=== PATIENT | male | born 1955 | race African-American/Black ===

== ENCOUNTER 2019-08-12 11:43 | Emergency (ER) | payer MEDICARE ==
[2019-08-12 12:15] LABS: ABSOLUTE EOSINOPHILS # (AUTO) 0.5 10^3/uL (0.0-0.6); ABSOLUTE MONOCYTES (AUTO) 0.5 10^3/uL (0.1-1.4); ABSOLUTE NEUT (AUTO) 3.5 10^3/uL (1.7-8.2); BASOPHILS % (AUTO) 0.7 % (0-2); EOSINOPHILS % (AUTO) 7.8 % (0-6); HEMATOCRIT 39.7 % (37.9-51.0); MEAN CORPUSCULAR HEMOGLOBIN 26.4 pg (27.0-33.4); MEAN CORPUSCULAR HGB CONC 32.8 g/dL (32.0-36.0); MEAN CORPUSCULAR VOLUME 80 fl (80-97); MONOCYTES % (AUTO) 7.7 % (3-13); PLATELET COUNT 220 10^3/uL (150-450); RED BLOOD COUNT 4.95 10^6/uL (4.35-5.55); RED CELL DISTRIBUTION WIDTH 14.2 % (11.5-14.0); SEGMENTED NEUTROPHILS % (AUTO) 53.8 % (42-78); TOTAL CELLS COUNTED % (AUTO) 100 %; WHITE BLOOD COUNT 6.5 10^3/uL (4.0-10.5)
[2019-08-12] MEDS ORDERED: ALBUTEROL SULFATE 0.083% NEB 2.5 MG/3 ML AMPUL NEB ONE ×2 (12:18→13:41)
[2019-08-12] MEDS ORDERED: IPRATROPIUM BROMIDE 0.02% NEB 0.5 MG/2.5 ML AMPUL NEB ONE (12:19)
--- NOTE | 2019-08-12 12:23 | ER Document Report ---
ED Respiratory Problem - General Chief Complaint: Chest Congestion Stated Complaint: DIFFICULTY BREATHING Primary Care Provider: ISAK MEJIA PT [Primary Care Provider] - Follow up as needed Mode of Arrival: Medic Information source: Patient, Relative - TRAVEL OUTSIDE OF THE [place] IN LAST 30 DAYS: No - HPI Patient complains to provider of: COPD, Short of breath Onset: Just prior to arrival Duration: Intermittent episodes Initiating Event: No: Allergy, Aspiration/Choking, Exertion, Exposure to chemicals, Exposure to dust, Exposure to fumes, Exposure to mold, Exposure to smoke, Out of meds, Sports/exercise, URI, Other Quality of pain: denies: No pain, Achy, Burning, Cramping, Dull, Fullness, Pressure, Sharp, Stabbing, Throbbing, Other Severity: None Pain Level: Denies Context: Hx COPD. denies: DVT, Factor V Leiden, Hx asthma, Hx CHF, Malignancy, , Recent cardiac event, Recent foreign travel, Recent long distance trvl, Recent immobilization, Recent surgery, Smoker, Other Short of Breath: Moderate Chest pain/discomfort: denies: Center, Constant, Heaviness, Intermittent, Left, Pain, Radiates to arm, Radiates to back, Radiates to jaw, Right, Tightness, Worse with deep breaths Cough: Nonproductive. denies: Productive, Stridor, Suspect aspiration Sputum amount: None At home treatment: Bronchodilators EMS treatments: Bronchodilators, Solumedrol. No: CPAP, Diuretics, Epinephrine, Nitrates, Oxygen Associated symptoms: denies: None, Ankle/leg swelling, Allergy/hay fever, Anx iety, Bloody cough, Chest pain/discomfort, Chills, Congestion, Cough, Dental decay, Difficulty breathing, Earache, Extertional dyspnea, Facial pain, Fever, Headache, Heart racing, Hoarseness, Hurts to breathe, Hyperventilation, Jaw pain, Leg/calf/joint pain, Muscle spasms, Orthopnea, PND, Runny nose, Sinus pain/pressure, Short of breath, Sore Throat, Sweaty, Tingling face, Tingling hands, Unable to swallow, Toothache, Wheezing, Other Similar symptoms previously: Yes - Related Data Allergies/Adverse Reactions: No Known Allergies Allergy (Unverified 08/12/19 12:03) Past Medical History - Social History Smoking Status: Unknown if Ever Smoked Family History: None Patient has suicidal ideation: No Patient has homicidal ideation: No - Past Medical History Cardiac Medical History: Reports: Hx Hypercholesterolemia, Hx Hypertension Endocrine Medical History: Reports: Hx Diabetes Mellitus Type 2 Past Surgical History: Reports: Hx Cardiac Surgery - stent x 2, Hx Nose Surgery - sinus sx x 2 Review of Systems - Review of Systems Constitutional: denies: No symptoms reported, See HPI, Chills, Diaphoresis, Fever, Malaise, Weakness, Other, Weight gain, Weight loss, Recent illness EENT: Nose discharge. denies: No symptoms reported, See HPI, Eye pain, Eye discharge, Blurred vision, Tearing, Double vision, Ear pain, Ear discharge, Nose pain, Nose congestion, Sinus pressure, Sinus discharge, Throat pain, Difficulty swallowing, Throat swelling, Mouth pain, Mouth swelling, Dental problem, Vertigo, Other Cardiovascular: denies: No symptoms reported, See HPI, Chest pain, Palpitations, Heart racing, Orthopnea, Dyspnea, Syncope, Dizziness, Lightheaded, Edema, Other, Paroxysmal Nocturnal Dysp Respiratory: Short of breath, Wheezing. denies: No symptoms reported, See HPI, Cough, Hurts to breathe, Hemoptysis, Sputum, Stridor, Other Gastrointestinal: denies: No symptoms reported, See HPI, Abdomen distended, Abdominal pain, Diarrhea, Nausea, Vomiting, Constipation, Blood streaked bowels, Poor appetite, Poor fluid intake, Blood in vomit, Black stools, Rectal bleeding, Last bowel movement, Fecal incontinence, Other Genitourinary: denies: No symptoms reported, See HPI, Burning, Dysuria, Discharge, Frequency, Flank pain, Hematuria, Incontinence, Pain, Urgency, Retention, Other Musculoskeletal: denies: No symptoms reported, See HPI, Back pain, Gout, Joint pain, Joint swelling, Muscle pain, Muscle stiffness, Neck pain, Deformity, Leg swelling, Ankle swelling, Other Neurological/Psychological: denies: No symptoms reported, See HPI, Confusion, Dementia, Depression, Hallucinations, Anxiety, Homicidal ideation, Sensory change, Weakness, Gait changes, Loss of power, Paralysis, Seizure, Lost consciousness, Headaches, Speech impairment, Numbness, Suicidal ideation, Tingling, Tremor, Other -: Yes All other systems reviewed and negative Physical Exam - Vital signs Vitals: Resp 14 08/12/19 11:45 Notes: PHYSICAL EXAMINATION: GENERAL: Well-appearing, well-nourished and in no acute distress. HEAD: Atraumatic, normocephalic. EYES: Pupils equal round and reactive to light, extraocular movements intact, sclera anicteric, conjunctiva are normal. ENT: nares patent, oropharynx clear without exudates. Moist mucous membranes. NECK: Normal range of motion, supple without lymphadenopathy LUNGS: Diminished air movement bilaterally however wheezes are heard bilaterally no rales or rhonchi appreciated HEART: Regular rate and rhythm without murmurs ABDOMEN: Soft, nontender, normoactive bowel sounds. No guarding, no rebound. No masses appreciated. EXTREMITIES: Normal range of motion, no pitting or edema. No cyanosis. NEUROLOGICAL: No focal neurological deficits. Moves all extremities spontaneous ly and on command. PSYCH: Normal mood, normal affect. SKIN: Warm, Dry, normal turgor, no rashes or lesions noted. Course - Vital Signs Vital signs: Temp Pulse Resp BP Pulse Ox 21 H 141/92 H 96 08/12/19 12:01 08/12/19 12:01 08/12/19 12:03 - Laboratory Result Diagrams: 08/12/19 11:50 08/12/19 11:50 Laboratory results interpreted by me: 08/12/19 08/12/19 11:50 11:50 Hgb 13.0 L MCH 26.4 L RDW 14.2 H Eos % (Auto) 7.8 H Sodium 136.8 L Glucose 195 H - Diagnostic Test Radiology reviewed: Image reviewed, Reports reviewed - EKG Interpretation by De EKG shows normal: Sinus rhythm Rate: Normal [place]/QRS: LAHB/LAFB When compared to previous EKG there are: Previous EKG unavailable - Transfer of Care Notes: 08/12/19 13:42 On reexam lungs have occasional wheezes. Patient feels better I will give him 1 more neb treatment with his labs negative and he feeling better he will go home on steroids albuterol Nebules and albuterol MDI. And follow-up with his regular doctor return if he is any worse Discharge - Discharge Clinical Impression: Bronchospasm with bronchitis, acute Clinical Impression: (Ruled Out): Bronchitis Condition: Stable Disposition: HOME, SELF-CARE Instructions: Bronchitis With Bronchospasm (Wheezing) ([facility]) Additional Instructions: If chest pain occurs shortness of breath worsens or condition worsens Prescriptions: Prednisone [Deltasone 20 mg Tablet] 20 mg PO DAILY #5 tablet Albuterol Sulfate [Proair HFA Inhalation Aerosol 8.5 gm MDI] 2 puff IH Q4H PRN #1 mdi PRN Reason: Albuterol Sulfate [Proventil 0.5% Neb 2.5 mg/0.5 ml Vial.neb] 2.5 mg NEB Q6 PRN #20 vial.neb PRN Reason: Shortness Of Breath Referrals: ISAK MEJIA, PT [Primary Care Provider] - Follow up as needed
--- NOTE | 2019-08-12 12:30 | RADIOLOGY REPORT (SQ) ---
EXAM DESCRIPTION: CHEST SINGLE VIEW COMPLETED DATE/TIME: 08/12/2019 12:21 pm REASON FOR STUDY: bed 10 sepsis protocol COMPARISON: None. EXAM PARAMETERS: NUMBER OF VIEWS: One view. TECHNIQUE: Single frontal radiographic view of the chest acquired. RADIATION DOSE: NA LIMITATIONS: None. FINDINGS: LUNGS AND PLEURA: No consolidation, pleural effusion or pneumothorax. MEDIASTINUM AND HILAR STRUCTURES: No mediastinal or hilar contour abnormality. HEART AND VASCULAR STRUCTURES: The cardiac silhouette and pulmonary vasculature are within normal lewis its. BONES: No acute findings. HARDWARE: None in the chest. OTHER: No other finding. IMPRESSION: No acute cardiopulmonary process. TECHNICAL DOCUMENTATION: JOB ID: [id number] [employer]- All Rights Reserved Reading location - IP/workstation name: [email or web address]
[2019-08-12 12:36] LABS: ALBUMIN 4.1 g/dL (3.5-5.0); ALKALINE PHOSPHATASE 66 U/L (38-126); ANION GAP 10 (5-19); ASPARTATE AMINO TRANSFERASE 22 U/L (17-59); BILIRUBIN,DIRECT 0.2 mg/dL (0.0-0.4); BILIRUBIN,TOTAL 0.4 mg/dL (0.2-1.3); BLOOD UREA NITROGEN 16 mg/dL (7-20); CALCIUM 9.4 mg/dL (8.4-10.2); CARBON DIOXIDE 24 mmol/L (22-30); CHLORIDE 103 mmol/L (98-107); GLUCOSE 195 mg/dL (75-110); POTASSIUM 4.5 mmol/L (3.6-5.0); TOTAL PROTEIN 7.4 g/dL (6.3-8.2)
[2019-08-12 12:44] LABS: INTERNATIONAL RATION (INR) 0.94; PROTHROMBIN TIME 12.6 SEC (11.4-15.4)
--- NOTE | 2019-08-12 13:32 | EKG REPORT ---
SEVERITY:- ABNORMAL ECG - SINUS RHYTHM VENTRICULAR PREMATURE COMPLEX LEFT ANTERIOR FASCICULAR BLOCK LA ENLARGEMENT : Confirmed by: Charles Mcdowell MD 12-Aug-2019 13:31:40
[2019-08-12 14:56] VITALS: BP 148/72
== END 2019-08-12 14:57 | disposition home or self-care (01) ==
LOC: ER 11:43
DX: J20.9 Acute bronchitis, unspecified (principal); J44.0 Chronic obstructive pulmonary disease with (acute) lower respiratory infection; Z79.899 Other long term (current) drug therapy; I44.4 Left anterior fascicular block; I10 Essential (primary) hypertension; E11.9 Type 2 diabetes mellitus without complications; Z95.5 Presence of coronary angioplasty implant and graft
CPT/HCPCS: 93005; 36415; 85025; 85610; 80053; 84484; 71045; 93010; A9270; J3490; 94640; 99285

== ENCOUNTER 2019-10-02 05:36 | Emergency (ER) | payer MEDICARE ==
[2019-10-02] MEDS ORDERED: IPRATROPIUM/ALBUTEROL 0.5-2.5 MG/3 ML AMPUL NEB ONE (05:44)
[2019-10-02] MEDS ORDERED: NORMAL SALINE 1000 ML 1,000 ML IV ONE (05:44)
--- NOTE | 2019-10-02 05:47 | ER Document Report ---
ED Medical Screen (RME) - General Stated Complaint: TROUBLE BREATHING Time Seen by Provider: 10/02/19 05:39 Primary Care Provider: ISAK MEJIA PT [Primary Care Provider] - Follow up as needed Notes: 64-year-old male that comes emergency department by EMS for chief complaint of cough and difficulty breathing. Reportedly patient has had a cough for 10 days, he was seen, diagnosed with bronchitis, placed on amoxicillin. He has a history of CAD and stents, insulin-dependent diabetes, denies smoking, asthma, COPD, CHF history. Patient initially 91% on room air per EMS, given 1 albuterol and 2 duo nebs in route along with 125 mg of Solu-Medrol. Patient has improved his oxygenation and breathing rate per EMS. TRAVEL OUTSIDE OF THE [place] IN LAST 30 DAYS: No - Related Data Allergies/Adverse Reactions: No Known Allergies Allergy (Unverified 08/12/19 12:03) Past Medical History - Past Medical History Cardiac Medical History: Reports: Hx Hypercholesterolemia, Hx Hypertension Endocrine Medical History: Reports: Hx Diabetes Mellitus Type 2 Past Surgical History: Reports: Hx Cardiac Surgery - stent x 2, Hx Nose Surgery - sinus sx x 2 Physical Exam - Respiratory Breath sounds: Decreased air movement, Nonproductive cough - Frequent nonproductive coughing episodes but patient is oxygenating well, has only borderline tachypnea, is able to respond to questions without difficulty, Wheezing Course - Re-evaluation Re-evalutation: I have greeted and performed a rapid initial assessment of this patient. A comprehensive ED assessment and evaluation of the patient, analysis of test results and completion of the medical decision making process will be conducted by additional ED providers. Doctor's Discharge - Discharge Referrals: ISAK MEJIA PT [Primary Care Provider] - Follow up as needed
[2019-10-02 06:21] LABS: VENOUS BLOOD HCO3 25.5 mmol/L (20-32); VENOUS BLOOD PCO2 49.3 mmHg (35-63); VENOUS BLOOD PH 7.33 (7.30-7.42)
[2019-10-02 06:24] LABS: ABSOLUTE BASOPHILS # (AUTO) 0.1 10^3/uL (0.0-0.2); ABSOLUTE LYMPHOCYTES (AUTO) 1.8 10^3/uL (0.5-4.7); ABSOLUTE MONOCYTES (AUTO) 0.7 10^3/uL (0.1-1.4); ABSOLUTE NEUT (AUTO) 5.3 10^3/uL (1.7-8.2); BASOPHILS % (AUTO) 0.9 % (0-2); HEMATOCRIT 38.6 % (37.9-51.0); HEMOGLOBIN 12.6 g/dL (13.5-17.0); LYMPHOCYTES % (AUTO) 19.9 % (13-45); MEAN CORPUSCULAR HEMOGLOBIN 26.3 pg (27.0-33.4); MEAN CORPUSCULAR HGB CONC 32.7 g/dL (32.0-36.0); MEAN CORPUSCULAR VOLUME 80 fl (80-97); MONOCYTES % (AUTO) 8.2 % (3-13); PLATELET COUNT 255 10^3/uL (150-450); RED BLOOD COUNT 4.81 10^6/uL (4.35-5.55); RED CELL DISTRIBUTION WIDTH 14.5 % (11.5-14.0); TOTAL CELLS COUNTED % (AUTO) 100 %; WHITE BLOOD COUNT 8.9 10^3/uL (4.0-10.5)
[2019-10-02 06:37] LABS: ALBUMIN 4.2 g/dL (3.5-5.0); ALKALINE PHOSPHATASE 102 U/L (38-126); ANION GAP 10 (5-19); ASPARTATE AMINO TRANSFERASE 30 U/L (17-59); BILIRUBIN,DIRECT 0.2 mg/dL (0.0-0.4); BILIRUBIN,TOTAL 0.4 mg/dL (0.2-1.3); BLOOD UREA NITROGEN 15 mg/dL (7-20); CALCIUM 9.5 mg/dL (8.4-10.2); CARBON DIOXIDE 28 mmol/L (22-30); CHLORIDE 104 mmol/L (98-107); GLUCOSE 133 mg/dL (75-110); POTASSIUM 4.2 mmol/L (3.6-5.0); TOTAL PROTEIN 7.9 g/dL (6.3-8.2)
[2019-10-02 06:44] LABS: A TYPE INFLUENZA AG NEGATIVE (NEGATIVE); B INFLUENZA AG NEGATIVE (NEGATIVE)
--- NOTE | 2019-10-02 07:39 | RADIOLOGY REPORT (SQ) ---
EXAM DESCRIPTION: X-ray single view chest. CLINICAL HISTORY: 64 years Male, difficulty breathing COMPARISON: 08/12/2019 TECHNIQUE: Single portable x-ray view of the chest performed on 10/02/2019 at 6:54 AM FINDINGS: The lungs are well expanded and are clear. There is no evidence of a pneumothorax. The cardiac silhouette is normal in size and configuration. The mediastinal contours are normal. No acute osseous abnormality is identified. No focal soft tissue abnormalities are seen. Lines and tubes: None. IMPRESSION: No evidence of acute intrathoracic disease.
--- NOTE | 2019-10-02 08:00 | ER Document Report ---
ED General - General Chief Complaint: Shortness Of Breath Stated Complaint: TROUBLE BREATHING Time Seen by Provider: 10/02/19 05:39 Primary Care Provider: ISAK MEJIA PT [NO LOCAL MD] - Follow up as needed TRAVEL OUTSIDE OF THE [place] IN LAST 30 DAYS: No - HPI Notes: Patient is a 64-year-old male who presents emergency department for evaluation. He is deaf in 1 year, has been having difficulty hearing from the other, so the is the primary historian. Evidently just after [place] the patient developed a cough. It is continued, and now he is wheezing. He has had wheezing in the past. He actually has an nebulizer at home, but admits he is not been using it very frequently. He used it once in the middle the night, then called EMS when he was found to be more short of breath. states she just thinks he is coughing way too much. He has been on Tessalon Perles, which seem to be working only minimally. He was started on amoxicillin, started twice a day dosing on Saturday. states she has seen no improvement. He denies any pain of any sort. No nausea or vomiting. No known fevers. Eating and drinking normally. Normal bowel movements and urination. - Related Data Allergies/Adverse Reactions: No Known Allergies Allergy (Unverified 08/12/19 12:03) Home Medications: List reviewed, please see note Past Medical History - General Information source: Patient, Relative - - Social History Smoking Status: Never Smoker Chew tobacco use (# tins/day): No Frequency of alcohol use: None Drug Abuse: None Family History: None Patient has suicidal ideation: No Patient has homicidal ideation: No - Past Medical History Cardiac Medical History: Reports: Hx Coronary Artery Disease, Hx Hypercholesterolemia, Hx Hypertension Endocrine Medical History: Reports: Hx Diabetes Mellitus Type 2 Past Surgical History: Reports: Hx Cardiac Surgery - stent x 2, Hx Nose Surgery - sinus sx x 2 Review of Systems - Review of Systems Constitutional: No symptoms reported EENT: No symptoms reported Cardiovascular: No symptoms reported Physical Exam - Vital signs Vitals: Resp Pulse Ox 13 100 10/02/19 05:39 10/02/19 05:39 - Notes Notes: Vital signs reviewed, please refer to chart. Head is normocephalic, atraumatic. Pupils equal round, reactive to light. Right TM is obscured by cerumen. Oral mucosa is moist. Neck is supple without meningismus. Heart is regular rate and rhythm. Lungs reveal scattered rhonchi and occasional expiratory wheezes. Abdomen is soft, nontender, normoactive bowel sounds throughout. Extremities without cyanosis, clubbing. Posterior calves are nontender. 1+ bilateral pitting edema to calves. Peripheral pulses are equal. Skin is warm and dry. Patient is awake, alert, neurological exam is nonfocal. Course - Re-evaluation Re-evalutation: 10/02/19 08:01 Patient presents emergency department for evaluation. He had original medical exam was performed by the physician environmental emergencies assistant, please see his note. In short, this patient presented with a cough, has extensive wheezing. He is feeling improved significantly per the patient, looks improved significantly per the . Clinically, I am concerned about the possibility of a pneumonia in this 64-year-old gentleman with multiple medical issues. I will get him treated as such with a fluoroquinolone. His right TM is not visualized secondary to cerumen impaction. Orders placed for ear irrigation, nursing to complete. We will continue to monitor. 10/02/19 08:31 Irrigation of the ear is complete with complete resolution of impaction. Right TM is pearly andino with good light reflex. Patient is feeling improved. He is 94 to 96% on room air. I do have a clinical suspicion of pneumonia in this patient. He has not had any significant improvement. He has multiple comorbidities. I will go ahead and treat him for pneumonia. He is given his first dose of Levaquin here. I will send him home with Levaquin. He is instructed to take [id number] Robitussin in addition to the Tessalon Perles. He is to follow-up with primary care next week. He is again reminded that he needs to use his nebulizers at least 4 times a day. He and his both voiced understanding and the patient was discharged. - Vital Signs Vital signs: Temp Pulse Resp BP Pulse Ox 97.4 F 17 158/81 H 94 10/02/19 05:49 10/02/19 08:01 10/02/19 07:34 10/02/19 08:01 - Laboratory Result Diagrams: 10/02/19 06:00 10/02/19 06:00 Laboratory results interpreted by me: 10/02/19 10/02/19 10/02/19 06:00 06:00 07:44 Hgb 12.6 L MCH 26.3 L RDW 14.5 H Eos % (Auto) 11.0 H Absolute Eos (auto) 1.0 H Glucose 133 H POC Glucose 161 H - Diagnostic Test Radiology reviewed: Image reviewed, Reports reviewed Radiology results interpreted by me: 10/02/19 08:02 Chest X-Ray 10/02/19 05:43 IMPRESSION: No evidence of acute intrathoracic disease. - EKG Interpretation by Me Additional EKG results interpreted by me: 10/02/19 08:33 Sinus tachycardia with a rate of 111 bpm. Left axis deviation. No acute ST changes concerning for ischemia or infarction. Discharge - Discharge Clinical Impression: Impacted cerumen, right ear Pneumonia Qualifiers: Pneumonia type: due to unspecified organism Laterality: unspecified laterality Lung location: unspecified part of lung Qualified Code(s): J18.9 - Pneumonia, unspecified organism Condition: Stable Disposition: HOME, SELF-CARE Instructions: Pneumonia ([facility]) Additional Instructions: Clinically, your findings are most consistent with pneumonia. You can continue Tessalon Perles, also use Robitussin, plain, [id number] as needed for coughing. Take all the Levaquin as prescribed, starting tomorrow. Follow-up with primary care next week. Return to the emergency department with worsening or new concerning symptoms of any sort. Prescriptions: Levofloxacin [Levaquin 750 mg Tablet] 750 mg PO DAILY #4 tablet Referrals: ISAK MEJIA, PT [NO LOCAL MD] - Follow up as needed
[2019-10-02] MEDS ORDERED: GUAIFENESIN SYRP 200 MG/10 ML UDC PO ONE (08:30)
[2019-10-02] MEDS ORDERED: LEVOFLOXACIN 750 MG TABLET PO ONE (08:30)
[2019-10-02 08:54] VITALS: BP 157/82
--- NOTE | 2019-10-02 20:54 | EKG REPORT ---
SEVERITY:- ABNORMAL ECG - SINUS TACHYCARDIA LAD, CONSIDER LAFB OR INFERIOR INFARCT : Confirmed by: Parth Rivera 02-Oct-2019 20:54:09
== END 2019-10-02 08:54 | disposition home or self-care (01) ==
LOC: ER 05:36
DX: J18.9 Pneumonia, unspecified organism (principal); H61.21 Impacted cerumen, right ear; R00.0 Tachycardia, unspecified; R05 Cough; R06.2 Wheezing; R60.0 Localized edema; I25.10 Atherosclerotic heart disease of native coronary artery without angina pectoris; I10 Essential (primary) hypertension; E11.9 Type 2 diabetes mellitus without complications; Z95.5 Presence of coronary angioplasty implant and graft
CPT/HCPCS: 93005; 94640; 99285; 96360; 36415; 87040; 82962; 83605; 85025; 80053; 84484; 82803; 87804; 71045; 93010; A9270 ×3; J7030; J7620

== ENCOUNTER 2019-10-09 03:07 | Emergency (ER) | payer MEDICARE ==
--- NOTE | 2019-10-09 03:30 | ER Document Report ---
ED Respiratory Problem - General Chief Complaint: Shortness Of Breath Stated Complaint: SHORTNESS OF BREATH Time Seen by Provider: 10/09/19 03:16 Primary Care Provider: CATHERINE AVERY PA-C [Primary Care Provider] - Follow up in 3-5 days Information source: Relative Notes: 64-year-old male presented to ED for continued shortness of breath and cough since he was seen here on 02 October and diagnosed with pneumonia. She states he has been coughing more and more his secretions are clear patient is deaf and his family member is discussed with him his care. Patient has been treated with amoxicillin and then Levaquin has finished his Levaquin has not feeling any better. On route EMS did give him to [facility] nebulizer treatments and 125 of Solu- Medrol. TRAVEL OUTSIDE OF THE [place] IN LAST 30 DAYS: No - HPI Patient complains to provider of: Cough, Short of breath Onset: Last week Duration: Intermittent episodes Initiating Event: URI Quality of pain: No pain Severity: None Pain Level: Denies Cough: Productive Sputum amount: Small Sputum color: Clear At home treatment: Bronchodilators EMS treatments: Bronchodilators, Solumedrol Associated symptoms: Cough, PND, Runny nose, Short of breath Similar symptoms previously: Yes Recently seen / treated by doctor: Yes - Related Data Allergies/Adverse Reactions: No Known Allergies Allergy (Unverified 08/12/19 12:03) Past Medical History - General Information source: Relative - - Social History Smoking Status: Never Smoker Frequency of alcohol use: None Drug Abuse: None Lives with: Family Family History: None Patient has suicidal ideation: No Patient has homicidal ideation: No - Medical History Medical History: Other - Deaf - Past Medical History Cardiac Medical History: Reports: Hx Coronary Artery Disease, Hx Hypercholesterolemia, Hx Hypertension Pulmonary Medical History: Reports: None EENT Medical History: Reports: None Neurological Medical History: Reports: None Endocrine Medical History: Reports: Hx Diabetes Mellitus Type 2 Renal/ Medical History: Reports: None Malignancy Medical History: Reports None GI Medical History: Reports: None Musculoskeletal Medical History: Reports None Skin Medical History: Reports None Psychiatric Medical History: Reports: None Traumatic Medical History: Reports: None Infectious Medical History: Reports: None Past Surgical History: Reports: Hx Cardiac Surgery - stent x 2, Hx Nose Surgery - sinus sx x 2 - Immunizations Immunizations up to date: Yes Hx Diphtheria, Pertussis, Tetanus Vaccination: Yes Review of Systems - Review of Systems Constitutional: No symptoms reported EENT: Nose discharge, Sinus discharge Cardiovascular: No symptoms reported Respiratory: Cough, Short of breath, Sputum Gastrointestinal: No symptoms reported Genitourinary: No symptoms reported Male Genitourinary: No symptoms reported Musculoskeletal: No symptoms reported Skin: No symptoms reported Hematologic/Lymphatic: No symptoms reported Neurological/Psychological: No symptoms reported Physical Exam - Vital signs Vitals: Resp Pulse Ox 22 H 100 10/09/19 03:19 10/09/19 03:19 Interpretation: Normal - General General appearance: Appears well, Alert - HEENT Head: Normocephalic, Atraumatic Eyes: Normal Pupils: PERRL - Respiratory Respiratory status: No respiratory distress Chest status: Nontender Breath sounds: Normal, Productive cough, Rhonchi Chest palpation: Normal - Cardiovascular Rhythm: Regular Heart sounds: Normal auscultation Murmur: No - Abdominal Inspection: Normal Distension: No distension Bowel sounds: Normal Tenderness: Nontender Organomegaly: No organomegaly - Back Back: Normal, Nontender - Extremities General upper extremity: Normal inspection, Nontender, Normal color, Normal ROM, Normal temperature General lower extremity: Normal inspection, Nontender, Normal color, Normal ROM, Normal temperature, Normal weight bearing. No: Marilee's sign - Neurological Neuro grossly intact: Yes Cognition: Normal Orientation: AAOx4 [place] Coma Scale Eye Opening: Spontaneous [place] Coma Scale Verbal: Oriented Michael Coma Scale Motor: Obeys Commands [place] Coma Scale Total: 15 Speech: Normal Motor strength normal: LUE, RUE, LLE, RLE Sensory: Normal - Psychological Associated symptoms: Normal affect, Normal mood - Skin Skin Temperature: Warm Skin Moisture: Dry Skin Color: Normal Course - Re-evaluation Re-evalutation: 10/09/19 04:47 After performing a Medical Screening Examination, I estimate there is LOW risk for ACUTE CORONARY SYNDROME, RESPIRATORY FAILURE, SEPSIS OR MENINGITIS, thus I consider the discharge disposition reasonable. I have reevaluated this patient multiple times and no significant life threatening changes are noted. The patient and I have discussed the diagnosis and risks, and we agree with discharging home with close follow-up. We also discussed returning to the Emergency Department immediately if new or worsening symptoms occur. We have discussed the symptoms which are most concerning (e.g., changing or worsening pain, trouble swallowing or breathing, neck stiffness, fever) that necessitate immediate return. - Vital Signs Vital signs: Temp Pulse Resp BP Pulse Ox 98.1 F 20 138/88 H 100 10/09/19 03:29 10/09/19 04:01 10/09/19 04:45 10/09/19 04:01 - Diagnostic Test Radiology reviewed: Image reviewed, Reports reviewed Discharge - Discharge Clinical Impression: URI (upper respiratory infection) Qualifiers: URI type: unspecified viral URI Qualified Code(s): J06.9 - Acute upper respiratory infection, unspecified Condition: Stable Disposition: HOME, SELF-CARE Additional Instructions: UPPER RESPIRATORY ILLNESS: You have a viral infection of the respiratory passages -- a "cold." This common infection causes nasal congestion, drainage, and often sore throat and cough. It is highly contagious. The disease usually lasts about 10 to 14 days. There is no "cure" for the viral infection -- it must run its course. If there is a complication, such as bacterial infection in the nose, sinuses, middle ear, or bronchial tubes, antibiotics may be required. The antibiotics won't affect the virus. Drink plenty of fluids. A humidifier may help. An expectorant medication or decongestant may make you more comfortable. Use acetaminophen or ibuprofen for fever or aches. See the doctor if fever persists over two days, if there is any significant worsening of your symptoms, or if you simply fail to improve as expected. Coricidin H BP is the cold treatment for person with elevated blood pressure. [id number] medicine just ask your pharmacist if you cannot find it. You could also use Flonase which is [id number] 1 spray each nostril twice a day. You could also use salt soda solution gargles. These will help to remove the drainage from the back your throat. Salt and soda solution gargle 1 quart of water 1 tablespoon of salt 1 teaspoon of baking soda Mixed 3 ingredients together and boil for 1 minute Placed in a covered quart jar Use 1/2 ounce of cold solution to gargle 3 times a day COUGH-SUPPRESSANT & EXPECTORANT MEDICATION: You are to use a cough medication as needed for relief of symptoms. This medicine is a combination of an expectorant (to make the mucous thinner and more easily "coughed up") and a cough suppressant (to reduce the frequency of coughing). The cough-suppressant medicine is related to narcotics. You may experience mild nausea and sleepiness. Some patients who are very sensitive to narcotics may have stomach pain from this medicine. Taking the medicine with food reduces these side effects. Do not drive or work with machinery until you know how this medicine affects you. The expectorant should have no side effects. Iodine-containing expectorants (such as organidin) should not be taken by persons with active thyroid disease unless approved by your doctor. Call the doctor if you develop shortness of breath, hives, rash, itching, lightheadedness, or severe nausea and vomiting. INHALED BRONCHODILATORS: You have received a treatment of and/or prescription for an inhaled bronchodilator -- a medication which stimulates the airways in the lung to dilate. This improves the flow of air in asthma, bronchitis, and emphysema. These medicines have some similarity to adrenaline, and can cause similar side effects: shakiness, racing heart, and a sense of nervousness. These side effects decrease with time. Contact your doctor if these side effects are severe. Do not over-use the medicine. Too-frequent use of the inhaler may make it ineffective. Call your doctor if the inhaler is not controlling your symptoms at the prescribed doses. STEROID MEDICATION: You have been given an injection of or oral medicine of the cortisone/steroid class. This medication is used to control inflammation or allergy. Raciel t is usually only given for a short period of time, until the acute process subsides. There are usually no side effects from short-term use of cortisone-like medications. Some persons feel an increased sense of well-being and are not sleepy at bedtime. Long-term use of cortisone medications is best avoided, unless required for a severe condition. If your condition does not remit, or relapses after the course of corticosteroid medication, you should consult your physician. USE OF ACETAMINOPHEN (Tylenol): Acetaminophen may be taken for pain relief or fever control. It's much safer than aspirin, offering a wider range of "safe" dosages. It is safe during . Some brand names are Tylenol, Panadol, Datril, Anacin 3, Tempra, and Liquiprin. Acetaminophen can be repeated every four hours. The following are maximum recommended dosages: >89 pounds or adults 650 mg to 900 mg Acetaminophen can be repeated every four hours. Maximum dose not to exceed 4000 mg a day. FOLLOW-UP CARE: If you have been referred to a physician for follow-up care, call the physicians office for an appointment as you were instructed or within the next two days. If you experience worsening or a significant change in your symptoms, notify the physician immediately or return to the Emergency Department at any time for re-evaluation. Forms: Elevated Blood Pressure Referrals: CATHERINE AVERY PA-C [Primary Care Provider] - Follow up in 3-5 days
--- NOTE | 2019-10-09 04:34 | RADIOLOGY REPORT (SQ) ---
EXAM DESCRIPTION: XR CHEST 2 VIEWS COMPLETED DATE/TME: 10/09/2019 03:24 CLINICAL HISTORY: 64 years, Male, cough congestion COMPARISON: October 02, 2019 NUMBER OF VIEWS: 2 TECHNIQUE: LIMITATIONS: None. FINDINGS: Cardiomediastinal silhouette is stable. Mild chronic parenchymal lung change. No consolidation. No effusion. No pneumothorax IMPRESSION: No active intrathoracic disease copyright 2010 [employer]- All Rights Reserved
[2019-10-09 04:45] VITALS: BP 138/88
== END 2019-10-09 05:00 | disposition home or self-care (01) ==
LOC: ER 03:07
DX: J06.9 Acute upper respiratory infection, unspecified (principal); R06.02 Shortness of breath; R05 Cough; R09.82 Postnasal drip; R09.89 Other specified symptoms and signs involving the circulatory and respiratory systems; I25.10 Atherosclerotic heart disease of native coronary artery without angina pectoris; I10 Essential (primary) hypertension; E11.9 Type 2 diabetes mellitus without complications
CPT/HCPCS: 71046; 99283

== ENCOUNTER 2019-10-15 04:01 | Emergency (ER) | payer MEDICARE ==
[2019-10-15] MEDS ORDERED: LIDOCAINE 1% INJ (10 MG/ML) 10 ML MDV INJ ONE (06:50)
[2019-10-15] MEDS ORDERED: IPRATROPIUM/ALBUTEROL 0.5-2.5 MG/3 ML AMPUL NEB ONE (06:50)
[2019-10-15 07:08] LABS: APPEARANCE,URINE CLEAR; BILIRUBIN,URINE NEGATIVE (NEGATIVE); COLOR,URINE YELLOW; GLUCOSE, URINE NEGATIVE (NEGATIVE); KETONES,URINE NEGATIVE (NEGATIVE); LEUKOCYTE ESTERASE,URINE NEGATIVE (NEGATIVE); NITRITE,URINE NEGATIVE (NEGATIVE); PROTEIN,URINE NEGATIVE (NEGATIVE); URINE SPECIFIC GRAVITY 1.011; UROBILINOGEN,URINE NEGATIVE mg/dL (<2.0)
--- NOTE | 2019-10-15 07:18 | ER Document Report ---
Entered by TONY SARAH SCRIBE 10/15/19 0639 Acting as scribe for:PABLITO MELENDEZ MD ED Respiratory Problem - General Chief Complaint: Cough Stated Complaint: COUGHING Time Seen by Provider: 10/15/19 06:37 Primary Care Provider: CATHERINE AVERY PA-C [Primary Care Provider] - Follow up as needed Information source: Relative Notes: This 64-year-old male patient presents to the emergency department today with complaints of a continued cough with associated shortness of breath and wheezing for weeks according to family member at bedside. This is the patient's third visit in the last x2 weeks for these same complaints. On 10/02/2019 the patient was discharged on Levaquin and told to use his nebulizer for his wheezing. On 10/09/2022 was seen in the emergency room and treated and discharged with no change in his medications. He has continued to cough and wheeze since then. Patient spouse reports that his cough has been productive, initially was yellow and changed to clear after the Levaquin. Patient has a nebulizer at home which he uses about 3x a day. PCP: Dr. Mike Hicks TRAVEL OUTSIDE OF THE [place] IN LAST 30 DAYS: No - Related Data Allergies/Adverse Reactions: No Known Allergies Allergy (Unverified 08/12/19 12:03) Past Medical History - General Information source: Relative, [facility], [facility] Records - Social History Smoking Status: Never Smoker Cigarette use (# per day): No Frequency of alcohol use: None Drug Abuse: None Lives with: Family Family History: None Patient has suicidal ideation: No Patient has homicidal ideation: No - Past Medical History Cardiac Medical History: Reports: Hx Coronary Artery Disease, Hx Hypercholesterolemia, Hx Hypertension Endocrine Medical History: Reports: Hx Diabetes Mellitus Type 2 Past Surgical History: Reports: Hx Cardiac Surgery - stent x 2, Hx Nose Surgery - sinus sx x 2 - Immunizations Immunizations up to date: Yes Hx Diphtheria, Pertussis, Tetanus Vaccination: Yes Review of Systems - Review of Systems Constitutional: denies: Fever EENT: No symptoms reported Cardiovascular: No symptoms reported Respiratory: See HPI, Cough, Short of breath, Sputum, Wheezing Gastrointestinal: No symptoms reported Genitourinary: No symptoms reported Male Genitourinary: No symptoms reported Musculoskeletal: No symptoms reported Skin: No symptoms reported Hematologic/Lymphatic: No symptoms reported Neurological/Psychological: No symptoms reported -: Yes All other systems reviewed and negative Physical Exam - Vital signs Vitals: Resp 18 10/15/19 04:10 - Notes Notes: Physical Exam: General: Alert, appears well. Difficulty hearing at baseline. HEENT: Normocephalic. Atraumatic. PERRL. Extraocular movements intact. Oropharynx clear. Difficulty hearing at baseline. Thick saliva. No posterior oropharynx erythema or exudate. TMs are clear and non-bulging. Neck: Supple. Non-tender. Respiratory: Mild to moderate respiratory distress. Coughs throughout exam, audible inspiratory and expiratory wheezing bilaterally. Cardiovascular: Regular rate and rhythm. Abdominal: Normal Inspection. Non-tender. No distension. Normal Bowel Sounds. Back: No gross abnormalities. Extremities: Moves all four extremities. Upper extremities: Normal inspection. Normal ROM. Lower extremities: Normal inspection. No edema. Normal ROM. Neurological: Normal cognition. AAOx4. Normal speech. Psychological: Normal affect. Normal Mood. Skin: Warm. Dry. Normal color. Course - Re-evaluation Re-evalutation: 10/15/19 09:19 After breathing treatments and magnesium, the patient states he feels much better. The wheezing is markedly reduced and mostly heard only when the patient coughs. There is still some rhonchi when he coughs but that is also markedly reduced after the breathing treatments. - Vital Signs Vital signs: Temp Pulse Resp BP Pulse Ox 98.2 F 19 162/103 H 96 10/15/19 04:19 10/15/19 08:01 10/15/19 08:01 10/15/19 08:01 - Laboratory Result Diagrams: 10/15/19 07:08 Laboratory results interpreted by me: 10/15/19 07:08 Glucose 189 H Creatine Kinase 317 H - EKG Interpretation by Mo EKG shows normal: Sinus rhythm, [place], Intervals, QRS Complexes, ST-T Waves Rate: Normal - 83 Rhythm: Arrthymia, PVC's [place]/QRS: LAHB/LAFB When compared to previous EKG there are: No significant change Discharge - Discharge Clinical Impression: Viral upper respiratory tract infection with cough, Acute bronchitis with bro nchospasm Condition: Stable Disposition: HOME, SELF-CARE Additional Instructions: Upper Respiratory Illness: You have a viral infection of the respiratory passages -- a "cold." This common infection causes nasal congestion, drainage, and often sore throat and cough. It is caused by a virus and is highly contagious. The disease usually lasts a week or more, though the worst symptoms are usually over in 3 or 4 days. There is no "cure" for the viral infection -- it must run its course. If there is a complication, such as bacterial infection in the nose, sinuses, middle ear, or bronchial tubes, antibiotics may be required, but antibiotics won't affect the virus. If you smoke, you should STOP!! Drink plenty of fluids. A humidifier may help. An expectorant medication or decongestant may make you more comfortable. Use acetaminophen or ibuprofen for fever or aches. See the doctor if fever persists over two or three days, if there is any significant worsening of your symptoms, or if you simply fail to improve as expected. Bronchitis with Bronchospasm (Wheezing): You have bronchitis with bronchospasm (wheezing). Sometimes people develop wheezing with a chest cold. This occurs either because of an underlying tendency toward asthma or because the virus itself irritates the bronchial tubes. This irritation causes cough, shortness of breath, and wheezing. Emergency treatment of bronchospasm may include adrenaline shots or bronchodilator aerosol. You may feel lightheaded and have a rapid pulse for an hour or two. Rest and get plenty of fluids. At home, we'll treat you with a bronchodilator inhaler. Corticosteroids may be required for some patients. Until you recover, avoid chemical fumes, dusts, pollens, and exercising in very cold or dry air. If you smoke, stop now! Most cases of bronchitis get better without antibiotics. We prescribe antibiotics when we believe bacteria are damaging your airways, or if there's high risk the bronchitis will worsen into pneumonia. Increase your fluid intake. A cool mist humidifier may make your lungs more comfortable. An expectorant (cough medicine that loosens phlegm) can help. Repeated episodes of bronchitis and bronchospasm may result in lung damage -- for example, chronic bronchitis, recurrent pneumonias, or emphysema. If you develop a fever, increased wheezing, chest pain, or severe shortness of breath, you should contact the doctor immediately. Take medications as prescribed. The prednisone is to suppress inflammation in your airways. It will likely make your blood sugars run higher, so check your sugars regularly and adjust your insulin dosing as needed. The Tessalon Perles are to help suppress your cough. The hydrocodone with acetaminophen tablets will be used to help suppress your cough. You can also add Delsym DM or the generic version to help control your cough. Be sure you drink plenty of fluids. Use your nebulizer every 4 hours. Follow-up with your primary care provider in the next few days for recheck if not improving. RETURN TO THE EMERGENCY ROOM IF ANY NEW OR WORSENING SYMPTOMS. Prescriptions: Prednisone [Deltasone 10 mg Tablet] 10 mg PO ASDIR PRN #21 tablet PRN Reason: Hydrocodone/Acetaminophen [[place] 5-325 mg Tablet] 1 tab PO ASDIR PRN #15 tablet PRN Reason: Benzonatate [Tessalon Perles 100 mg Capsule] 100 mg PO ASDIR PRN #30 capsule PRN Reason: Referrals: CATHERINE AVERY PA-C [Primary Care Provider] - Follow up as needed Scribe Attestation: 10/15/19 09:21 I personally performed the services described in the documentation, reviewed and edited the documentation which was dictated to the scribe in my presence, and it accurately records my words and actions. I personally performed the services described in the documentation, reviewed and edited the documentation which was dictated to the scribe in my presence, and it accurately records my words and actions.
[2019-10-15 07:42] LABS: ALBUMIN 4.3 g/dL (3.5-5.0); ALKALINE PHOSPHATASE 110 U/L (38-126); ANION GAP 7 (5-19); ASPARTATE AMINO TRANSFERASE 23 U/L (17-59); BILIRUBIN,TOTAL 0.3 mg/dL (0.2-1.3); BLOOD UREA NITROGEN 12 mg/dL (7-20); CALCIUM 9.6 mg/dL (8.4-10.2); CARBON DIOXIDE 28 mmol/L (22-30); CHLORIDE 103 mmol/L (98-107); CREATINE KINASE 317 U/L (55-170); GLUCOSE 189 mg/dL (75-110); POTASSIUM 4.6 mmol/L (3.6-5.0); TOTAL PROTEIN 7.8 g/dL (6.3-8.2)
[2019-10-15] MEDS: MAGNESIUM SULFATE/D5W 1 GM/100 ML RTUPB IV SCH ×2 (08:01→08:54)
[2019-10-15] MEDS ORDERED: ALBUTEROL SULFATE 0.083% NEB 2.5 MG/3 ML AMPUL NEB ONE (08:07)
--- NOTE | 2019-10-15 09:17 | RADIOLOGY REPORT (SQ) ---
EXAM DESCRIPTION: CHEST SINGLE VIEW COMPLETED DATE/TIME: 10/15/2019 8:43 am REASON FOR STUDY: COPD exacerbation COMPARISON: 10/09/2019. EXAM PARAMETERS: NUMBER OF VIEWS: One view. TECHNIQUE: Single frontal radiographic view of the chest acquired. RADIATION DOSE: NA LIMITATIONS: None. FINDINGS: LUNGS AND PLEURA: No opacities, masses or pneumothorax. No pleural effusion. MEDIASTINUM AND HILAR STRUCTURES: No masses. Contour normal. HEART AND VASCULAR STRUCTURES: Heart normal in size. Normal vasculature. BONES: No acute findings. Degenerative changes in the spine. HARDWARE: None in the chest. OTHER: No other significant finding. IMPRESSION: NO ACUTE RADIOGRAPHIC FINDING IN THE CHEST. TECHNICAL DOCUMENTATION: JOB ID: [id number] [employer]- All Rights Reserved Reading location - IP/workstation name: [email or web address]
[2019-10-15 09:32] VITALS: BP 175/103
--- NOTE | 2019-10-15 12:35 | EKG REPORT ---
SEVERITY:- ABNORMAL ECG - SINUS ARRHYTHMIA, RATE 75-92 VENTRICULAR PREMATURE COMPLEX LEFT ANTERIOR FASCICULAR BLOCK : Confirmed by: Charles Mcdowell MD 15-Oct-2019 12:35:08
== END 2019-10-15 09:37 | disposition home or self-care (01) ==
LOC: ER 04:01
DX: J20.9 Acute bronchitis, unspecified (principal); J06.9 Acute upper respiratory infection, unspecified; B97.89 Other viral agents as the cause of diseases classified elsewhere; R05 Cough; R06.02 Shortness of breath; R06.2 Wheezing; I10 Essential (primary) hypertension; I25.10 Atherosclerotic heart disease of native coronary artery without angina pectoris; I44.4 Left anterior fascicular block; I49.3 Ventricular premature depolarization; E11.9 Type 2 diabetes mellitus without complications; Z95.5 Presence of coronary angioplasty implant and graft; Z79.899 Other long term (current) drug therapy
CPT/HCPCS: 93005; 99284; 36415; 82550; 80053; 81001; 84484; 71045; 93010; J3475; A9270 ×2; J7620

== ENCOUNTER 2019-10-24 03:37 | Emergency (ER) | payer MEDICARE ==
[2019-10-24] MEDS ORDERED: IPRATROPIUM/ALBUTEROL 0.5-2.5 MG/3 ML AMPUL NEB ONE (04:03)
[2019-10-24 06:14] LABS: ABSOLUTE EOSINOPHILS # (AUTO) 0.2 10^3/uL (0.0-0.6); ABSOLUTE LYMPHOCYTES (AUTO) 0.4 10^3/uL (0.5-4.7); ABSOLUTE MONOCYTES (AUTO) 0.1 10^3/uL (0.1-1.4); ABSOLUTE NEUT (AUTO) 5.7 10^3/uL (1.7-8.2); BASOPHILS % (AUTO) 0.7 % (0-2); EOSINOPHILS % (AUTO) 3.3 % (0-6); HEMATOCRIT 39.5 % (37.9-51.0); HEMOGLOBIN 12.9 g/dL (13.5-17.0); LYMPHOCYTES % (AUTO) 6.3 % (13-45); MEAN CORPUSCULAR HEMOGLOBIN 26.4 pg (27.0-33.4); MEAN CORPUSCULAR HGB CONC 32.6 g/dL (32.0-36.0); MEAN CORPUSCULAR VOLUME 81 fl (80-97); MONOCYTES % (AUTO) 2.3 % (3-13); PLATELET COUNT 242 10^3/uL (150-450); RED BLOOD COUNT 4.87 10^6/uL (4.35-5.55); RED CELL DISTRIBUTION WIDTH 14.6 % (11.5-14.0); SEGMENTED NEUTROPHILS % (AUTO) 87.4 % (42-78); TOTAL CELLS COUNTED % (AUTO) 100 %; WHITE BLOOD COUNT 6.5 10^3/uL (4.0-10.5)
[2019-10-24 06:30] LABS: ALBUMIN 3.9 g/dL (3.5-5.0); ALKALINE PHOSPHATASE 92 U/L (38-126); ANION GAP 8 (5-19); ASPARTATE AMINO TRANSFERASE 19 U/L (17-59); BILIRUBIN,DIRECT 0.3 mg/dL (0.0-0.4); BILIRUBIN,TOTAL 0.3 mg/dL (0.2-1.3); BLOOD UREA NITROGEN 13 mg/dL (7-20); CALCIUM 9.3 mg/dL (8.4-10.2); CARBON DIOXIDE 28 mmol/L (22-30); CHLORIDE 101 mmol/L (98-107); GLUCOSE 222 mg/dL (75-110); POTASSIUM 4.2 mmol/L (3.6-5.0); TOTAL PROTEIN 7.2 g/dL (6.3-8.2)
[2019-10-24 06:42] LABS: CREATINE KINASE MB 3.75 ng/mL (<4.55)
[2019-10-24 06:45] LABS: APPEARANCE,URINE CLEAR; BILIRUBIN,URINE NEGATIVE (NEGATIVE); COLOR,URINE YELLOW; GLUCOSE, URINE 50 mg/dL (NEGATIVE); KETONES,URINE NEGATIVE (NEGATIVE); LEUKOCYTE ESTERASE,URINE NEGATIVE (NEGATIVE); NITRITE,URINE NEGATIVE (NEGATIVE); PROTEIN,URINE NEGATIVE (NEGATIVE); URINE SPECIFIC GRAVITY 1.014; UROBILINOGEN,URINE NEGATIVE mg/dL (<2.0)
--- NOTE | 2019-10-24 06:52 | RADIOLOGY REPORT (SQ) ---
EXAM: XR Chest, 1 View EXAM DATE/TIME: 10/24/2019 04:02 CLINICAL HISTORY: The patient is 64 years old and is Male; difficulty breathing TECHNIQUE: Frontal view of the chest. COMPARISON: Chest radiograph from 10/15/2019 FINDINGS: LUNGS: Unremarkable. No consolidation. PLEURAL SPACE: Unremarkable. No pneumothorax. HEART: No significant enlargement of the cardiac silhouette. MEDIASTINUM: Unremarkable. BONES/JOINTS: Degenerative changes of the spine. No obvious acute fracture. IMPRESSION: No acute findings visualized in the chest.
[2019-10-24 06:54] LABS: NT PRO BNP 33 pg/mL (<125)
[2019-10-24 06:55] LABS: TROPONIN I < 0.012 ng/mL
[2019-10-24] MEDS ORDERED: INSULIN LISPRO 100 UNIT/ML 3 ML VIAL SUBCUT ONE (10:19)
--- NOTE | 2019-10-24 10:26 | ER Document Report ---
ED General - General Chief Complaint: Breathing Difficulty Stated Complaint: BREATHING DIFFICULTIES Time Seen by Provider: 10/24/19 10:05 Primary Care Provider: CATHERINE AVERY PA-C [Primary Care Provider] - Follow up as needed Mode of Arrival: Ambulatory Information source: Patient Notes: 64-year-old black male arrives by POV ambulatory with his with chief comp laint of around 10 days to 2-week history of URI asthmatic bronchitis and flulike symptoms. He is IDDM and takes 15 units Humalog a.m. and 8 units nightly with 500 mg of metformin daily. Reports she has not eaten today and is been here since 0 300. Patient was provided with meal and insulin and will receive a nasal flu swab. He has been on Levaquin 750 for 10 days now. Patient also has been on breathing treatments and Tessalon Perles without resolution of his symptoms. He speaks with nasal congestion and denies any sore throat and feels like he has asthma attack. He does use nebulizer treatments at home. He reports none of this has been helping him. TRAVEL OUTSIDE OF THE [place] IN LAST 30 DAYS: No - HPI Onset: This morning Onset/Duration: Persistent Quality of pain: Pressure Severity: Mild Pain Level: 1 Associated symptoms: Nonproductive cough, Hoarseness, Sinus pain/drainage, Shortness of breath Exacerbated by: Movement, Coughing, Deep breathing Relieved by: Denies Similar symptoms previously: Yes Recently seen / treated by doctor: Yes - Related Data Allergies/Adverse Reactions: No Known Allergies Allergy (Unverified 08/12/19 12:03) Home Medications: lisinopril, metformin, novalog 70/30 15 in am-8 in evening, elvin emmanuel Past Medical History - General Information source: Patient, Relative - also is main historian patient is good reliable historian as well. reports she has A. fib and has not eaten this morning as well. - Social History Smoking Status: Never Smoker Cigarette use (# per day): No Chew tobacco use (# tins/day): No Smoking Education Provided: No Frequency of alcohol use: None Family History: DM Patient has suicidal ideation: No Patient has homicidal ideation: No - Past Medical History Cardiac Medical History: Reports: Hx Coronary Artery Disease, Hx Hyperchole sterolemia, Hx Hypertension Endocrine Medical History: Reports: Hx Diabetes Mellitus Type 2 Past Surgical History: Reports: Hx Cardiac Surgery - stent x 2, Hx Nose Surgery - sinus sx x 2 - Immunizations Immunizations up to date: Yes Hx Diphtheria, Pertussis, Tetanus Vaccination: Yes Review of Systems - Review of Systems Constitutional: See HPI, Malaise, Weakness, Recent illness EENT: Nose congestion, Sinus pressure Cardiovascular: No symptoms reported Respiratory: Cough, Short of breath, Sputum Gastrointestinal: No symptoms reported Genitourinary: No symptoms reported Male Genitourinary: No symptoms reported Musculoskeletal: No symptoms reported Skin: No symptoms reported Hematologic/Lymphatic: No symptoms reported Neurological/Psychological: No symptoms reported Physical Exam - Vital signs Vitals: Resp 14 10/24/19 05:58 Interpretation: Hypertensive, Tachypneic - General General appearance: Alert In distress: None - Respiratory Respiratory status: No respiratory distress Chest status: Nontender Breath sounds: Nonproductive cough, Wheezing Chest palpation: Normal - Cardiovascular Rhythm: Regular Heart sounds: Normal auscultation Murmur: No Friction rub: No Madeline's crunch: No - Abdominal Inspection: Normal Distension: No distension Tenderness: Nontender Organomegaly: No organomegaly - Genitourinary Scrotum: Normal - Back Back: Normal - Extremities General upper extremity: Normal inspection General lower extremity: Normal inspection - Neurological Neuro grossly intact: Yes Cognition: Normal Orientation: AAOx4 Delevan Coma Scale Eye Opening: Spontaneous Dele[place] Coma Scale Verbal: Oriented Speech: Normal Cranial nerves: Normal Cerebellar coordination: Normal - Psychological Associated symptoms: Normal affect - Skin Skin Temperature: Warm Skin Moisture: Dry Course - Vital Signs Vital signs: Temp Pulse Resp BP Pulse Ox 19 151/84 H 100 10/24/19 11:01 10/24/19 11:01 10/24/19 11:01 - Laboratory Result Diagrams: 10/24/19 05:52 10/24/19 05:52 Laboratory results interpreted by me: 10/24/19 10/24/19 10/24/19 05:52 05:52 05:52 Hgb 12.9 L MCH 26.4 L RDW 14.6 H Lymph % (Auto) 6.3 L Ell[place] % (Auto) 2.3 L Absolute Lymphs (auto) 0.4 L Seg Neutrophils % 87.4 H Glucose 222 H POC Glucose Urine Glucose (UA) 50 H 10/24/19 10/24/19 08:35 11:36 Hgb MCH RDW Lymph % (Auto) Ell[place] % (Auto) Absolute Lymphs (auto) Seg Neutrophils % Glucose POC Glucose 222 H 198 H Urine Glucose (UA) - Diagnostic Test Radiology reviewed: Reports reviewed - No Acute findings in chest per radiology Critical Care Note - Critical Care Note Total time excluding time spent on procedures (mins): 90 Comments: I advised patient and of the chest x-ray and lab findings Discharge - Discharge Clinical Impression: Hyperglycemia Asthmatic bronchitis with acute exacerbation Qualifiers: Asthma severity: unspecified severity Asthma persistence: unspecified Qualified Code(s): J45.901 - Unspecified asthma with (acute) exacerbation URI (upper respiratory infection) Qualifiers: URI type: unspecified URI Qualified Code(s): J06.9 - Acute upper respiratory infection, unspecified Condition: Good Disposition: HOME, SELF-CARE Prescriptions: Codeine Phosphate/Guaifenesin [Codeine-Guaifen 10-100 mg/5 ml] 5 ml PO Q6HP PRN #120 ml PRN Reason: Codeine Phosphate/Guaifenesin [Codeine-Guaifen 10-100 mg/5 ml] 5 ml PO Q6HP PRN #120 ml PRN Reason: Hydroxyzine HCl [Atarax 2 mg/ml Syrup] 10 mg PO TID PRN #120 ml PRN Reason: Congestion Doxycycline Monohydrate 100 mg PO BID #20 capsule Albuterol Sulfate [Proair HFA Inhalation Aerosol 8.5 gm MDI] 2 puff IH Q4H PRN #1 mdi PRN Reason: Referrals: CATHERINE AVERY PA-C [Primary Care Provider] - Follow up as needed
[2019-10-24] MEDS ORDERED: HYDROXYZINE HCL 2 MG/ML SYRUP 60 ML PO ONE (10:29)
[2019-10-24] MEDS ORDERED: ALBUTEROL SULFATE 0.083% NEB 2.5 MG/3 ML AMPUL NEB ONE (10:31)
[2019-10-24 11:14] LABS: A TYPE INFLUENZA AG NEGATIVE (NEGATIVE); B INFLUENZA AG NEGATIVE (NEGATIVE)
[2019-10-24] MEDS ORDERED: FLUCONAZOLE 100 MG TABLET PO ONE (11:51)
[2019-10-24 12:07] VITALS: BP 143/91
--- NOTE | 2019-10-24 23:22 | EKG REPORT ---
SEVERITY:- ABNORMAL ECG - SINUS RHYTHM LEFT ANTERIOR FASCICULAR BLOCK : Confirmed by: Parth Rivera 24-Oct-2019 23:21:23
== END 2019-10-24 12:19 | disposition home or self-care (01) ==
LOC: ER 03:37
DX: J45.901 Unspecified asthma with (acute) exacerbation (principal); E11.65 Type 2 diabetes mellitus with hyperglycemia; J06.9 Acute upper respiratory infection, unspecified; R09.81 Nasal congestion; R53.1 Weakness; R53.81 Other malaise; R05 Cough; R49.0 Dysphonia; J34.89 Other specified disorders of nose and nasal sinuses; R06.02 Shortness of breath; I25.10 Atherosclerotic heart disease of native coronary artery without angina pectoris; I10 Essential (primary) hypertension; Z79.899 Other long term (current) drug therapy; Z79.4 Long term (current) use of insulin; Z95.5 Presence of coronary angioplasty implant and graft
CPT/HCPCS: 93005; 94640 ×2; 99291; 99292; 36415; 82553; 82962; 85025; 80053; 81001; 84484; 87804; 83880; 71045; 93010; A9270 ×5; J1815; J7620

== ENCOUNTER 2019-10-28 22:28 | Observation (INO) | payer MEDICARE ==
[2019-10-28] MEDS ORDERED: IPRATROPIUM/ALBUTEROL 0.5-2.5 MG/3 ML AMPUL NEB ONE (23:04)
--- NOTE | 2019-10-28 23:06 | ER Document Report ---
ED Respiratory Problem - General Chief Complaint: Shortness Of Breath Stated Complaint: SHORTNESS OF BREATH Time Seen by Provider: 10/28/19 22:59 Notes: Patient is a 64-year-old male that comes to the emergency department by EMS for chief complaint of wheezing, cough, difficulty breathing. Patient reports over 3 weeks of symptoms at this point including congestion, cough, difficulty breathing, wheezing. He has a history of chronic bronchitis reportedly but not officially diagnosed with COPD. He also has a history of insulin-dependent di abetes, CAD with stent. He denies smoking or smoking history. Patient uses albuterol nebulizer but this was not working tonight. He was seen recently and given cough syrup, completing doxycycline, seen previously before that and took a short prednisone taper with Levaquin. Patient has had the influenza vaccine. He denies fevers, chest pain, vomiting, dizziness. at bedside. EMS already completed 2 duo nebs and 125 mg of Solu-Medrol. TRAVEL OUTSIDE OF THE [place] IN LAST 30 DAYS: No - Related Data Allergies/Adverse Reactions: No Known Allergies Allergy (Verified 10/28/19 23:10) Past Medical History - General Information source: Patient, Relative - - Social History Smoking Status: Never Smoker Frequency of alcohol use: None Drug Abuse: None Lives with: Family Family History: DM - Past Medical History Cardiac Medical History: Reports: Hx Coronary Artery Disease, Hx Hypercholesterolemia, Hx Hypertension Pulmonary Medical History: Reports: Hx Bronchitis Endocrine Medical History: Reports: Hx Diabetes Mellitus Type 2 Past Surgical History: Reports: Hx Cardiac Surgery - stent x 2, Hx Nose Surgery - sinus sx x 2 - Immunizations Immunizations up to date: Yes Hx Diphtheria, Pertussis, Tetanus Vaccination: Yes Review of Systems - Review of Systems Constitutional: No symptoms reported EENT: No symptoms reported Cardiovascular: No symptoms reported Respiratory: See HPI Gastrointestinal: No symptoms reported Genitourinary: No symptoms reported Male Genitourinary: No symptoms reported Musculoskeletal: No symptoms reported Skin: No symptoms reported Hematologic/Lymphatic: No symptoms reported Neurological/Psychological: No symptoms reported Physical Exam - Vital signs Vitals: Temp Pulse Resp BP Pulse Ox 97.8 F 105 H 21 H 139/84 H 99 10/28/19 22:41 10/28/19 22:41 10/28/19 22:41 10/28/19 22:41 10/28/19 22:41 - Notes Notes: GENERAL: Alert, conversational, appears mildly uncomfortable with frequent coughing HEAD: Normocephalic, atraumatic. EYES: Pupils equal, round, and reactive to light. Extraocular movements intact. ENT: Oral mucosa moist, tongue midline. Oropharynx unremarkable. Airway patent. Nares patent, no nasal septal hematoma, TM's intact. NECK: Full range of motion. Supple. Trachea midline. LUNGS: Frequent congested cough, expiratory wheezes and scattered rhonchi throughout, borderline tachypnea. No labored breathing. HEART: Regular rate and rhythm. No murmur ABDOMEN: Soft, non-tender. Non-distended. EXTREMITIES: Moves all 4 extremities spontaneously. No edema, normal radial and dorsalis pedis pulses bilaterally. No cyanosis. BACK: no cervical, thoracic, lumbar midline tenderness. No saddle anesthesia, normal distal neurovascular exam. Moves all extremities in full range of motion. NEUROLOGICAL: Alert and oriented x3. Normal speech. Cranial nerves II through XII grossly intact. PSYCH: Normal affect, normal mood. SKIN: Warm, dry, normal turgor. No rashes or lesions noted. Course - Re-evaluation Re-evalutation: Patient with loud expiratory wheezes and coarse breath sound with congested cough on my initial evaluation. Oxygen occasionally borderline low on room air, no tachypnea noted except for coughing episodes, patient is not tachycardic or febrile. Chest x-ray unremarkable with no acute findings, EKG, CBC, chemistry, troponin, BNP without concerning findings. Eosinophils are somewhat elevated. Blood gas unremarkable, venous. Under evaluation patient is still wheezing after 3 DuoNeb treatments, magnesium, Solu-Medrol. His wheezing has improved, his coughing is reduced, he still complains of shortness of breath. We did attempt to ambulate patient but p atient became extremely dyspneic, tachycardic, and oxygen saturation dropped down to 90% on room air. Patient is not on oxygen at home. This is patient's fifth visit for bronchitis symptoms since last month. Because of patient's continued wheezing, oxygen saturation, difficulty breathing, and repeated visits for the same, discussed with Dr. Blair, discussed with patient, will discuss with hospitalist for admission. Discussed with Dr. Munson, patient accepted to telemetry observation. - Vital Signs Vital signs: Temp Pulse Resp BP Pulse Ox 97.3 F 101 H 17 147/93 H 98 10/29/19 05:38 10/29/19 05:38 10/29/19 06:00 10/29/19 05:38 10/29/19 06:00 - Laboratory Result Diagrams: 10/28/19 22:23 10/28/19 22:23 Laboratory results interpreted by me: 10/28/19 10/28/19 22:23 22:23 Hgb 12.6 L MCH 26.8 L RDW 14.8 H Eos % (Auto) 10.7 H Absolute Eos (auto) 0.9 H Glucose 149 H Discharge - Discharge Clinical Impression: Hypoxia, Wheezing, Dyspnea on exertion Condition: Stable Disposition: ADMITTED OBSERVATION Admitting Provider: Arpit (Hospitalist) Unit Admitted: Telemetry
--- NOTE | 2019-10-28 23:15 | RADIOLOGY REPORT (SQ) ---
EXAM DESCRIPTION: [facility]: XR CHEST 1 VIEW CLINICAL HISTORY: 64 years Male; SOB; COMPARISON: 10/28/2019 FINDINGS: Lungs are clear, with no focal infiltrate, pneumothorax, or pleural effusion. Mediastinum is within normal limits for this positioning. Bony structures are unremarkable. IMPRESSION: 1. No acute pulmonary findings.
[2019-10-28] MEDS: MAGNESIUM SULFATE/D5W 1 GM/100 ML RTUPB IV SCH (23:25)
[2019-10-28 23:45] LABS: VENOUS BLOOD BASE EXCESS 1.3 mmol/L; VENOUS BLOOD PCO2 59.8 mmHg (35-63); VENOUS BLOOD PH 7.3 (7.30-7.42)
[2019-10-28 23:47] LABS: ABSOLUTE BASOPHILS # (AUTO) 0.1 10^3/uL (0.0-0.2); ABSOLUTE EOSINOPHILS # (AUTO) 0.9 10^3/uL (0.0-0.6); ABSOLUTE LYMPHOCYTES (AUTO) 1.4 10^3/uL (0.5-4.7); ABSOLUTE MONOCYTES (AUTO) 0.5 10^3/uL (0.1-1.4); ABSOLUTE NEUT (AUTO) 5.5 10^3/uL (1.7-8.2); BASOPHILS % (AUTO) 0.7 % (0-2); EOSINOPHILS % (AUTO) 10.7 % (0-6); HEMATOCRIT 37.9 % (37.9-51.0); HEMOGLOBIN 12.6 g/dL (13.5-17.0); LYMPHOCYTES % (AUTO) 16.8 % (13-45); MEAN CORPUSCULAR HEMOGLOBIN 26.8 pg (27.0-33.4); MEAN CORPUSCULAR HGB CONC 33.1 g/dL (32.0-36.0); MEAN CORPUSCULAR VOLUME 81 fl (80-97); MONOCYTES % (AUTO) 5.5 % (3-13); PLATELET COUNT 237 10^3/uL (150-450); RED BLOOD COUNT 4.69 10^6/uL (4.35-5.55); RED CELL DISTRIBUTION WIDTH 14.8 % (11.5-14.0); SEGMENTED NEUTROPHILS % (AUTO) 66.3 % (42-78); TOTAL CELLS COUNTED % (AUTO) 100 %; WHITE BLOOD COUNT 8.3 10^3/uL (4.0-10.5)
[2019-10-29] LABS: ALBUMIN 3.8 g/dL (3.5-5.0); ALKALINE PHOSPHATASE 84 U/L (38-126); ANION GAP 6 (5-19); ASPARTATE AMINO TRANSFERASE 20 U/L (17-59); BILIRUBIN,DIRECT 0.1 mg/dL (0.0-0.4); BILIRUBIN,TOTAL 0.2 mg/dL (0.2-1.3); BLOOD UREA NITROGEN 15 mg/dL (7-20); CALCIUM 9.3 mg/dL (8.4-10.2); CARBON DIOXIDE 29 mmol/L (22-30); CHLORIDE 103 mmol/L (98-107); GLUCOSE 149 mg/dL (75-110); POTASSIUM 4.1 mmol/L (3.6-5.0); TOTAL PROTEIN 6.6 g/dL (6.3-8.2)
[2019-10-29] MEDS: MAGNESIUM SULFATE/D5W 1 GM/100 ML RTUPB IV SCH (00:09)
[2019-10-29 00:10] LABS: NT PRO BNP 36 pg/mL (<125); TROPONIN I < 0.012 ng/mL
[2019-10-29] MEDS ORDERED: ALBUTEROL SULFATE 0.083% NEB 2.5 MG/3 ML AMPUL NEB ONE (02:24)
[2019-10-29] MEDS ORDERED: HYDRALAZINE HCL INJ/PF 20 MG/1 ML SDV IV PRN (04:33)
[2019-10-29] MEDS ORDERED: IPRATROPIUM/ALBUTEROL 0.5-2.5 MG/3 ML AMPUL NEB PRN (04:34)
[2019-10-29] MEDS ORDERED: PREDNISONE 20 MG TABLET PO ONE (05:00)
[2019-10-29] MEDS ORDERED: DOXYCYCLINE HYCLATE 100 MG TABLET PO ONE (05:00)
[2019-10-29] MEDS: CHLORPHENIRAMINE MALEATE 4 MG TABLET PO SCH ×4 (05:39→22:20)
[2019-10-29] MEDS: HEPARIN SOD (PORCINE) 5,000 UNIT/ML 1 ML VIAL SUBCUT SCH ×3 (05:39→22:20)
--- NOTE | 2019-10-29 06:47 | PDOC H&P ---
History of Present Illness Admission Date/PCP: 10/29/19 05:09 CATHERINE AVERY PA-C Patient complains of: Shortness of breath and wheeze History of Present Illness: MIC DIAZ is a 64 year old male with a past medical history of diabetes, hypertension, dyslipidemia and coronary artery disease status post stenting. He presents with recurrent shortness of breath and nonproductive paroxysms of cough complaining of rhinorrhea and postnasal drip. He has been seen in the emergency department 5 times in the last month after relocating from [place]. He has been diagnosed several times with bronchitis and has short lived improvement requiring recurrent emergency department evaluations where he is found to have unremarkable chest x-ray and treated for acute bronchitis. Patient admits worsening of his symptoms as soon as prednisone is discontinued. His evaluation is notable for a CBC with eosinophilia. In the emergency department he seen received Solu-Medrol, albuterol and Atrovent and referred to the hospitalist for admission. He denies chest pain nausea vomiting diaphoresis. Past Medical History Cardiac Medical History: Reports: Coronary Artery Disease, Myocardial Infarction, Hyperlipidema, Hypertension Pulmonary Medical History: Reports: Bronchitis, Chronic Obstructive Pulmonary Disease (COPD) Endocrine Medical History: Reports: Diabetes Mellitus Type 2 Renal/ Medical History: Reports: None Malignancy Medical History: Reports: None GI Medical History: Reports: None Musculoskeltal Medical History: Reports: None Skin Medical History: Reports: None Psychiatric Medical History: Reports: None Infectious Medical History: Reports: None Past Surgical History Past Surgical History: Reports: Cardiac Catheterization, Coronary Stent Social History Information Source: Patient Lives with: Family Smoking Status: Never Smoker Electronic Cigarette use?: No Frequency of Alcohol Use: None Drugs: None - Advance Directive Resuscitation Status: Full Code Family History Family History: DM Parental Family History Reviewed: Yes Children Family History Reviewed: Yes Sibling(s) Family History Reviewed.: Yes Medication/Allergy Home Medications: Albuterol Sulfate [Proair HFA Inhalation Aerosol 8.5 gm MDI] 2 puff IH Q4H PRN #1 mdi 10/24/19 Codeine Phosphate/Guaifenesin [Codeine-Guaifen 10-100 mg/5 ml] 5 ml PO Q6HP PRN #120 ml 10/24/19 Doxycycline Monohydrate 100 mg PO BID #20 capsule 10/24/19 Hydroxyzine HCl [Atarax 2 mg/ml Syrup] 10 mg PO TID PRN #120 ml 10/24/19 Aspirin [Aspirin 81 mg Chewable Tablet] 81 mg PO DAILY 10/29/19 Insulin Aspart Prot/Insuln Asp [Novolog Mix 70-30 Flexpen] 8 unit SQ QPM 10/29/19 Insulin Aspart Prot/Insuln Asp [Novolog Mix 70-30 Flexpen] 15 unit SQ QAM 10/29/19 Lisinopril [Zestril] 40 mg PO DAILY 10/29/19 Metformin HCl 500 mg PO BID 10/29/19 Allergies/Adverse Reactions: No Known Allergies Allergy (Verified 10/28/19 23:10) Review of Systems Constitutional: PRESENT: as per HPI, fatigue. ABSENT: fever(s), headache(s), night sweats Eyes: ABSENT: visual disturbances Ears: ABSENT: hearing changes Cardiovascular: ABSENT: chest pain, dyspnea on exertion, edema, orthropnea, palpitations Respiratory: PRESENT: as per HPI, cough, dyspnea, other - Wheeze. ABSENT: sputum Gastrointestinal: ABSENT: abdominal pain, constipation, diarrhea, hematemesis, hematochezia, nausea, vomiting Genitourinary: ABSENT: dysuria, hematuria Musculoskeletal: ABSENT: joint swelling Integumentary: ABSENT: rash, wounds Neurological: ABSENT: abnormal gait, abnormal speech, confusion, dizziness, focal weakness, syncope Psychiatric: ABSENT: anxiety, depression, homidical ideation, suicidal ideation Endocrine: ABSENT: cold intolerance, heat intolerance, polydipsia, polyuria Hematologic/Lymphatic: ABSENT: easy bleeding, easy bruising Physical Exam Vital Signs: Temp Pulse Resp BP Pulse Ox 97.3 F 101 H 17 147/93 H 98 10/29/19 05:38 10/29/19 05:38 10/29/19 06:00 10/29/19 05:38 10/29/19 06:00 Intake & Output 10/27/19 10/28/19 10/29/19 11:59 11:59 11:59 Intake Total 200 Balance 200 Weight 105.233 kg General appearance: PRESENT: cooperative, mild distress, well-developed, well- nourished Head exam: PRESENT: atraumatic, normocephalic Eye exam: PRESENT: conjunctiva pink, EOMI, PERRLA. ABSENT: scleral icterus Ear exam: PRESENT: normal external ear exam Mouth exam: PRESENT: moist, tongue midline Neck exam: ABSENT: carotid bruit, JVD, lymphadenopathy, thyromegaly Respiratory exam: PRESENT: accessory muscle use, prolonged expiratory phas, symmetrical, tachypnea, wheezes. ABSENT: clear to auscultation roma, rhonchi, stridor Cardiovascular exam: PRESENT: RRR. ABSENT: diastolic murmur, rubs, systolic murmur Pulses: PRESENT: normal dorsalis pedis pul Vascular exam: PRESENT: normal capillary refill GI/Abdominal exam: PRESENT: normal bowel sounds, soft. ABSENT: distended, guarding, mass, organolmegaly, rebound, tenderness Rectal exam: PRESENT: deferred Extremities exam: PRESENT: full ROM. ABSENT: calf tenderness, clubbing, pedal edema Neurological exam: PRESENT: alert, awake, oriented to person, oriented to place, oriented to time, oriented to situation, CN II-XII grossly intact. ABSENT: motor sensory deficit Psychiatric exam: PRESENT: appropriate affect, normal mood. ABSENT: homicidal ideation, suicidal ideation Skin exam: PRESENT: dry, intact, warm. ABSENT: cyanosis, rash Results Laboratory Results: 10/28/19 22:23 10/28/19 22:23 10/28/19 10/28/19 10/28/19 22:23 22:23 22:23 WBC 8.3 RBC 4.69 Hgb 12.6 L Hct 37.9 MCV 81 MCH 26.8 L MCHC 33.1 RDW 14.8 H Plt Count 237 Seg Neutrophils % 66.3 VBG pH 7.30 VBG pCO2 59.8 VBG HCO3 29.0 VBG Base Excess 1.3 Sodium 138.2 Potassium 4.1 Chloride 103 Carbon Dioxide 29 Anion Gap 6 BUN 15 Creatinine 0.69 Est GFR ( Amer) > 60 Glucose 149 H Calcium 9.3 Total Bilirubin 0.2 AST 20 Alkaline Phosphatase 84 Total Protein 6.6 Albumin 3.8 10/28/19 22:23 Troponin I < 0.012 NT-Pro-B Natriuret Pep 36 Impressions: Chest X-Ray 10/28/19 22:44 IMPRESSION: 1. No acute pulmonary findings. 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 Prednisone initiated, titrate as tolerated. Flonase and chlorpheniramine consider follow-up pulmonology (2) Hypertension Is this a current diagnosis for this admission?: Yes Plan: Lisinopril discontinued as possible related to #1. Cozaar ordered. (3) Diabetes Is this a current diagnosis for this admission?: Yes Plan: Outpatient regiment reordered with Humalog sliding scale anticipate increased need while on increased glucocorticoid. (4) URI (upper respiratory infection) Is this a current diagnosis for this admission?: Yes Plan: Trial doxycycline. - Time Time Spent with patient: 25-34 minutes - Inpatient Certification Medical Necessity: Need Close Monitoring Due to Risk of Patient Decompensation
[2019-10-29] MEDS ORDERED: LOSARTAN POTASSIUM 50 MG TABLET PO ONE (07:00)
[2019-10-29] MEDS ORDERED: INSULN ASP SQ SCH ×2 (08:00→18:00)
[2019-10-29] MEDS ORDERED: [UNRECOGNIZED DRUG - OTHER] SQ SCH (08:00)
[2019-10-29] MEDS ORDERED: HUM INSULIN NPH/REG INSULIN HM 100 UNIT/1 ML 3 ML SUBCUT SCH ×3 (08:00→18:00)
[2019-10-29] MEDS ORDERED: INSULIN ASPART PROT SQ SCH ×2 (08:00→18:00)
[2019-10-29] MEDS ORDERED: IPRATROPIUM/ALBUTEROL 0.5-2.5 MG/3 ML AMPUL NEB SCH (08:00)
[2019-10-29] MEDS: LEVALBUTEROL HCL NEB 1.25 MG/3 ML AMPUL NEB SCH ×3 (08:10→20:30)
[2019-10-29] MEDS: IPRATROPIUM BROMIDE 0.02% NEB 0.5 MG/2.5 ML AMPUL NEB SCH ×3 (08:10→20:30)
[2019-10-29] MEDS: METFORMIN HCL 500 MG TABLET PO SCH ×2 (09:47→17:03)
[2019-10-29] MEDS: ASPIRIN 81 MG TABLET, CHEWABLE PO SCH (09:47)
[2019-10-29] MEDS: FLUTICASONE NASAL SPRAY 50 MCG/SPRY 120 SPRAY/16 GM NASL SCH ×2 (09:48→22:20)
[2019-10-29 13:28] LABS: APPEARANCE,URINE CLEAR; BILIRUBIN,URINE NEGATIVE (NEGATIVE); COLOR,URINE YELLOW; GLUCOSE, URINE >=500 mg/dL (NEGATIVE); KETONES,URINE TRACE mg/dL (NEGATIVE); LEUKOCYTE ESTERASE,URINE NEGATIVE (NEGATIVE); NITRITE,URINE NEGATIVE (NEGATIVE); PROTEIN,URINE NEGATIVE (NEGATIVE); URINE SPECIFIC GRAVITY 1.017; UROBILINOGEN,URINE NEGATIVE mg/dL (<2.0)
--- NOTE | 2019-10-29 15:05 | PDOC PROGRESS REPORT ---
Subjective Progress Note for:: 10/29/19 Subjective:: The patient is resting on the edge of the bed completing a nebulizer treatment. He spent some time making sure that I was aware of the 2 stents in his heart and his cardiac history. Reason For Visit: EOSINOPHILLIC REACTIVE AIRWAY Physical Exam Vital Signs: Temp Pulse Resp BP Pulse Ox 97.8 F 93 19 136/80 H 100 10/29/19 11:29 10/29/19 14:00 10/29/19 11:29 10/29/19 11:29 10/29/19 11:29 Intake & Output 10/28/19 10/29/19 10/30/19 06:59 06:59 06:59 Intake Total 200 Balance 200 Weight 105.233 kg General appearance: PRESENT: cooperative, mild distress, well-developed Head exam: PRESENT: atraumatic, normocephalic Respiratory exam: PRESENT: symmetrical, wheezes - Bilaterally. ABSENT: accessory muscle use, rales, rhonchi, tachypnea Cardiovascular exam: PRESENT: RRR, +S1, +S2 GI/Abdominal exam: PRESENT: normal bowel sounds, soft. ABSENT: distended, guarding, tenderness Rectal exam: PRESENT: deferred Musculoskeletal exam: PRESENT: ambulatory, normal inspection Neurological exam: PRESENT: alert, awake, oriented to person, oriented to place, oriented to time, oriented to situation, CN II-XII grossly intact. ABSENT: altered Psychiatric exam: PRESENT: appropriate affect. ABSENT: agitated, anxious Focused psych exam: ABSENT: delusional, restlessness Results Laboratory Results: 10/28/19 22:23 10/28/19 22:23 10/28/19 10/28/19 10/28/19 22:23 22:23 22:23 WBC 8.3 RBC 4.69 Hgb 12.6 L Hct 37.9 MCV 81 MCH 26.8 L MCHC 33.1 RDW 14.8 H Plt Count 237 Seg Neutrophils % 66.3 VBG pH 7.30 VBG pCO2 59.8 VBG HCO3 29.0 VBG Base Excess 1.3 Sodium 138.2 Potassium 4.1 Chloride 103 Carbon Dioxide 29 Anion Gap 6 BUN 15 Creatinine 0.69 Est GFR ( Amer) > 60 Glucose 149 H Calcium 9.3 Total Bilirubin 0.2 AST 20 Alkaline Phosphatase 84 Total Protein 6.6 Albumin 3.8 Urine Color Urine Appearance Urine pH Ur Specific [place] Urine Protein Urine Glucose (UA) Urine Ketones Urine Blood Urine Nitrite Ur Leukocyte Esterase Urine RBC (Auto) 10/29/19 13:10 WBC RBC Hgb Hct MCV MCH MCHC RDW Plt Count Seg Neutrophils % VBG pH VBG pCO2 VBG HCO3 VBG Base Excess Sodium Potassium Chloride Carbon Dioxide Anion Gap BUN Creatinine Est GFR ( Amer) Glucose Calcium Total Bilirubin AST Alkaline Phosphatase Total Protein Albumin Urine Color YELLOW Urine Appearance CLEAR Urine pH 6.0 Ur Specific [place] 1.017 Urine Protein NEGATIVE Urine Glucose (UA) >=500 H Urine Ketones TRACE H Urine Blood NEGATIVE Urine Nitrite NEGATIVE Ur Leukocyte Esterase NEGATIVE Urine RBC (Auto) 0 10/28/19 22:23 Troponin I < 0.012 NT-Pro-B Natriuret Pep 36 Impressions: Chest X-Ray 10/28/19 22:44 IMPRESSION: 1. No acute pulmonary findings. Assessment and Plan - Diagnosis (1) Asthmatic bronchitis with acute exacerbation Qualifiers: Asthma severity: moderate Asthma persistence: persistent Qualified Code(s): J45.41 - Moderate persistent asthma with (acute) exacerbation Is this a current diagnosis for this admission?: Yes Plan: The patient is receiving scheduled and as needed nebulizer treatments. In addition he is on systemic steroids. Continue aggressive regimen with the goal of returning to his preadmission regimen by the time of discharge. (2) Hypertension Qualifiers: Hypertension type: essential hypertension Qualified Code(s): I10 - Essential (primary) hypertension Is this a current diagnosis for this admission?: Yes Plan: Currently on losartan in place of his lisinopril. Beta-destinee therapy, although indicated in patients with coronary artery disease, may be problematic with his asthmatic bronchitis. He does need a desulphuring operator and will make a referral as an outpatient. (3) URI (upper respiratory infection) Qualifiers: URI type: unspecified URI Qualified Code(s): J06.9 - Acute upper respiratory infection, unspecified Is this a current diagnosis for this admission?: Yes Plan: Continue the doxycycline. (4) Hyperglycemia due to type 2 diabetes mellitus Qualifiers: Diabetes mellitus prison insulin use: with prison use Qualified Code(s): E11.65 - Type 2 diabetes mellitus with hyperglycemia; Z79.4 - jail (current) use of insulin Is this a current diagnosis for this admission?: Yes Plan: The patient is on combination therapy insulin. Unfortunately steroid therapy is increasing his glucose levels above the baseline elevation noted at admission. Continue the current regimen including sliding scale and adjust dosing based on Accu-Cheks. With his underlying coronary artery disease we will continue the angiotensin receptor destinee and I will add statin therapy (5) Coronary artery disease Qualifiers: Coronary Disease-Associated Artery/Lesion type: [place] artery [place] vs. t ransplanted heart: [place] heart Associated angina: without angina Qualified Code(s): I25.10 - Atherosclerotic heart disease of [place] coronary artery without angina pectoris Is this a current diagnosis for this admission?: Yes Plan: Patient has history of myocardial infarction with 2 stents. With his underlying respiratory illness a beta-destinee could worsen his disease. He does not have a desulphuring operator. And he might benefit from establishing locally. I will defer with regard to starting beta-destinee therapy. I will start low-dose statin therapy and continue an 81 mg aspirin. He is not exhibiting any signs of acute coronary syndrome. - Time Time Spent with patient: 15-24 minutes Medications reviewed and adjusted accordingly: Yes Anticipated discharge: Home
[2019-10-29] MEDS: PREDNISONE 20 MG TABLET PO SCH (17:03)
[2019-10-29] MEDS: HUM INSULIN NPH/REG INSULIN HM 100 UNIT/1 ML 3 ML SUBCUT SCH (17:03)
[2019-10-29] MEDS ORDERED: [UNRECOGNIZED DRUG - OTHER] SQ SCH (18:00)
--- NOTE | 2019-10-29 19:35 | EKG REPORT ---
SEVERITY:- ABNORMAL ECG - SINUS TACHYCARDIA MULTIPLE VENTRICULAR PREMATURE COMPLEXES LEFT ANTERIOR FASCICULAR BLOCK BORDERLINE T ABNORMALITIES, ANT-LAT LEADS : Confirmed by: Lakesha Earl MD 29-Oct-2019 19:34:44
[2019-10-29] MEDS: GUAIFENESIN 600 MG TABLET.SA PO SCH (22:19)
[2019-10-29] MEDS: LOSARTAN POTASSIUM 50 MG TABLET PO SCH (22:19)
[2019-10-29] MEDS: ATORVASTATIN CALCIUM 20 MG TABLET PO SCH (22:19)
[2019-10-29] MEDS: DOXYCYCLINE HYCLATE 100 MG TABLET PO SCH (22:20)
[2019-10-30] MEDS: IPRATROPIUM BROMIDE 0.02% NEB 0.5 MG/2.5 ML AMPUL NEB SCH ×4 (02:00→20:10)
[2019-10-30] MEDS: LEVALBUTEROL HCL NEB 1.25 MG/3 ML AMPUL NEB SCH ×4 (02:00→20:10)
[2019-10-30 05:30] LABS: ABSOLUTE LYMPHOCYTES (AUTO) 1.7 10^3/uL (0.5-4.7); ABSOLUTE MONOCYTES (AUTO) 0.7 10^3/uL (0.1-1.4); ABSOLUTE NEUT (AUTO) 6.7 10^3/uL (1.7-8.2); BASOPHILS % (AUTO) 0.3 % (0-2); EOSINOPHILS % (AUTO) 0.5 % (0-6); HEMATOCRIT 36.3 % (37.9-51.0); HEMOGLOBIN 11.9 g/dL (13.5-17.0); LYMPHOCYTES % (AUTO) 18.3 % (13-45); MEAN CORPUSCULAR HEMOGLOBIN 26.4 pg (27.0-33.4); MEAN CORPUSCULAR HGB CONC 32.9 g/dL (32.0-36.0); MEAN CORPUSCULAR VOLUME 80 fl (80-97); MONOCYTES % (AUTO) 7.3 % (3-13); PLATELET COUNT 234 10^3/uL (150-450); RED BLOOD COUNT 4.52 10^6/uL (4.35-5.55); RED CELL DISTRIBUTION WIDTH 14.7 % (11.5-14.0); SEGMENTED NEUTROPHILS % (AUTO) 73.6 % (42-78); TOTAL CELLS COUNTED % (AUTO) 100 %
[2019-10-30 05:34] LABS: ANION GAP 5 (5-19); BLOOD UREA NITROGEN 15 mg/dL (7-20); CALCIUM 9.3 mg/dL (8.4-10.2); CARBON DIOXIDE 31 mmol/L (22-30); CHLORIDE 103 mmol/L (98-107); GLUCOSE 154 mg/dL (75-110); POTASSIUM 4.9 mmol/L (3.6-5.0)
[2019-10-30] MEDS: HEPARIN SOD (PORCINE) 5,000 UNIT/ML 1 ML VIAL SUBCUT SCH ×3 (05:50→21:38)
[2019-10-30] MEDS: HUM INSULIN NPH/REG INSULIN HM 100 UNIT/1 ML 3 ML SUBCUT SCH ×2 (07:57→17:09)
[2019-10-30] MEDS ORDERED: (PENDING PHARMACY ID) (Doxycycline Monohydrate [Doxycycline Monohydrate] 100 MG) PO SCH (10:00)
[2019-10-30] MEDS: PREDNISONE 20 MG TABLET PO SCH ×2 (10:27→17:08)
[2019-10-30] MEDS: LOSARTAN POTASSIUM 50 MG TABLET PO SCH ×2 (10:27→21:39)
[2019-10-30] MEDS: ASPIRIN 81 MG TABLET, CHEWABLE PO SCH (10:27)
[2019-10-30] MEDS: GUAIFENESIN 600 MG TABLET.SA PO SCH ×2 (10:27→21:39)
[2019-10-30] MEDS: DOXYCYCLINE HYCLATE 100 MG TABLET PO SCH ×2 (10:27→21:38)
[2019-10-30] MEDS: FLUTICASONE NASAL SPRAY 50 MCG/SPRY 120 SPRAY/16 GM NASL SCH ×2 (10:27→21:39)
[2019-10-30] MEDS: METFORMIN HCL 500 MG TABLET PO SCH ×2 (10:27→17:08)
[2019-10-30] MEDS: ACETAMINOPHEN 325 MG TABLET PO PRN (10:28)
[2019-10-30] MEDS ORDERED: GUAIFENESIN PO PRN (12:29)
[2019-10-30] MEDS ORDERED: [UNRECOGNIZED DRUG - OTHER] PO PRN (12:29)
[2019-10-30] MEDS ORDERED: CODEINE PHOSPHATE PO PRN (12:29)
[2019-10-30] MEDS ORDERED: GUAIFENESIN/CODEINE PHOS 100-10 MG/ 5 ML UDC PO PRN (13:27)
--- NOTE | 2019-10-30 16:54 | PDOC PROGRESS REPORT ---
Subjective Progress Note for:: 10/30/19 Subjective:: MIC DIAZ is a 64 year old male with a past medical history of diabetes, hypertension, dyslipidemia and coronary artery disease status post stenting. He presents with recurrent shortness of breath and nonproductive paroxysms of cough complaining of rhinorrhea and postnasal drip. He has been seen in the emergency department 5 times in the last month after relocating from [place]. He has been diagnosed several times with bronchitis and has short lived improvement requiring recurrent emergency department evaluations where he is found to have unremarkable chest x-ray and treated for acute bronchitis. Patient admits worsening of his symptoms as soon as prednisone is discontinued. His evaluation is notable for a CBC with eosinophilia. In the emergency department he seen received Solu-Medrol, albuterol and Atrovent and referred to the hospitalist for admission. He denies chest pain nausea vomiting diaphoresis. 10/30/2019. No acute events overnight. Patient still complaining of persistent productive cough otherwise no complaints, denies any fever, chills, nausea, vomiting, diarrhea, constipation or any urinary symptoms, p.o. tolerant, ambulatory, having normal bowel and bladder movements. Reason For Visit: EOSINOPHILLIC REACTIVE AIRWAY Physical Exam Vital Signs: Temp Pulse Resp BP Pulse Ox 97.4 F 94 20 144/84 H 95 10/30/19 15:33 10/30/19 15:33 10/30/19 15:33 10/30/19 15:33 10/30/19 15:33 Intake & Output 10/29/19 10/30/19 10/31/19 06:59 06:59 06:59 Intake Total 200 2440 Balance 200 2440 Weight 105.233 kg 105.2 kg General appearance: PRESENT: no acute distress, well-developed, well-nourished Head exam: PRESENT: atraumatic, normocephalic Respiratory exam: PRESENT: prolonged expiratory phas. ABSENT: rales, rhonchi, wheezes Cardiovascular exam: PRESENT: RRR. ABSENT: diastolic murmur, rubs, systolic murmur GI/Abdominal exam: PRESENT: normal bowel sounds, soft. ABSENT: distended, guarding, mass, organolmegaly, rebound, tenderness Neurological exam: PRESENT: alert, awake, oriented to person, oriented to place, oriented to time, oriented to situation, CN II-XII grossly intact. ABSENT: motor sensory deficit Results Laboratory Results: 10/30/19 04:59 10/30/19 04:59 10/30/19 10/30/19 04:59 04:59 WBC 9.0 RBC 4.52 Hgb 11.9 L Hct 36.3 L MCV 80 MCH 26.4 L MCHC 32.9 RDW 14.7 H Plt Count 234 Seg Neutrophils % 73.6 Sodium 139.0 Potassium 4.9 Chloride 103 Carbon Dioxide 31 H Anion Gap 5 BUN 15 Creatinine 0.66 Est GFR ( Amer) > 60 Glucose 154 H Calcium 9.3 10/28/19 22:23 Troponin I < 0.012 NT-Pro-B Natriuret Pep 36 Impressions: Chest X-Ray 10/28/19 22:44 IMPRESSION: 1. No acute pulmonary findings. Assessment and Plan - Diagnosis (1) Asthmatic bronchitis with acute exacerbation Qualifiers: Asthma severity: moderate Asthma persistence: persistent Qualified Code(s): J45.41 - Moderate persistent asthma with (acute) exacerbation Is this a current diagnosis for this admission?: Yes Plan: The patient is receiving scheduled and as needed nebulizer treatments. In addition he is on systemic steroids. Continue aggressive regimen with the goal of returning to his preadmission regimen by the time of discharge. (2) Hyperglycemia due to type 2 diabetes mellitus Qualifiers: Diabetes mellitus exterminator termite insulin use: with exterminator termite use Qualified Code(s): E11.65 - Type 2 diabetes mellitus with hyperglycemia; Z79.4 - prison (current) use of insulin Is this a current diagnosis for this admission?: Yes Plan: The patient is on combination therapy insulin. Unfortunately steroid therapy is increasing his glucose levels above the baseline elevation noted at admission. Continue the current regimen including sliding scale and adjust dosing based on Accu-Cheks. With his underlying coronary artery disease we will continue the angiotensin receptor destinee and I will add statin therapy (3) Hypertension Qualifiers: Hypertension type: essential hypertension Qualified Code(s): I10 - Essential (primary) hypertension Is this a current diagnosis for this admission?: Yes Plan: Currently on losartan in place of his lisinopril. Beta-destinee therapy, although indicated in patients with coronary artery disease, may be problematic with his asthmatic bronchitis. He does need a chief service observer and will make a referral as an outpatient. (4) URI (upper respiratory infection) Qualifiers: URI type: unspecified URI Qualified Code(s): J06.9 - Acute upper respiratory infection, unspecified Is this a current diagnosis for this admission?: Yes Plan: Continue the doxycycline.
[2019-10-30] MEDS: ATORVASTATIN CALCIUM 20 MG TABLET PO SCH (21:38)
[2019-10-31] MEDS: IPRATROPIUM BROMIDE 0.02% NEB 0.5 MG/2.5 ML AMPUL NEB SCH ×3 (02:13→14:16)
[2019-10-31] MEDS: LEVALBUTEROL HCL NEB 1.25 MG/3 ML AMPUL NEB SCH ×3 (02:13→14:16)
[2019-10-31] MEDS: HEPARIN SOD (PORCINE) 5,000 UNIT/ML 1 ML VIAL SUBCUT SCH ×2 (05:02→15:19)
[2019-10-31] MEDS: HUM INSULIN NPH/REG INSULIN HM 100 UNIT/1 ML 3 ML SUBCUT SCH (07:53)
[2019-10-31] MEDS: ACETAMINOPHEN 325 MG TABLET PO PRN (09:19)
[2019-10-31] MEDS: METFORMIN HCL 500 MG TABLET PO SCH (09:19)
[2019-10-31] MEDS: GUAIFENESIN 600 MG TABLET.SA PO SCH (09:19)
[2019-10-31] MEDS: DOXYCYCLINE HYCLATE 100 MG TABLET PO SCH (09:20)
[2019-10-31] MEDS: LOSARTAN POTASSIUM 50 MG TABLET PO SCH (09:20)
[2019-10-31] MEDS: PREDNISONE 20 MG TABLET PO SCH (09:20)
[2019-10-31] MEDS: FLUTICASONE NASAL SPRAY 50 MCG/SPRY 120 SPRAY/16 GM NASL SCH (09:20)
[2019-10-31] MEDS: ASPIRIN 81 MG TABLET, CHEWABLE PO SCH (09:20)
--- NOTE | 2019-10-31 14:43 | PDOC DISCHARGE SUMMARY ---
Impression - Admit/DC Date/PCP Admission Date/Primary Care Provider: 10/29/19 05:09 CATHERINE AVERY PA-C Discharge Date: 10/31/19 - Discharge Diagnosis (1) Asthmatic bronchitis with acute exacerbation Is this a current diagnosis for this admission?: Yes (2) Hyperglycemia due to type 2 diabetes mellitus Is this a current diagnosis for this admission?: Yes (3) Hypertension Is this a current diagnosis for this admission?: Yes (4) URI (upper respiratory infection) Is this a current diagnosis for this admission?: Yes - Additional Information Resuscitation Status: Full Code Referrals: CATHERINE AVERY PA-C [Primary Care Provider] - 11/03/19 1:45 pm Prescriptions: Fluticasone/Salmeterol [Advair 500-50 Diskus 14 Dose/Diskus] 1 inh IH Q12H 30 Days #1 inhaler Losartan Potassium [Cozaar 50 mg Tablet] 50 mg PO Q12 30 Days #60 tablet Prednisone [Deltasone 20 mg Tablet] 20 mg PO BID 3 Days #6 tablet Tiotropium [place] [Spiriva Respimat] 4 gm IH DAILY 30 Days #1 mist.inhal Doxycycline Hyclate [Vibramycin 100 mg Tablet] 100 mg PO Q12 5 Days #10 tablet Home Medications: Albuterol Sulfate [Ventolin 0.083% Neb 2.5 mg/3 mL Ampul] 1 vial NEB Q6HP PRN 10/29/19 Aspirin [Aspirin 81 mg Chewable Tablet] 81 mg PO DAILY 10/29/19 Codeine Phosphate/Guaifenesin [Codeine-Guaifen 10-100 mg/5 ml] 5 ml PO Q6HP PRN 10/29/19 Insulin Aspart Prot/Insuln Asp [Novolog Mix 70-30 Flexpen] 8 unit SQ QPM 10/29/19 Insulin Aspart Prot/Insuln Asp [Novolog Mix 70-30 Flexpen] 15 unit SQ QAM 10/29/19 Metformin HCl 500 mg PO BID 10/29/19 Doxycycline Hyclate [Vibramycin 100 mg Tablet] 100 mg PO Q12 5 Days #10 tablet 10/31/19 Fluticasone/Salmeterol [Advair 500-50 Diskus 14 Dose/Diskus] 1 inh IH Q12H 30 Days #1 inhaler 10/31/19 Losartan Potassium [Cozaar 50 mg Tablet] 50 mg PO Q12 30 Days #60 tablet 10/31/19 Prednisone [Deltasone 20 mg Tablet] 20 mg PO BID 3 Days #6 tablet 10/31/19 Tiotropium [place] [Spiriva Respimat] 4 gm IH DAILY 30 Days #1 mist.inhal 10/31/19 History of Present Illiness History of Present Illness: MIC DIAZ is a 64 year old male with a past medical history of diabetes, hypertension, dyslipidemia and coronary artery disease status post stenting. He presents with recurrent shortness of breath and nonproductive paroxysms of cough complaining of rhinorrhea and postnasal drip. He has been seen in the emergency department 5 times in the last month after relocating from [place]. He has been diagnosed several times with bronchitis and has short lived improvement requiring recurrent emergency department evaluations where he is found to have unremarkable chest x-ray and treated for acute bronchitis. Patient admits worsening of his symptoms as soon as prednisone is discontinued. His evaluation is notable for a CBC with eosinophilia. In the emergency department he seen received Solu-Medrol, albuterol and Atrovent and referred to the hospitalist for admission. He denies chest pain nausea vomiting diaphoresis. Hospital Course Hospital Course: (1) Asthmatic bronchitis with acute exacerbation History of intermittent asthma only on rescue inhaler. Was admitted to medical floor, started on p.o. steroids, empiric p.o. antibiotics, antitussives, supplemental oxygen. SPO2 WNL on RA at the time of discharge. No leukocytosis. Cultures negative. Influenza A/B. Discharge on doxycycline for another 5 days. P.o. steroids for another 3 days. Albuterol as needed and scheduled Spiriva and Advair. (2) Hyperglycemia due to type 2 diabetes mellitus Controlled. Hemoglobin A1c 8.6. Was started on diabetic diet, sliding scale, basal and prandial insulin. Accu- Chek and hypoglycemia protocol. Advised to restart home meds upon discharge. Outpatient PCP follow-up. (3) Hypertension Euvolemic. Normotensive. Lisinopril will switch to losartan given history of chronic persistent cough. Advised to follow-up with PCP. (4) URI (upper respiratory infection) As per #1. Physical Exam Vital Signs: Temp Pulse Resp BP Pulse Ox 97.6 F 82 16 142/93 H 100 10/31/19 11:22 10/31/19 11:22 10/31/19 11:22 10/31/19 11:22 10/31/19 14:00 Intake & Output 10/30/19 10/31/19 11/01/19 06:59 06:59 06:59 Intake Total 2440 1740 360 Balance 2440 1740 360 Weight 105.2 kg 105.4 kg General appearance: PRESENT: no acute distress, well-developed, well-nourished Head exam: PRESENT: atraumatic, normocephalic Respiratory exam: PRESENT: clear to auscultation [place]. ABSENT: rales, rhonchi, wheezes Cardiovascular exam: PRESENT: RRR. ABSENT: diastolic murmur, rubs, systolic murmur GI/Abdominal exam: PRESENT: normal bowel sounds, soft. ABSENT: distended, guarding, mass, organolmegaly, rebound, tenderness Neurological exam: PRESENT: alert, awake, oriented to person, oriented to place, oriented to time, oriented to situation, CN II-XII grossly intact. ABSENT: motor sensory deficit Results Laboratory Results: WBC 9.0 10^3/uL (4.0-10.5) 10/30/19 04:59 RBC 4.52 10^6/uL (4.35-5.55) 10/30/19 04:59 Hgb 11.9 g/dL (13.5-17.0) L 10/30/19 04:59 Hct 36.3 % (37.9-51.0) L 10/30/19 04:59 MCV 80 fl (80-97) 10/30/19 04:59 MCH 26.4 pg (27.0-33.4) L 10/30/19 04:59 MCHC 32.9 g/dL (32.0-36.0) 10/30/19 04:59 RDW 14.7 % (11.5-14.0) H 10/30/19 04:59 Plt Count 234 10^3/uL (150-450) 10/30/19 04:59 Lymph % (Auto) 18.3 % (13-45) 10/30/19 04:59 [place] % (Auto) 7.3 % (3-13) 10/30/19 04:59 Eos % (Auto) 0.5 % (0-6) 10/30/19 04:59 Baso % (Auto) 0.3 % (0-2) 10/30/19 04:59 Absolute Neuts (auto) 6.7 10^3/uL (1.7-8.2) 10/30/19 04:59 Absolute Lymphs (auto) 1.7 10^3/uL (0.5-4.7) 10/30/19 04:59 Absolute Monos (auto) 0.7 10^3/uL (0.1-1.4) 10/30/19 04:59 Absolute Eos (auto) 0.0 10^3/uL (0.0-0.6) 10/30/19 04:59 Absolute Basos (auto) 0.0 10^3/uL (0.0-0.2) 10/30/19 04:59 Seg Neutrophils % 73.6 % (42-78) 10/30/19 04:59 VBG pH 7.30 (7.30-7.42) 10/28/19 22:23 VBG pCO2 59.8 mmHg (35-63) 10/28/19 22:23 VBG HCO3 29.0 mmol/L (20-32) 10/28/19 22:23 VBG Base Excess 1.3 mmol/L 10/28/19 22:23 Sodium 139.0 mmol/L (137-145) 10/30/19 04:59 Potassium 4.9 mmol/L (3.6-5.0) 10/30/19 04:59 Chloride 103 mmol/L (98-107) 10/30/19 04:59 Carbon Dioxide 31 mmol/L (22-30) H 10/30/19 04:59 Anion Gap 5 (5-19) 10/30/19 04:59 BUN 15 mg/dL (7-20) 10/30/19 04:59 Creatinine 0.66 mg/dL (0.52-1.25) 10/30/19 04:59 Est GFR ( Amer) > 60 (>60) 10/30/19 04:59 Est GFR (MDRD) Non-Af > 60 (>60) 10/30/19 04:59 Glucose 154 mg/dL (75-110) H 10/30/19 04:59 POC Glucose 101 mg/dL (70-110) 10/31/19 11:23 Hemoglobin A1c % 8.6 % (4.7-6.0) H 10/30/19 17:39 Calcium 9.3 mg/dL (8.4-10.2) 10/30/19 04:59 Total Bilirubin 0.2 mg/dL (0.2-1.3) 10/28/19 22:23 Direct Bilirubin 0.1 mg/dL (0.0-0.4) 10/28/19 22:23 Neonat Total Bilirubin Not Reportable 10/28/19 22:23 Neonat Direct Bilirubin Not Reportable 10/28/19 22:23 Neonat Indirect Bili Not Reportable 10/28/19 22:23 AST 20 U/L (17-59) 10/28/19 22:23 ALT 20 U/L (<50) 10/28/19 22:23 Alkaline Phosphatase 84 U/L (38-126) 10/28/19 22:23 Troponin I < 0.012 ng/mL 10/28/19 22:23 NT-Pro-B Natriuret Pep 36 pg/mL (<125) 10/28/19 22:23 Total Protein 6.6 g/dL (6.3-8.2) 10/28/19 22:23 Albumin 3.8 g/dL (3.5-5.0) 10/28/19 22:23 Urine Color YELLOW 10/29/19 13:10 Urine Appearance CLEAR 10/29/19 13:10 Urine pH 6.0 (5.0-9.0) 10/29/19 13:10 Ur Specific [place] 1.017 10/29/19 13:10 Urine Protein NEGATIVE mg/dL (NEGATIVE) 10/29/19 13:10 Urine Glucose (UA) >=500 mg/dL (NEGATIVE) H 10/29/19 13:10 Urine Ketones TRACE mg/dL (NEGATIVE) H 10/29/19 13:10 Urine Blood NEGATIVE (NEGATIVE) 10/29/19 13:10 Urine Nitrite NEGATIVE (NEGATIVE) 10/29/19 13:10 Urine Bilirubin NEGATIVE (NEGATIVE) 10/29/19 13:10 Urine Urobilinogen NEGATIVE mg/dL (<2.0) 10/29/19 13:10 Ur Leukocyte Esterase NEGATIVE (NEGATIVE) 10/29/19 13:10 Urine RBC (Auto) 0 /HPF 10/29/19 13:10 Urine Mucus (Auto) RARE /LPF 10/29/19 13:10 Urine Ascorbic Acid NEGATIVE (NEGATIVE) 10/29/19 13:10 10/28/19 22:23 Troponin I < 0.012 NT-Pro-B Natriuret Pep 36 Impressions: Chest X-Ray 10/28/19 22:44 IMPRESSION: 1. No acute pulmonary findings. Stroke Is this a Stroke Patient?: No Acute Heart Failure - Is this a Heart Failure Patient?: No
[2019-10-31 15:33] VITALS: BP 145/86
== END 2019-10-31 15:45 | disposition home or self-care (01) ==
LOC: ER 22:28 → EH 10-29 05:09 → 4W 10-29 06:40
PROVIDERS: ADMIT Internal Medicine; ATTEND Internal Medicine
DX: J45.41 Moderate persistent asthma with (acute) exacerbation (principal); E11.65 Type 2 diabetes mellitus with hyperglycemia; I10 Essential (primary) hypertension; J06.9 Acute upper respiratory infection, unspecified; I25.10 Atherosclerotic heart disease of native coronary artery without angina pectoris; R09.02 Hypoxemia; I25.2 Old myocardial infarction; Z79.4 Long term (current) use of insulin; Z79.82 Long term (current) use of aspirin; Z95.5 Presence of coronary angioplasty implant and graft
CPT/HCPCS: 93005; 94640 ×5; 99285; 96372; 96365; 36415 ×2; 87040 ×2; 82962 ×3; 85025 ×2; 80048; 80053; 81001; 84484; 83036; 82803; 83880; 71045; 94799 ×2; 93010; G0378 ×4; A9270 ×29; J1644 ×2; J3475 ×2; J3490 ×8; J1815; J7512; J7620

== ENCOUNTER 2019-11-12 20:59 | Inpatient (IN) | payer MEDICARE ==
[2019-11-12 21:37] LABS: HEMATOCRIT 37.3 % (37.9-51.0); HEMOGLOBIN 12.1 g/dL (13.5-17.0); MEAN CORPUSCULAR HEMOGLOBIN 26.3 pg (27.0-33.4); MEAN CORPUSCULAR HGB CONC 32.3 g/dL (32.0-36.0); MEAN CORPUSCULAR VOLUME 82 fl (80-97); PLATELET COUNT 475 10^3/uL (150-450); RED BLOOD COUNT 4.58 10^6/uL (4.35-5.55); RED CELL DISTRIBUTION WIDTH 14.7 % (11.5-14.0); WHITE BLOOD COUNT 19.2 10^3/uL (4.0-10.5)
[2019-11-12 21:45] LABS: ALBUMIN 3.4 g/dL (3.5-5.0); ALKALINE PHOSPHATASE 208 U/L (38-126); ANION GAP 14 (5-19); ASPARTATE AMINO TRANSFERASE 40 U/L (17-59); BILIRUBIN,DIRECT 0.5 mg/dL (0.0-0.4); BILIRUBIN,TOTAL 0.5 mg/dL (0.2-1.3); BLOOD UREA NITROGEN 25 mg/dL (7-20); CARBON DIOXIDE 23 mmol/L (22-30); CHLORIDE 97 mmol/L (98-107); GLUCOSE 326 mg/dL (75-110); POTASSIUM 4.7 mmol/L (3.6-5.0); TOTAL PROTEIN 7.5 g/dL (6.3-8.2)
[2019-11-12 21:57] LABS: ABSOLUTE LYMPHOCYTES# (MANUAL) 1.3 10^3/uL (0.5-4.7); ABSOLUTE MONOCYTES # (MANUAL) 1.2 10^3/uL (0.1-1.4); BAND NEUTROPHILS % (MANUAL) 1 % (3-5); BASOPHILS % (MANUAL) 0 % (0-2); EOSINOPHILS % (MANUAL) 0 % (0-6); LYMPHOCYTES % (MANUAL) 7 % (13-45); MONOCYTES % (MANUAL) 6 % (3-13); SEGMENTED NEUTROPHILS % (MAN) 86 % (42-78); TOTAL CELLS COUNTED 100
[2019-11-12 21:58] LABS: ANISOCYTOSIS SLIGHT; PLATELET COMMENT INCREASED
[2019-11-12] MEDS ORDERED: NORMAL SALINE 1000 ML 1,000 ML IV ONE (22:49)
--- NOTE | 2019-11-12 22:56 | ER Document Report ---
ED General - General Chief Complaint: General Weakness Stated Complaint: WEAKNESS Time Seen by Provider: 11/12/19 21:34 Primary Care Provider: CATHERINE AVERY PA-C [Primary Care Provider] - Follow up as needed TRAVEL OUTSIDE OF THE [place] IN LAST 30 DAYS: No - HPI Notes: Mr. Alfonso is a 64-year-old male transported here via EMS for multiple concerns. This gentleman was discharged from the hospitalist service here 12 days ago after inpatient treatment for reactive airways disease. He was discharged on prednisone and has finished taking the steroid medication. He is diabetic and has not been well controlled. says his sugars have been in excess of 200 and he has had generalized weakness and has been falling. He also has complained of left flank discomfort is been seen by his family doctor and was told that he had blood in his urine. He was advised that he might have a kidney stone but no imaging was done. He continues to intermittently have discomfort in the left flank region radiating to the groin. He has had some nausea but no vomiting. No fever. When he fell several days ago he also injured his left wrist and he has swelling over the area of the distal radius. is concerned about possible fracture. - Related Data Allergies/Adverse Reactions: No Known Allergies Allergy (Verified 10/28/19 23:10) Past Medical History - General Information source: Patient, Relative - Social History Smoking Status: Never Smoker Frequency of alcohol use: None Drug Abuse: None Family History: DM Patient has suicidal ideation: No Patient has homicidal ideation: No - Past Medical History Cardiac Medical History: Reports: Hx Coronary Artery Disease, Hx Heart Attack, Hx Hypercholesterolemia, Hx Hypertension Pulmonary Medical History: Reports: Hx Bronchitis, Hx COPD Endocrine Medical History: Reports: Hx Diabetes Mellitus Type 2 Past Surgical History: Reports: Hx Cardiac Catheterization, Hx Cardiac Surgery - stent x 2, Hx Coronary Stent, Hx Nose Surgery - sinus sx x 2 - Immunizations Immunizations up to date: Yes Hx Diphtheria, Pertussis, Tetanus Vaccination: Yes Review of Systems - Review of Systems Notes: Constitutional: Negative for fever. HENT: Negative for sore throat. Eyes: Negative for visual changes. Cardiovascular: Negative for chest pain. Respiratory: Negative for shortness of breath. Gastrointestinal: As per HPI. Genitourinary: Negative for dysuria. Musculoskeletal: As per HPI. Skin: Negative for rash. Neurological: Negative for headaches, focal weakness or numbness. 10 point ROS negative except as marked above and in HPI. Physical Exam - Vital signs Vitals: Temp Resp BP Pulse Ox 98.4 F 18 144/91 H 99 11/12/19 21:23 11/12/19 21:23 11/12/19 21:23 11/12/19 21:23 - Notes Notes: GENERAL: Male patient appearing approximately stated age who exhibits generalized weakness. SKIN: Diminished skin turgor. No rashes. HEAD: Normocephalic atraumatic. EYES: PERRLA. EOMI. Conjunctivae and sclerae clear. EARS: CANALS AND TMS CLEAR. NOSE: CLEAR. MOUTH: Tacky oral mucosa. Good dentition. No stridor or edema. No drooling. NECK: Supple. No masses or thyromegaly. No adenopathy. Carotids 2+ without bruits. No JVD. BACK: Symmetrical without tenderness. CHEST: Respirations unlabored. Breath sounds clear and symmetrical. HEART: Regular rhythm. No murmur gallop or rub. ABDOMEN: Soft nontender without masses, organomegaly or rebound. Bowel sounds normally active. No bruits. GENITALIA: Deferred. EXTREMITIES: Soft tissue swelling and tenderness over the distal radius on the left. Trace bilateral pretibial edema. No calf tenderness. Cap refill less than 1.5 seconds. Dorsalis pedis and posterior tibial pulses 3+ and symmetrical. NEUROLOGICAL: GCS 14 patient is disoriented today and his responses are little slow. Moves all 4 extremities symmetrically with no focal motor deficit. No focal sensory deficit. Cerebellar testing is normal. PSYCHIATRIC: Appropriate affect. Course - Re-evaluation Re-evalutation: 11/12/19 22:57 Blood sugar is elevated in the 300s and patient looks dehydrated. His venous pH is 7.3 consistent with a very mild diabetic ketoacidosis. We are going to hydrate him with normal saline and then recheck his venous pH and chemistry profile. Urinalysis is pending. He has several other issues. He has mildly altered mental status and this could be due to metabolic disturbance but with recurrent falls I am going to scan his head to be sure he does not have a subdural. We will also get plain films of his left wrist and he is going to get a noncontrast CT abdomen pelvis because of his recent hematuria and left flank pain with concern about renal calculus. 11/13/19 03:[address] and abdomen suggested bilateral hydronephrosis and distention of the bladder. We checked a postvoid residual and this was close to thousand cc. We decompressed patient with a Diaz catheter. His urine clearly is infected. Was given IV antibiotics. His blood sugar still in the 200s. His venous pH is now 7.35. His lactate is normal. His LFTs were mildly elevated. We did a gallbladder ultrasound which was negative. Findings are discussed with the on-call hospitalist Dr. Brandt Kirby who will bring the patient in for observation. - Vital Signs Vital signs: Temp Pulse Resp BP Pulse Ox 98.4 F 18 164/92 H 97 11/12/19 21:23 11/13/19 03:00 11/12/19 22:01 11/12/19 22:11 - Laboratory Result Diagrams: 11/12/19 21:25 11/13/19 01:50 Laboratory results interpreted by me: 11/12/19 11/12/19 11/12/19 21:25 21:25 21:32 WBC 19.2 H Hgb 12.1 L Hct 37.3 L MCH 26.3 L RDW 14.7 H Plt Count 475 H Seg Neuts % (Manual) 86 H Band Neutrophils % 1 L Lymphocytes % (Manual) 7 L Abs Neuts (Manual) 16.7 H Sodium 134.4 L Chloride 97 L BUN 25 H Glucose 326 H POC Glucose 305 H Direct Bilirubin 0.5 H ALT 61 H Alkaline Phosphatase 208 H Albumin 3.4 L Urine Protein Urine Glucose (UA) Urine Blood Urine Urobilinogen Ur Leukocyte Esterase 11/12/19 11/13/19 23:48 01:50 WBC Hgb Hct MCH RDW Plt Count Seg Neuts % (Manual) Band Neutrophils % Lymphocytes % (Manual) Abs Neuts (Manual) Sodium 135.4 L Chloride BUN 24 H Glucose 290 H POC Glucose Direct Bilirubin ALT Alkaline Phosphatase Albumin Urine Protein 100 H Urine Glucose (UA) >=500 H Urine Blood LARGE H Urine Urobilinogen 4.0 H Ur Leukocyte Esterase LARGE H Discharge - Discharge Clinical Impression: Acute pyelonephritis, Bladder outlet obstruction, Dehydration Condition: Fair Disposition: ADMITTED OBSERVATION Admitting Provider: Mirta (Hospitalist) Unit Admitted: Medical Floor Referrals: CATHERINE AVERY PA-C [Primary Care Provider] - Follow up as needed
--- NOTE | 2019-11-12 23:36 | RADIOLOGY REPORT (SQ) ---
CLINICAL HISTORY: fall; injury COMPARISON: None. 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 Joint spaces are preserved. There is mild dorsal soft tissue swelling. IMPRESSION: No acute osseous findings.
--- NOTE | 2019-11-12 23:39 | RADIOLOGY REPORT (SQ) ---
CLINICAL HISTORY: Altered mental status COMPARISON: None. TECHNIQUE: CT HEAD WITHOUT IV CONTRAST on 11/12/2019 10:57 PM AIRCRAFT DESIGNER This exam was performed according to our departmental dose-optimization program, which includes automated exposure control, adjustment of the mA and/or kV according to patient size and/or use of iterative reconstruction technique. FINDINGS: There is no acute hemorrhage, mass effect or midline shift. Parada-white differentiation is preserved. There is no hydrocephalus. There is no significant volume loss for age. There are mild patchy hypodensities within the periventricular and subcortical white matter, consistent with microangiopathic ischemic changes. The calvarium is intact. Orbits and globes are unremarkable. There is extensive opacification of the ethmoid air cells, frontal sinuses and sphenoid sinuses. There is moderate thickening of the maxillary sinuses. There is suggestion of expansion within the sphenoid sinuses with thinning of the posterior sphenoid sinus wall. Mastoid air cells are clear. IMPRESSION: No acute intracranial findings. Possible expansile lesion in the sphenoid sinuses. Consider MRI.
--- NOTE | 2019-11-12 23:41 | RADIOLOGY REPORT (SQ) ---
CLINICAL HISTORY: hematuria and left flank pain COMPARISON: None. TECHNIQUE: CT ABDOMEN PELVIS WITHOUT IV CONTRAST on 11/12/2019 10:49 PM RENEWALS MANAGER This exam was performed according to our departmental dose-optimization program, which includes automated exposure control, adjustment of the mA and/or kV according to patient size and/or use of iterative reconstruction technique. FINDINGS: Lower lungs are clear. Abdomen: Liver is fatty in attenuation. There is no biliary dilatation. Gallbladder is normal in appearance. The pancreas and spleen are normal in appearance. Adrenal glands are normal. There is mild fullness of both renal collecting systems. Abdominal aorta is normal in course and caliber without aneurysm. There is no free air. There is no retroperitoneal adenopathy. Pelvis: There is large amount of stool throughout the colon. Urinary bladder is moderately distended. There is trace amount of free pelvic fluid. Appendix is not clearly seen. Skeleton: There are no acute osseous findings. No suspicious bony lesions. IMPRESSION: Distended urinary bladder with mild fullness of both renal collecting systems.
[2019-11-13 00:24] LABS: APPEARANCE,URINE CLOUDY; BILIRUBIN,URINE NEGATIVE (NEGATIVE); COLOR,URINE AMBER; GLUCOSE, URINE >=500 mg/dL (NEGATIVE); KETONES,URINE NEGATIVE (NEGATIVE); LEUKOCYTE ESTERASE,URINE LARGE (NEGATIVE); NITRITE,URINE NEGATIVE (NEGATIVE); PROTEIN,URINE 100 mg/dL (NEGATIVE); URINE SPECIFIC GRAVITY 1.013
[2019-11-13] MEDS ORDERED: CEFTRIAXONE INJ 1000 MG VIAL IV ONE (00:59)
[2019-11-13] MEDS ORDERED: NORMAL SALINE 500 ML IV ONE (01:06)
--- NOTE | 2019-11-13 01:46 | RADIOLOGY REPORT (SQ) ---
AP Portable chest: 11/13/2019 12:44 AM OPERATING ROOM ORDERLY History: 64-year old patient with sepsis. Comparison: Chest radiograph performed 10/28/2019. Findings: The cardiomediastinal silhouette is normal in size. No pneumothorax is seen. No acute airspace opacities are seen. No discrete pleural effusion is apparent. Impression: No acute airspace opacities are seen.
--- NOTE | 2019-11-13 02:14 | RADIOLOGY REPORT (SQ) ---
CLINICAL HISTORY: elevated WBC, Abnormal LFTs COMPARISON: None. TECHNIQUE: US ABDOMEN LIMITED 11/13/2019 1:08 AM DENTAL BILLING SPECIALIST FINDINGS: Liver is fatty in echotexture and is mildly enlarged. Portal vein is patent. Gallbladder is normally distended without wall thickening, gallstones or pericholecystic fluid. Common bile duct measures 3 mm. Right kidney measures 11.8 cm. There is minimal right hydronephrosis. IMPRESSION: Minimal right hydronephrosis.
[2019-11-13 02:26] LABS: VENOUS BLOOD BASE EXCESS -2.4 mmol/L; VENOUS BLOOD HCO3 22.5 mmol/L (20-32); VENOUS BLOOD PCO2 39.1 mmHg (35-63); VENOUS BLOOD PH 7.38 (7.30-7.42)
[2019-11-13 02:32] LABS: ANION GAP 11 (5-19); BLOOD UREA NITROGEN 24 mg/dL (7-20); CALCIUM 9.4 mg/dL (8.4-10.2); CARBON DIOXIDE 23 mmol/L (22-30); CHLORIDE 101 mmol/L (98-107); GLUCOSE 290 mg/dL (75-110)
[2019-11-13] MEDS ORDERED: MAGNESIUM HYDROXIDE SUSP 30 ML UDCUP PO PRN (04:15)
[2019-11-13] MEDS ORDERED: MAG HYDROX/AL HYDROX/SIMETH SUSP 30 ML UDCUP PO PRN (04:15)
[2019-11-13] MEDS ORDERED: TEMAZEPAM 15 MG CAPSULE PO PRN (04:15)
[2019-11-13] MEDS ORDERED: PROMETHAZINE HCL INJ 25 MG/1 ML VIAL IV PRN (04:15)
[2019-11-13] MEDS ORDERED: LORAZEPAM INJ 2 MG/1 ML VIAL IV PRN (04:24)
[2019-11-13] MEDS ORDERED: MORPHINE SULFATE 10 MG/ML INJ IV PRN ×3 (04:24)
[2019-11-13] MEDS ORDERED: GUAIFENESIN SYRP 200 MG/10 ML UDC PO PRN (04:24)
[2019-11-13] MEDS ORDERED: DEXTROSE 50%-WATER 25 GM/50 ML DISP.SYRIN IV PRN ×2 (04:27)
[2019-11-13] MEDS ORDERED: GLUCAGON,HUMAN RECOMB 1 MG INJ IM PRN (04:27)
[2019-11-13] MEDS ORDERED: DEXTROSE 40% GEL 15 GM TUBE PO PRN ×2 (04:27)
[2019-11-13] MEDS ORDERED: TAMSULOSIN HCL 0.4 MG CAP.SR.24H PO ONE ×2 (04:33→10:00)
[2019-11-13] MEDS ORDERED: MEROPENEM 1 GM VIAL IV SCH (06:00)
[2019-11-13] MEDS: HEPARIN SOD (PORCINE) 5,000 UNIT/ML 1 ML VIAL SUBCUT SCH ×3 (06:19→21:26)
[2019-11-13] MEDS: RINGERS SOLUTION,LACTATED 1,000 ML IV PRN ×2 (06:20→12:25)
[2019-11-13] MEDS: INSULIN REG, HUMAN 100 UNIT/ML 3 ML VIAL (PYX) SUBCUT SCH ×4 (08:10→21:26)
[2019-11-13] MEDS: LEVALBUTEROL HCL NEB 1.25 MG/3 ML AMPUL NEB SCH ×2 (08:41→15:50)
[2019-11-13] MEDS: IPRATROPIUM BROMIDE 0.02% NEB 0.5 MG/2.5 ML AMPUL NEB SCH ×2 (08:41→15:50)
[2019-11-13] MEDS: MEROPENEM 1 GM in NORMAL SALINE 50 ML IV SCH ×2 (09:35→17:39)
[2019-11-13] MEDS: DOCUSATE SODIUM 100 MG CAPSULE PO SCH ×2 (09:36→17:39)
[2019-11-13] MEDS: FAMOTIDINE 20 MG TABLET PO SCH ×2 (09:36→21:26)
[2019-11-13] MEDS: ACETAMINOPHEN 325 MG TABLET PO PRN (09:41)
--- NOTE | 2019-11-13 10:32 | PDOC H&P ---
History of Present Illness Admission Date/PCP: 11/13/19 03:38 CATHERINE AVERY PA-C Patient complains of: Generalized weakness History of Present Illness: MIC DIAZ is a 64 year old male who presented the emergency room with a 2- week history of generalized weakness. Patient has experienced generalized weakness since his recent hospitalization 2 weeks ago. His weakness has been accompanied by lethargy, intermittent nausea, left flank discomfort which radiated into the left groin/lower abdomen and associated with difficulty with ambulation resulting in a fall and several near falls. He was weak at the time of discharge and did not improve as his blood sugar stayed elevated due to the course of prednisone he was taking and is continued to have difficulty with controlling his blood sugar. He has seen his primary care physician on 2 occasions for his ongoing symptoms but was told that he may have a kidney stone and sent home. He has not identified any additional associated or accompanying signs and symptoms. He denies prior similar symptoms. He has not identified any aggravating or ameliorating factors for his generalized weakness. In the emergency room he was found to have a leukocytosis as well as pyuria and acute urinary retention resolved by Diaz catheter. His blood sugar was noted to be significantly elevated and his renal functions though still within the normal range were double their previous values. Patient was subsequently admitted to the hospital for further evaluation and treatment on observation status. Past Medical History Cardiac Medical History: Reports: Coronary Artery Disease, Myocardial Infarction, Hyperlipidema, Hypertension Denies: Atrial Fibrillation, Congestive Heart Failure Pulmonary Medical History: Reports: Asthma, Bronchitis EENT Medical History: Denies: Cataracts, Ears - Hearing aids Neurological Medical History: Denies: Hemorrhagic CVA, Ischemic CVA, Seizures Endocrine Medical History: Reports: Diabetes Mellitus Type 2 Denies: Diabetes Mellitus Type 1, Hyperthyroidism, Hypothyroidism Renal/ Medical History: Denies: Chronic Kidney Disease, Nephrolithiasis Malignancy Medical History: Reports: None GI Medical History: Denies: Cirrhosis, Crohn's Disease, Hepatitis, Peptic Ulcer Disease, Ulcerat chivo Colitis Musculoskeltal Medical History: Denies: Arthritis, Gout Skin Medical History: Denies: Eczema, Psoriasis Psychiatric Medical History: Denies: Alcohol Dependency, Substance Abuse, Tobacco Dependency Traumatic Medical History: Reports: None Hematology: Denies: Anemia, Bleeding Tendencies Infectious Medical History: Reports: None Past Surgical History Past Surgical History: Reports: Cardiac Catheterization, Coronary Stent Social History Information Source: Patient Lives with: Spouse/Significant other Smoking Status: Never Smoker Electronic Cigarette use?: No Frequency of Alcohol Use: None Hx Recreational Drug Use: No Drugs: None Hx Prescription Drug Abuse: No - Advance Directive Resuscitation Status: Full Code Surrogate healthcare decision maker:: Rossy Morena Family History Family History: CAD, DM, Hypertension. denies: Malignancy Parental Family History Reviewed: Yes Children Family History Reviewed: No Sibling(s) Family History Reviewed.: Yes Medication/Allergy Home Medications: Albuterol Sulfate [Ventolin 0.083% Neb 2.5 mg/3 mL Ampul] 1 vial NEB Q6HP PRN 10/29/19 Aspirin [Aspirin 81 mg Chewable Tablet] 81 mg PO DAILY 10/29/19 Codeine Phosphate/Guaifenesin [Codeine-Guaifen 10-100 mg/5 ml] 5 ml PO Q6HP PRN 10/29/19 Insulin Aspart Prot/Insuln Asp [Novolog Mix 70-30 Flexpen] 8 unit SQ QPM 10/29/19 Insulin Aspart Prot/Insuln Asp [Novolog Mix 70-30 Flexpen] 15 unit SQ QAM 10/29/19 Metformin HCl 500 mg PO BID 10/29/19 Doxycycline Hyclate [Vibramycin 100 mg Tablet] 100 mg PO Q12 5 Days #10 tablet 10/31/19 Fluticasone/Salmeterol [Advair 500-50 Diskus 14 Dose/Diskus] 1 inh IH Q12H 30 Days #1 inhaler 10/31/19 Losartan Potassium [Cozaar 50 mg Tablet] 50 mg PO Q12 30 Days #60 tablet 10/31/19 Prednisone [Deltasone 20 mg Tablet] 20 mg PO BID 3 Days #6 tablet 10/31/19 Tiotropium [place] [Spiriva Respimat] 4 gm IH DAILY 30 Days #1 mist.inhal 10/31/19 Allergies/Adverse Reactions: No Known Allergies Allergy (Verified 10/28/19 23:10) Review of Systems Constitutional: PRESENT: as per HPI, weakness. ABSENT: chills, fever(s) Eyes: ABSENT: visual disturbances, other - Eye pain Ears: ABSENT: hearing changes, other - Ear pain Nose, Mouth, and Throat: ABSENT: headache(s), mouth pain, sore throat Cardiovascular: ABSENT: chest pain, palpitations Respiratory: ABSENT: cough, dyspnea Gastrointestinal: PRESENT: as per HPI, abdominal pain - Right flank pain radiating to lower abdomen/groin, nausea. ABSENT: constipation, diarrhea, vomiting Genitourinary: ABSENT: dysuria, hematuria Musculoskeletal: ABSENT: back pain, joint swelling Integumentary: ABSENT: pruritus, rash Neurological: PRESENT: frequent falls. ABSENT: confusion, convulsions, focal weakness, memory loss, syncope Psychiatric: ABSENT: anxiety, depression Endocrine: ABSENT: cold intolerance, heat intolerance Hematologic/Lymphatic: ABSENT: easy bleeding, easy bruising Allergic/Immunologic: ABSENT: seasonal rhinorrhea Physical Exam Vital Signs: Temp Pulse Resp BP Pulse Ox 98.4 F 18 164/92 H 97 11/12/19 21:23 11/13/19 03:00 11/12/19 22:01 11/12/19 22:11 Intake & Output 11/11/19 11/12/19 11/13/19 23:59 23:59 23:59 Intake Total 1000 500 Balance 1000 500 Weight 90.718 kg General appearance: PRESENT: no acute distress, cooperative Head exam: PRESENT: atraumatic, normocephalic Eye exam: PRESENT: conjunctiva pink. ABSENT: conjunctival injection, scleral icterus Ear exam: PRESENT: normal external ear exam. ABSENT: bleeding, drainage Mouth exam: PRESENT: dry mucosa, neck supple Neck exam: ABSENT: thyromegaly, tracheal deviation Respiratory exam: PRESENT: clear to auscultation roma, symmetrical, unlabored Cardiovascular exam: PRESENT: RRR. ABSENT: clicks, gallop, rubs Pulses: PRESENT: normal radial pulses, normal dorsalis pedis pul GI/Abdominal exam: PRESENT: normal bowel sounds, soft. ABSENT: tenderness Rectal exam: PRESENT: deferred Extremities exam: ABSENT: joint swelling, pedal edema Musculoskeletal exam: ABSENT: deformity, dislocation Neurological exam: PRESENT: alert, oriented to person, oriented to place, oriented to time, oriented to situation, CN II-XII grossly intact. ABSENT: motor sensory deficit Psychiatric exam: PRESENT: appropriate affect, normal mood Skin exam: PRESENT: dry, intact, warm. ABSENT: jaundice, rash, urticaria Results Laboratory Results: 11/12/19 21:25 11/13/19 01:50 11/12/19 11/12/19 11/12/19 21:25 21:25 23:48 WBC 19.2 H RBC 4.58 Hgb 12.1 L Hct 37.3 L MCV 82 MCH 26.3 L MCHC 32.3 RDW 14.7 H Plt Count 475 H Seg Neutrophils % Not Reportable VBG pH VBG pCO2 VBG HCO3 VBG Base Excess Sodium 134.4 L Potassium 4.7 Chloride 97 L Carbon Dioxide 23 Anion Gap 14 BUN 25 H Creatinine 1.12 Est GFR ( Amer) > 60 Glucose 326 H Lactic Acid Calcium 10.0 Total Bilirubin 0.5 AST 40 Alkaline Phosphatase 208 H Total Protein 7.5 Albumin 3.4 L Urine Color ANGELA Urine Appearance CLOUDY Urine pH 7.0 Ur Specific [place] 1.013 Urine Protein 100 H Urine Glucose (UA) >=500 H Urine Ketones NEGATIVE Urine Blood LARGE H Urine Nitrite NEGATIVE Ur Leukocyte Esterase LARGE H Urine WBC (Auto) >182 Urine RBC (Auto) >182 11/13/19 11/13/19 11/13/19 01:50 01:50 02:16 WBC RBC Hgb Hct MCV MCH MCHC RDW Plt Count Seg Neutrophils % VBG pH 7.38 VBG pCO2 39.1 VBG HCO3 22.5 VBG Base Excess -2.4 Sodium 135.4 L Potassium 5.0 Chloride 101 Carbon Dioxide 23 Anion Gap 11 BUN 24 H Creatinine 1.10 Est GFR ( Amer) > 60 Glucose 290 H Lactic Acid 1.3 Calcium 9.4 Total Bilirubin AST Alkaline Phosphatase Total Protein Albumin Urine Color Urine Appearance Urine pH Ur Specific [place] Urine Protein Urine Glucose (UA) Urine Ketones Urine Blood Urine Nitrite Ur Leukocyte Esterase Urine WBC (Auto) Urine RBC (Auto) Impressions: Wrist X-Ray 11/12/19 22:48 IMPRESSION: No acute osseous findings. Abdomen/Pelvis CT 11/12/19 22:49 IMPRESSION: Distended urinary bladder with mild fullness of both renal collecting systems. Head CT 11/12/19 22:57 IMPRESSION: No acute intracranial findings. Possible expansile lesion in the sphenoid sinuses. Consider MRI. Abdomen Ultrasound 11/13/19 01:08 IMPRESSION: Minimal right hydronephrosis. Assessment and Plan - Diagnosis (1) Acute metabolic encephalopathy Is this a current diagnosis for this admission?: Yes (2) Bladder outlet obstruction Is this a current diagnosis for this admission?: Yes (3) UTI (urinary tract infection) Qualifiers: Urinary tract infection type: site unspecified Hematuria presence: with hematuria Qualified Code(s): N39.0 - Urinary tract infection, site not specified; R31.9 - Hematuria, unspecified Is this a current diagnosis for this admission?: Yes (4) Leukocytosis Qualifiers: Leukocytosis type: unspecified Qualified Code(s): D72.829 - Elevated white blood cell count, unspecified Is this a current diagnosis for this admission?: Yes (5) Diabetes mellitus type 2 in nonobese Is this a current diagnosis for this admission?: Yes (6) Hypertension Qualifiers: Hypertension type: essential hypertension Qualified Code(s): I10 - E ssential (primary) hypertension Is this a current diagnosis for this admission?: Yes (7) Coronary artery disease Qualifiers: Coronary Disease-Associated Artery/Lesion type: [place] artery [place] vs. transplanted heart: [place] heart Associated angina: without angina Qualified Code(s): I25.10 - Atherosclerotic heart disease of [place] coronary artery without angina pectoris Is this a current diagnosis for this admission?: Yes - Plan Summary Summary: The patient will be admitted to the medical floor on observation bed assignment where he will receive routine supportive and symptomatic cares. A Diaz catheter was placed in the bladder in the emergency room and will be maintained throughout the patient's hospital stay until he can be seen in follow-up by urology. Patient will be started on tamsulosin 0.4 mg p.o. daily. His urinary tract infection will be treated withIV meropenem pending blood and urine culture results. Will be treated with IV fluids utilizing lactated Ringer's at 167 mL an hour x12 hours. Serial lactic acids will be obtained. CBCs, metabolic profiles and magnesium levels will be obtained as appropriate. Before meals and at bedtime Accu-Cheks will be obtained and hyperglycemia will be treated with sliding scale insulin while hypoglycemia will be treated with a hypoglycemic protocol. He will use morphine sulfate 2 to 4 mg IV every 2 hours on an as-needed basis for pain control. He will use Ativan 1 mg IV every 4 hours as needed for anxiety or agitation. He will be continued on his usual home medications as appropriate once his medication list has been verified and reconciled. - Time Time Spent with patient: 15-24 minutes Medications reviewed and adjusted accordingly: Yes Anticipated discharge: Home - Inpatient Certification Based on my medical assessment, after consideration of the patient's comorbidities, presenting symptoms, or acuity I expect that the services needed warrant INPATIENT care.: No I certify that my determination is in accordance with my understanding of Medicare's requirements for reasonable and necessary INPATIENT services [42 CFR 412.3e].: No Medical Necessity: Need Close Monitoring Due to Risk of Patient Decompensation, Need For IV Fluids, Need for IV Antibiotics
--- NOTE | 2019-11-13 12:44 | Progress Note ---
Provider Note Provider Note: 11/13/2019 Patient seen briefly today as he was admitted after midnight last night. Patient was admitted for generalized weakness of at least 2 weeks duration. Patient also complained of several near falls. In the emergency room last night he was found to have elevated white count as well as acute urinary retention and pyuria. She is to be admitted to the hospital observation status for the above problems as well as her diabetes, hypertension, UTI Urine does show protein 100 glucose greater than 500 large amount of blood and large amount leukocytes negative nitrates unfortunately no urine culture was set up therefore I am ordering that today CT of the abdomen and pelvis without IV contrast last night showed distended urinary bladder with mild fullness of both renal collecting systems Patient was placed on meropenem every 8 hours
[2019-11-13 13:11] LABS: ANION GAP 11 (5-19); BLOOD UREA NITROGEN 20 mg/dL (7-20); CALCIUM 9.9 mg/dL (8.4-10.2); CARBON DIOXIDE 24 mmol/L (22-30); CHLORIDE 104 mmol/L (98-107); GLUCOSE 286 mg/dL (75-110); POTASSIUM 4.7 mmol/L (3.6-5.0)
[2019-11-13 13:13] LABS: HEMATOCRIT 34.1 % (37.9-51.0); MEAN CORPUSCULAR HEMOGLOBIN 26.2 pg (27.0-33.4); MEAN CORPUSCULAR HGB CONC 32.4 g/dL (32.0-36.0); MEAN CORPUSCULAR VOLUME 81 fl (80-97); PLATELET COUNT 441 10^3/uL (150-450); RED BLOOD COUNT 4.22 10^6/uL (4.35-5.55); RED CELL DISTRIBUTION WIDTH 14.5 % (11.5-14.0); WHITE BLOOD COUNT 18.4 10^3/uL (4.0-10.5)
[2019-11-13 13:48] LABS: ABSOLUTE LYMPHOCYTES# (MANUAL) 0.6 10^3/uL (0.5-4.7); ABSOLUTE MONOCYTES # (MANUAL) 0.4 10^3/uL (0.1-1.4); ANISOCYTOSIS SLIGHT; BASOPHILS % (MANUAL) 0 % (0-2); EOSINOPHILS % (MANUAL) 0 % (0-6); LYMPHOCYTES % (MANUAL) 3 % (13-45); MONOCYTES % (MANUAL) 2 % (3-13); SEGMENTED NEUTROPHILS % (MAN) 95 % (42-78); TOTAL CELLS COUNTED 100
[2019-11-13 13:49] LABS: PLATELET CLUMPS PRESENT; PLATELET COMMENT ADEQUATE; PLATELET LARGE PRESENT
[2019-11-13] MEDS: TAMSULOSIN HCL 0.4 MG CAP.SR.24H PO SCH (17:32)
[2019-11-14] MEDS: ACETAMINOPHEN 325 MG TABLET PO PRN ×2 (00:23→11:14)
[2019-11-14] MEDS: IPRATROPIUM BROMIDE 0.02% NEB 0.5 MG/2.5 ML AMPUL NEB SCH ×3 (00:43→16:09)
[2019-11-14] MEDS: LEVALBUTEROL HCL NEB 1.25 MG/3 ML AMPUL NEB SCH ×3 (00:43→16:09)
[2019-11-14] MEDS: MEROPENEM 1 GM in NORMAL SALINE 50 ML IV SCH ×3 (01:56→17:18)
[2019-11-14 05:38] LABS: MEAN CORPUSCULAR HEMOGLOBIN 26.1 pg (27.0-33.4); MEAN CORPUSCULAR HGB CONC 32.4 g/dL (32.0-36.0); MEAN CORPUSCULAR VOLUME 81 fl (80-97); PLATELET COUNT 426 10^3/uL (150-450); RED BLOOD COUNT 3.85 10^6/uL (4.35-5.55); RED CELL DISTRIBUTION WIDTH 14.5 % (11.5-14.0); WHITE BLOOD COUNT 15.1 10^3/uL (4.0-10.5)
[2019-11-14] MEDS: HEPARIN SOD (PORCINE) 5,000 UNIT/ML 1 ML VIAL SUBCUT SCH ×3 (06:02→22:09)
[2019-11-14 06:04] LABS: ANION GAP 7 (5-19); BLOOD UREA NITROGEN 15 mg/dL (7-20); CALCIUM 9.6 mg/dL (8.4-10.2); CARBON DIOXIDE 26 mmol/L (22-30); CHLORIDE 103 mmol/L (98-107); GLUCOSE 173 mg/dL (75-110); POTASSIUM 4.5 mmol/L (3.6-5.0)
[2019-11-14] MEDS: INSULIN REG, HUMAN 100 UNIT/ML 3 ML VIAL (PYX) SUBCUT SCH ×4 (08:56→22:08)
[2019-11-14] MEDS: FAMOTIDINE 20 MG TABLET PO SCH ×2 (10:09→22:09)
[2019-11-14] MEDS: DOCUSATE SODIUM 100 MG CAPSULE PO SCH ×2 (10:09→17:15)
[2019-11-14] MEDS ORDERED: DEXTROSE 40% GEL 15 GM TUBE PO PRN ×2 (12:17)
[2019-11-14] MEDS ORDERED: DEXTROSE 50%-WATER 25 GM/50 ML DISP.SYRIN IV PRN ×2 (12:17)
[2019-11-14] MEDS ORDERED: GLUCAGON,HUMAN RECOMB 1 MG INJ IM PRN (12:17)
--- NOTE | 2019-11-14 12:30 | PDOC PROGRESS REPORT ---
Subjective Progress Note for:: 11/14/19 Reason For Visit: ACUTE URINARY RETENTION,URINARY TRACT INFECTION, 11/14/2019 Generalized weakness, possible UTI, urinary retention, uncontrolled diabetes Physical Exam Vital Signs: Temp Pulse Resp BP Pulse Ox 98.3 F 94 16 139/76 H 98 11/14/19 07:45 11/14/19 08:55 11/14/19 08:55 11/14/19 07:45 11/14/19 08:55 Intake & Output 11/13/19 11/14/19 11/15/19 06:59 06:59 06:59 Intake Total 1500 3600 50 Output Total 550 1850 Balance 950 1750 50 Weight 102.6 kg 104.8 kg General appearance: PRESENT: no acute distress, other - Sitting up in bed doing a nebulizer treatment Respiratory exam: PRESENT: clear to auscultation roma. ABSENT: rales, rhonchi, wheezes Cardiovascular exam: PRESENT: RRR. ABSENT: diastolic murmur, rubs, systolic murmur Neurological exam: PRESENT: alert, awake, oriented to person, oriented to place, oriented to time, oriented to situation, CN II-XII grossly intact. ABSENT: motor sensory deficit Psychiatric exam: PRESENT: appropriate affect, normal mood. ABSENT: homicidal ideation, suicidal ideation Results Laboratory Results: 11/14/19 05:08 11/14/19 05:08 11/13/19 11/13/19 11/13/19 08:55 08:55 12:49 WBC 18.4 H RBC 4.22 L Hgb 11.0 L Hct 34.1 L MCV 81 MCH 26.2 L MCHC 32.4 RDW 14.5 H Plt Count 441 Seg Neutrophils % Not Reportable Sodium 138.5 Potassium 4.7 Chloride 104 Carbon Dioxide 24 Anion Gap 11 BUN 20 Creatinine 0.84 Est GFR ( Amer) > 60 Glucose 286 H Lactic Acid 1.0 Calcium 9.9 Magnesium 11/14/19 11/14/19 05:08 05:08 WBC 15.1 H RBC 3.85 L Hgb 10.0 L Hct 31.0 L MCV 81 MCH 26.1 L MCHC 32.4 RDW 14.5 H Plt Count 426 Seg Neutrophils % Sodium 136.3 L Potassium 4.5 Chloride 103 Carbon Dioxide 26 Anion Gap 7 BUN 15 Creatinine 0.58 Est GFR ( Amer) > 60 Glucose 173 H Lactic Acid Calcium 9.6 Magnesium 1.9 11/13/19 03:00 Blood Blood Culture (PCR) - Final Staphylococcus Aureus 11/13/19 01:50 Blood Blood Culture (PCR) - Final Staphylococcus Aureus Impressions: Wrist X-Ray 11/12/19 22:48 IMPRESSION: No acute osseous findings. Abdomen/Pelvis CT 11/12/19 22:49 IMPRESSION: Distended urinary bladder with mild fullness of both renal collecting systems. Head CT 11/12/19 22:57 IMPRESSION: No acute intracranial findings. Possible expansile lesion in the sphenoid sinuses. Consider MRI. Abdomen Ultrasound 11/13/19 01:08 IMPRESSION: Minimal right hydronephrosis. Assessment and Plan - Diagnosis (1) Bladder outlet obstruction Is this a current diagnosis for this admission?: Yes (3) Diabetes mellitus type 2 in nonobese Is this a current diagnosis for this admission?: Yes (4) Leukocytosis Qualifiers: Leukocytosis type: unspecified Qualified Code(s): D72.829 - Elevated white blood cell count, unspecified Is this a current diagnosis for this admission?: Yes (5) UTI (urinary tract infection) Qualifiers: Urinary tract infection type: site unspecified Hematuria presence: with hematuria Qualified Code(s): N39.0 - Urinary tract infection, site not specified; R31.9 - Hematuria, unspecified Is this a current diagnosis for this admission?: Yes (6) Coronary artery disease Qualifiers: Coronary Disease-Associated Artery/Lesion type: [place] artery [place] vs. transplanted heart: [place] heart Associated angina: without angina Qualified Code(s): I25.10 - Atherosclerotic heart disease of [place] coronary artery without angina pectoris Is this a current diagnosis for this admission?: Yes (7) Hypertension Qualifiers: Hypertension type: essential hypertension Qualified Code(s): I10 - Essential (primary) hypertension Is this a current diagnosis for this admission?: Yes - Plan Summary Summary: The patient will be admitted to the medical floor on observation bed assignment where he will receive routine supportive and symptomatic cares. A Diaz catheter was placed in the bladder in the emergency room and will be maintained throughout the patient's hospital stay until he can be seen in follow-up by urology. Patient will be started on tamsulosin 0.4 mg p.o. daily. His urinary tract infection will be treated withIV meropenem pending blood and urine culture results. Will be treated with IV fluids utilizing lactated Ringer's at 167 mL an hour x12 hours. Serial lactic acids will be obtained. CBCs, metabolic profiles and magnesium levels will be obtained as appropriate. Before meals and at bedtime Accu-Cheks will be obtained and hyperglycemia will be treated with sliding scale insulin while hypoglycemia will be treated with a hypoglycemic protocol. He will use morphine sulfate 2 to 4 mg IV every 2 hours on an as-needed basis for pain control. He will use Ativan 1 mg IV every 4 hours as needed for anxiety or agitation. He will be continued on his usual h ome medications as appropriate once his medication list has been verified and reconciled. 11/14/2019 Patient was admitted yesterday after midnight for generalized weakness and near falls. Patient also had what appeared to be uncontrolled diabetes as well as UTI and urinary retention Today his vital signs are stable his temperature is 98.3 pulse 94 blood pressure 139/76, O2 sat 98% on room air Patient is growing out MRSA in 2 blood cultures. Urine culture actually shows no growth in 1 day. Admission urinalysis showed a large amount of leukocytes but negative nitrates Finger stick glucose levels are from 173-326 and serum glucose levels run from 143-305 Patient was put back on his home medications CBC shows a white count on admission 19,000 and is now down to 15,000, electrolytes are normal Admission ultrasound of the pelvis showed minimal right hydronephrosis We will continue the IV meropenem pending sensitivities Clinically patient appears much improved and states he feels better - Time Time Spent with patient: 35 or more minutes
[2019-11-14] MEDS ORDERED: CYCLOBENZAPRINE HCL 10 MG TABLET PO SCH (14:00)
[2019-11-14] MEDS ORDERED: CYCLOBENZAPRINE HCL 10 MG TABLET PO PRN (14:00)
[2019-11-14] MEDS: LISINOPRIL 10 MG TABLET PO SCH (15:17)
[2019-11-14] MEDS: UMECLIDINIUM BROMIDE 62.5 MCG/DOSE IH SCH (17:10)
[2019-11-14] MEDS: METFORMIN HCL 500 MG TABLET PO SCH (17:15)
[2019-11-14] MEDS: HUM INSULIN NPH/REG INSULIN HM 100 UNIT/1 ML 3 ML SUBCUT SCH (17:15)
[2019-11-14] MEDS: TAMSULOSIN HCL 0.4 MG CAP.SR.24H PO SCH (17:15)
[2019-11-14] MEDS ORDERED: TRAMADOL HCL 50 MG TABLET PO SCH (18:00)
[2019-11-14] MEDS ORDERED: TRAMADOL HCL 50 MG TABLET PO PRN (18:00)
[2019-11-14 19:27] LABS: INTERNATIONAL RATION (INR) 0.98
[2019-11-14] MEDS: LOSARTAN POTASSIUM 50 MG TABLET PO SCH (22:08)
[2019-11-15] MEDS: IPRATROPIUM BROMIDE 0.02% NEB 0.5 MG/2.5 ML AMPUL NEB SCH ×3 (00:32→16:10)
[2019-11-15] MEDS: LEVALBUTEROL HCL NEB 1.25 MG/3 ML AMPUL NEB SCH ×3 (00:32→16:10)
[2019-11-15] MEDS: ACETAMINOPHEN 325 MG TABLET PO PRN ×3 (02:11→20:11)
[2019-11-15] MEDS: MEROPENEM 1 GM in NORMAL SALINE 50 ML IV SCH ×3 (02:28→18:02)
[2019-11-15] MEDS: HEPARIN SOD (PORCINE) 5,000 UNIT/ML 1 ML VIAL SUBCUT SCH ×3 (05:47→21:44)
[2019-11-15] MEDS: HUM INSULIN NPH/REG INSULIN HM 100 UNIT/1 ML 3 ML SUBCUT SCH ×2 (08:03→17:25)
[2019-11-15] MEDS: INSULIN REG, HUMAN 100 UNIT/ML 3 ML VIAL (PYX) SUBCUT SCH ×4 (08:03→21:45)
[2019-11-15] MEDS ORDERED: (PENDING PHARMACY ID) (Lisinopril [Zestril] 40 MG) PO SCH (10:00)
[2019-11-15] MEDS ORDERED: TAMSULOSIN HCL 0.4 MG CAP.SR.24H PO SCH (10:00)
[2019-11-15] MEDS ORDERED: (PENDING PHARMACY ID) (Tiotropium Bromide [Spiriva Respimat] 1 PUFF) IH SCH (10:00)
[2019-11-15] MEDS: METFORMIN HCL 500 MG TABLET PO SCH ×2 (10:07→17:25)
[2019-11-15] MEDS: FAMOTIDINE 20 MG TABLET PO SCH ×2 (10:07→21:44)
[2019-11-15] MEDS: LOSARTAN POTASSIUM 50 MG TABLET PO SCH ×2 (10:07→21:44)
[2019-11-15] MEDS: LISINOPRIL 10 MG TABLET PO SCH (10:07)
[2019-11-15] MEDS: DOCUSATE SODIUM 100 MG CAPSULE PO SCH ×2 (10:07→17:25)
[2019-11-15] MEDS: UMECLIDINIUM BROMIDE 62.5 MCG/DOSE IH SCH (10:08)
--- NOTE | 2019-11-15 13:10 | PDOC PROGRESS REPORT ---
Subjective Progress Note for:: 11/15/19 Reason For Visit: ACUTE URINARY RETENTION,URINARY TRACT INFECTION, 11/15/2019 Acute urinary retention UTI, uncontrolled diabetes, weakness Physical Exam Vital Signs: Temp Pulse Resp BP Pulse Ox 98.1 F 104 H 16 124/84 94 11/15/19 06:49 11/15/19 08:45 11/15/19 08:45 11/15/19 06:49 11/15/19 08:45 Intake & Output 11/14/19 11/15/19 11/16/19 06:59 06:59 06:59 Intake Total 3600 1475 50 Output Total 1850 2400 Balance 1750 -925 50 Weight 104.8 kg 101.8 kg General appearance: PRESENT: no acute distress, other - Talkative only complaint is of mid back pain, he says from lying in the hospital bed Respiratory exam: PRESENT: clear to auscultation roma. ABSENT: rales, rhonchi, wheezes Cardiovascular exam: PRESENT: RRR. ABSENT: diastolic murmur, rubs, systolic murmur GI/Abdominal exam: PRESENT: soft, other - No tenderness Neurological exam: PRESENT: alert, awake, oriented to person, oriented to place, oriented to time, oriented to situation, CN II-XII grossly intact. ABSENT: motor sensory deficit Psychiatric exam: PRESENT: appropriate affect, normal mood. ABSENT: homicidal ideation, suicidal ideation Results Laboratory Results: 11/14/19 05:08 11/14/19 05:08 Impressions: Wrist X-Ray 11/12/19 22:48 IMPRESSION: No acute osseous findings. Abdomen/Pelvis CT 11/12/19 22:49 IMPRESSION: Distended urinary bladder with mild fullness of both renal collecting systems. Head CT 11/12/19 22:57 IMPRESSION: No acute intracranial findings. Possible expansile lesion in the sphenoid sinuses. Consider MRI. Abdomen Ultrasound 11/13/19 01:08 IMPRESSION: Minimal right hydronephrosis. Assessment and Plan - Diagnosis (1) Bladder outlet obstruction Is this a current diagnosis for this admission?: Yes (3) Diabetes mellitus type 2 in nonobese Is this a current diagnosis for this admission?: Yes (4) Leukocytosis Qualifiers: Leukocytosis type: unspecified Qualified Code(s): D72.829 - Elevated white blood cell count, unspecified Is this a current diagnosis for this admission?: Yes (5) UTI (urinary tract infection) Qualifiers: Urinary tract infection type: site unspecified Hematuria presence: with hematuria Qualified Code(s): N39.0 - Urinary tract infection, site not specified; R31.9 - Hematuria, unspecified Is this a current diagnosis for this admission?: Yes (6) Coronary artery disease Qualifiers: Coronary Disease-Associated Artery/Lesion type: [place] artery [place] vs. transplanted heart: [place] heart Associated angina: without angina Qualified Code(s): I25.10 - Atherosclerotic heart disease of [place] coronary artery without angina pectoris Is this a current diagnosis for this admission?: Yes (7) Hypertension Qualifiers: Hypertension type: essential hypertension Qualified Code(s): I10 - Essential (primary) hypertension Is this a current diagnosis for this admission?: Yes (8) Hematuria Is this a current diagnosis for this admission?: Yes - Plan Summary Summary: The patient will be admitted to the medical floor on observation bed assignment where he will receive routine supportive and symptomatic cares. A Diaz catheter was placed in the bladder in the emergency room and will be maintained throughout the patient's hospital stay until he can be seen in follow-up by urology. Patient will be started on tamsulosin 0.4 mg p.o. daily. His urinary tract infection will be treated withIV meropenem pending blood and urine culture results. Will be treated with IV fluids utilizing lactated Ringer's at 167 mL an hour x12 hours. Serial lactic acids will be obtained. CBCs, metabolic profiles and magnesium levels will be obtained as appropriate. Before meals and at bedtime Accu-Cheks will be obtained and hyperglycemia will be treated with sliding scale insulin while hypoglycemia will be treated with a hypoglycemic protocol. He will use morphine sulfate 2 to 4 mg IV every 2 hours on an as-needed basis for pain control. He will use Ativan 1 mg IV every 4 hours as needed for anxiety or agitation. He will be continued on his usual home medications as appropriate once his medication list has been verified and reconciled. 11/14/2019 Patient was admitted yesterday after midnight for generalized weakness and near falls. Patient also had what appeared to be uncontrolled diabetes as well as UTI and urinary retention Today his vital signs are stable his temperature is 98.3 pulse 94 blood pressure 139/76, O2 sat 98% on room air Patient is growing out MRSA in 2 blood cultures. Urine culture actually shows no growth in 1 day. Admission urinalysis showed a large amount of leukocytes but negative nitrates Finger stick glucose levels are from 173-326 and serum glucose levels run from 143-305 Patient was put back on his home medications CBC shows a white count on admission 19,000 and is now down to 15,000, electrolytes are normal Admission ultrasound of the pelvis showed minimal right hydronephrosis We will continue the IV meropenem pending sensitivities Clinically patient appears much improved and states he feels better 11/15/2019 Patient's heart rate has been fluctuating quite a bit came in with a heart rate of 120 gone down to 94 then down to 52 them back up to 104, however with no rhyme or reason. Patient is not symptomatic during these times. I am going to order an EKG, still maintaining O2 sat on room air Due to the fact that meropenem does not have good coverage for MRSA I am going to add vancomycin. Repeat labs in the morning Patient's bloody urine has cleared up a lot. No further clots today is just pink-colored but mostly yellow repete CT scan of abdomen and pelvis without contrast - Time Time Spent with patient: 25-34 minutes
[2019-11-15] MEDS ORDERED: VANCOMYCIN HCL 0 MG in DEXTROSE 5%-WATER 250 ML IV NR (13:15)
--- NOTE | 2019-11-15 15:25 | EKG REPORT ---
SEVERITY:- ABNORMAL ECG - SINUS TACHYCARDIA MULTIPLE ATRIAL PREMATURE COMPLEXES LEFT AXIS DEVIATION : Confirmed by: Parth Rivera 15-Nov-2019 15:24:58
[2019-11-15] MEDS: VANCOMYCIN HCL 1,500 MG in DEXTROSE 5%-WATER 250 ML IV SCH ×2 (16:26→23:52)
[2019-11-15] MEDS: TAMSULOSIN HCL 0.4 MG CAP.SR.24H PO SCH (17:25)
[2019-11-15] MEDS ORDERED: LIDOCAINE 2% URO-JET 5 ML KIT ONE (23:00)
[2019-11-15] MEDS ORDERED: LIDOCAINE 2% JELLY 5 ML TUBE MM ONE (23:15)
[2019-11-16] MEDS: IPRATROPIUM BROMIDE 0.02% NEB 0.5 MG/2.5 ML AMPUL NEB SCH ×3 (00:13→16:10)
[2019-11-16] MEDS: LEVALBUTEROL HCL NEB 1.25 MG/3 ML AMPUL NEB SCH ×3 (00:13→16:10)
--- NOTE | 2019-11-16 01:15 | RADIOLOGY REPORT (SQ) ---
EXAM DESCRIPTION: CT ABDOMEN PELVIS WITHOUT IV CONTRAST COMPLETED DATE/TME: 11/15/2019 00:00 CLINICAL HISTORY: 64 years Male Urinary retention COMPARISON: 11/12/2019. TECHNIQUE: Contiguous axial images obtained through the abdomen and pelvis without IV contrast. Reformatted images obtained. This exam was performed according to our department optimization program which includes automated exposure control, adjustment of the mA and/or kv according to patient size and/or use of iterative reconstruction technique. FINDINGS: Atelectasis and/or consolidation in the left lung base with elevation the left hemidiaphragm. This appears slightly worse than on the previous. The liver appears unremarkable. The spleen and pancreas appear unremarkable. No adrenal masses. Mild perinephric stranding and mild prominence of the renal collecting systems and ureters bilaterally which appears similar to the patient's previous exam. No obstructing stone is noted. Urinary bladder is decompressed and thick-walled with surrounding inflammatory change that may reflect cystitis. Mildly prominent prostate. The gallbladder is visualized. No aneurysmal dilatation of the aorta. No bowel obstruction. Moderate fecal material in the colon particularly in the rectosigmoid. There is stranding in the presacral space and extraperitoneal aspect of the pelvis. Unremarkable appendix. Small amount of fluid along the retroperitoneum on the right. IMPRESSION: Thick-walled decompressed urinary bladder with surrounding stranding. There is adjacent stranding in the extraperitoneal pelvis. Question cystitis Mild prominence of the renal collecting systems bilaterally with a small amount of perinephric and retroperitoneal inflammation. Question pyelonephritis. No obstructing stone is noted Worsening atelectasis or infiltrate in the left base
[2019-11-16] MEDS: MEROPENEM 1 GM in NORMAL SALINE 50 ML IV SCH ×2 (02:12→09:16)
--- NOTE | 2019-11-16 03:32 | Progress Note ---
Provider Note Provider Note: Critical care note: 11/15/2019 Critical care start time: 22:40 Critical care issue: Recurrent gross hematuria Patient was seen due to a recurrence of gross hematuria in his Diaz catheter beginning shortly after change of shift this evening. The hematuria has persisted since it was noticed to have reoccurred. Patient is not uncomfortable with this however we have discussed the fact that he does have a fair amount of discomfort with the flushing of the Diaz catheter with frequent irrigations. After a discussion at length with the patient and his nurse it was determined that the best course of action would be to start the patient on continuous bladder irrigation as this may be more comfortable for him. Patient was in agreement with plan. On examination his chest was clear to auscultation and his respirations were unlabored. Heart showed a regular rate and rhythm with a mild tachycardia noted. Abdomen is soft and nontender with bowel sounds present throughout all hernandez. Extremities revealed no cyanosis or edema. Patient was placed on continuous bladder irrigation and tolerated this well. Patient is tolerating the continuous bladder irrigation well upon my recheck visit. He is resting comfortably at this time. Critical care end time: 03:32 Total critical care time: 24 minutes
[2019-11-16] MEDS: HEPARIN SOD (PORCINE) 5,000 UNIT/ML 1 ML VIAL SUBCUT SCH ×3 (06:35→22:23)
[2019-11-16] MEDS: VANCOMYCIN HCL 1,500 MG in DEXTROSE 5%-WATER 250 ML IV SCH ×3 (06:35→23:30)
[2019-11-16 06:58] LABS: HEMATOCRIT 33.7 % (37.9-51.0); HEMOGLOBIN 11.1 g/dL (13.5-17.0); MEAN CORPUSCULAR HEMOGLOBIN 26.4 pg (27.0-33.4); MEAN CORPUSCULAR HGB CONC 32.9 g/dL (32.0-36.0); MEAN CORPUSCULAR VOLUME 80 fl (80-97); PLATELET COUNT 576 10^3/uL (150-450); RED CELL DISTRIBUTION WIDTH 14.2 % (11.5-14.0); WHITE BLOOD COUNT 12.8 10^3/uL (4.0-10.5)
[2019-11-16 07:16] LABS: ANION GAP 7 (5-19); BLOOD UREA NITROGEN 16 mg/dL (7-20); CALCIUM 9.5 mg/dL (8.4-10.2); CARBON DIOXIDE 24 mmol/L (22-30); CHLORIDE 102 mmol/L (98-107); GLUCOSE 168 mg/dL (75-110); POTASSIUM 4.8 mmol/L (3.6-5.0)
[2019-11-16 07:39] LABS: ABSOLUTE LYMPHOCYTES# (MANUAL) 1.8 10^3/uL (0.5-4.7); ABSOLUTE MONOCYTES # (MANUAL) 0.9 10^3/uL (0.1-1.4); BASOPHILS % (MANUAL) 0 % (0-2); EOSINOPHILS % (MANUAL) 0 % (0-6); LYMPHOCYTES % (MANUAL) 13 % (13-45); MONOCYTES % (MANUAL) 7 % (3-13); SEGMENTED NEUTROPHILS % (MAN) 79 % (42-78); TOTAL CELLS COUNTED 100
[2019-11-16 07:40] LABS: ANISOCYTOSIS SLIGHT; PLATELET COMMENT INCREASED; POLYCHROMASIA SLIGHT
[2019-11-16] MEDS: INSULIN REG, HUMAN 100 UNIT/ML 3 ML VIAL (PYX) SUBCUT SCH ×4 (08:50→22:24)
[2019-11-16] MEDS: HUM INSULIN NPH/REG INSULIN HM 100 UNIT/1 ML 3 ML SUBCUT SCH ×2 (08:51→16:47)
[2019-11-16] MEDS: FAMOTIDINE 20 MG TABLET PO SCH ×2 (09:15→22:23)
[2019-11-16] MEDS: METFORMIN HCL 500 MG TABLET PO SCH ×2 (09:15→17:22)
[2019-11-16] MEDS: LOSARTAN POTASSIUM 50 MG TABLET PO SCH ×2 (09:16→22:23)
[2019-11-16] MEDS: UMECLIDINIUM BROMIDE 62.5 MCG/DOSE IH SCH (09:16)
[2019-11-16] MEDS: LISINOPRIL 10 MG TABLET PO SCH (09:16)
[2019-11-16] MEDS: DOCUSATE SODIUM 100 MG CAPSULE PO SCH ×2 (09:16→17:22)
--- NOTE | 2019-11-16 11:43 | PDOC PROGRESS REPORT ---
Subjective Progress Note for:: 11/16/19 Reason For Visit: ACUTE URINARY RETENTION,URINARY TRACT INFECTION, 11/16/19 Patient was admitted for urinary retention uncontrolled diabetes generalized weakness and UTI Physical Exam Vital Signs: Temp Pulse Resp BP Pulse Ox 98.9 F 105 H 18 141/73 H 96 11/16/19 08:22 11/16/19 08:25 11/16/19 08:25 11/16/19 08:22 11/16/19 08:25 Intake & Output 11/15/19 11/16/19 11/17/19 06:59 06:59 06:59 Intake Total 1475 1665 300 Output Total 2400 2300 Balance -925 -635 300 Weight 101.8 kg 102.2 kg General appearance: PRESENT: no acute distress Respiratory exam: PRESENT: clear to auscultation roma. ABSENT: rales, rhonchi, wheezes Cardiovascular exam: PRESENT: RRR. ABSENT: diastolic murmur, rubs, systolic murmur Gentrourinary exam: PRESENT: other - Diaz catheter Neurological exam: PRESENT: alert, awake, oriented to person, oriented to place, oriented to time, oriented to situation, CN II-XII grossly intact. ABSENT: motor sensory deficit Psychiatric exam: PRESENT: flat affect Results Laboratory Results: 11/16/19 06:34 11/16/19 06:34 11/16/19 11/16/19 06:34 06:34 WBC 12.8 H RBC 4.20 L Hgb 11.1 L Hct 33.7 L MCV 80 MCH 26.4 L MCHC 32.9 RDW 14.2 H Plt Count 576 H Seg Neutrophils % Not Reportable Sodium 133.3 L Potassium 4.8 Chloride 102 Carbon Dioxide 24 Anion Gap 7 BUN 16 Creatinine 0.58 Est GFR ( Amer) > 60 Glucose 168 H Calcium 9.5 11/13/19 01:50 Blood Blood Culture (PCR) - Final Staphylococcus Aureus 11/13/19 01:50 Blood Blood Culture - Final Mrsa (Meth Resis Staph Aureus) 11/13/19 03:00 Blood Blood Culture (PCR) - Final Staphylococcus Aureus 11/13/19 03:00 Blood Blood Culture - Final Mrsa (Meth Resis Staph Aureus) Impressions: Wrist X-Ray 11/12/19 22:48 IMPRESSION: No acute osseous findings. Head CT 11/12/19 22:57 IMPRESSION: No acute intracranial findings. Possible expansile lesion in the sphenoid sinuses. Consider MRI. Abdomen Ultrasound 11/13/19 01:08 IMPRESSION: Minimal right hydronephrosis. Abdomen/Pelvis CT 11/15/19 00:00 IMPRESSION: Thick-walled decompressed urinary bladder with surrounding stranding. There is adjacent stranding in the extraperitoneal pelvis. Question cystitis Mild prominence of the renal collecting systems bilaterally with a small amount of perinephric and retroperitoneal inflammation. Question pyelonephritis. No obstructing stone is noted Worsening atelectasis or infiltrate in the left base Assessment and Plan - Diagnosis (1) Bladder outlet obstruction Is this a current diagnosis for this admission?: Yes (3) Diabetes mellitus type 2 in nonobese Is this a current diagnosis for this admission?: Yes (4) Leukocytosis Qualifiers: Leukocytosis type: unspecified Qualified Code(s): D72.829 - Elevated white blood cell count, unspecified Is this a current diagnosis for this admission?: Yes (5) UTI (urinary tract infection) Qualifiers: Urinary tract infection type: site unspecified Hematuria presence: with hematuria Qualified Code(s): N39.0 - Urinary tract infection, site not specified; R31.9 - Hematuria, unspecified Is this a current diagnosis for this admission?: Yes (6) Coronary artery disease Qualifiers: Coronary Disease-Associated Artery/Lesion type: [place] artery [place] vs. transplanted heart: [place] heart Associated angina: without angina Qualified Code(s): I25.10 - Atherosclerotic heart disease of [place] coronary artery without angina pectoris Is this a current diagnosis for this admission?: Yes (7) Hypertension Qualifiers: Hypertension type: essential hypertension Qualified Code(s): I10 - Essential (primary) hypertension Is this a current diagnosis for this admission?: Yes (8) Hematuria Is this a current diagnosis for this admission?: Yes - Plan Summary Summary: The patient will be admitted to the medical floor on observation bed assignment where he will receive routine supportive and symptomatic cares. A Diaz catheter was placed in the bladder in the emergency room and will be maintained throughout the patient's hospital stay until he can be seen in follow-up by urology. Patient will be started on tamsulosin 0.4 mg p.o. daily. His urinary tract infection will be treated withIV meropenem pending blood and urine culture results. Will be treated with IV fluids utilizing lactated Ringer's at 167 mL an hour x12 hours. Serial lactic acids will be obtained. CBCs, metabolic profiles and magnesium levels will be obtained as appropriate. Before meals and at bedtime Accu-Cheks will be obtained and hyperglycemia will be treated with sliding scale insulin while hypoglycemia will be treated with a hypoglycemic protocol. He will use morphine sulfate 2 to 4 mg IV every 2 hours on an as-needed basis for pain control. He will use Ativan 1 mg IV every 4 hours as needed for anxiety or agitation. He will be continued on his usual home medications as appropriate once his medication list has been verified and reconciled. 11/14/2019 Patient was admitted yesterday after midnight for generalized weakness and near falls. Patient also had what appeared to be uncontrolled diabetes as well as UTI and urinary retention Today his vital signs are stable his temperature is 98.3 pulse 94 blood pressure 139/76, O2 sat 98% on room air Patient is growing out MRSA in 2 blood cultures. Urine culture actually shows no growth in 1 day. Admission urinalysis showed a large amount of leukocytes but negative nitrates Finger stick glucose levels are from 173-326 and serum glucose levels run from 143-305 Patient was put back on his home medications CBC shows a white count on admission 19,000 and is now down to 15,000, el ectrolytes are normal Admission ultrasound of the pelvis showed minimal right hydronephrosis We will continue the IV meropenem pending sensitivities Clinically patient appears much improved and states he feels better 11/15/2019 Patient's heart rate has been fluctuating quite a bit came in with a heart rate of 120 gone down to 94 then down to 52 them back up to 104, however with no rhyme or reason. Patient is not symptomatic during these times. I am going to order an EKG, still maintaining O2 sat on room air Due to the fact that meropenem does not have good coverage for MRSA I am going to add vancomycin. Repeat labs in the morning Patient's bloody urine has cleared up a lot. No further clots today is just pink-colored but mostly yellow repeat CT scan of abdomen and pelvis without contrast 11/16/2019 Last night the hospitalist was called because once again his Diaz catheter started draining gross blood. Therefore at approximately 0100 hrs. continuous bladder irrigation was started. Morning on rounds patient is draining clear yellow urine no signs of blood clots or bleeding. Patient has been on continuous bladder irrigation now for approximately 6 hours. Temperature 98.9 pulse 105, blood pressure 141/73 EKG shows sinus tach with multiple atrial premature contractions O2 saturations 96% on room air White count continues to improve slowly today is 12.8 down from admission 19.2 Chemistry 7 is normal Patient is now growing out MRSA in his urine MRSA in his blood culture I have consulted infectious disease. Patient currently now on vancomycin and meropenem. Patient resumes passing clots in his urine I will start the continuous bladder irrigation once again. Undoubtably this patient will need to be discharged to home with a Diaz catheter and follow-up with urology. The question also remains as to how long he will need to be on IV antibiotics. Brian CT scan yesterday of the abdomen and pelvis shows stranding around the bladder as well as adjacent stranding in the extraperitoneal pelvis with questionable cystitis. Also small amount of perinephric and retroperitoneal inflammation with questionable pyelonephritis Lungs also appear to have a possible infiltrate in the left base. Patient appears have bacteremia as well as uremia and now possibly pneumonia as well. Patient's bacteremia and uremia may also be the result of pyelonephritis. - Time Time Spent with patient: 35 or more minutes
[2019-11-16 14:17] LABS: VANCOMYCIN,TROUGH 23.9 ug/mL (5.0-20.0)
--- NOTE | 2019-11-16 14:49 | Progress Note ---
Provider Note Provider Note: [facility] Telephone Advice Consultation Chart reviewed. This is a 64-year-old man with DM2, hypertension, CAD, hypercholesterolemia who was recently admitted due to bronchitis and hyperglycemia (worsened by prednisone). He was discharged home on 10/31. Blood cultures from 10/02, 10/28 and 10/29 were all negative. He was admitted this time with weakness x 2 weeks. On admission he had marked leukocytosis and blood cultures from 11/13 are positive for MRSA. His urine culture grew MRSA as well.A CT scan of abdomen and pelvis demonstrated perinephric, possible pyleonephritis/cystitis. There was right hydronephrosis noted on US. He continued with hematuria requiring now continuous bladder irrigation. He was started on vancomycin and meropenem. Leukocytosis has improved. Renal function stable. ID consulted for recommendations. PMH: COPD CAD Hypertension DM2 Allergies: No Known Allergies Allergy (Verified 10/28/19 23:10) Medications: Albuterol Sulfate [Albuterol Sulfate Hfa] 2 puff IH Q6 11/13/19 Albuterol Sulfate [Ventolin 0.083% Neb 2.5 mg/3 mL Ampul] 1 vial NEB RTQ6 11/13/19 Cyclobenzaprine HCl [Flexeril 10 mg Tablet] 5 mg PO Q8HP PRN 11/13/19 Fluticasone/Salmeterol [Advair 500-50 Diskus 14 Dose/Diskus] 1 puff IH Q12 11/13/19 Insulin Aspart Prot/Insuln Asp [Novolog Mix 70-30 Flexpen] 8 unit SQ QPM 11/13/19 Insulin Aspart Prot/Insuln Asp [Novolog Mix 70-30 Flexpen] 15 unit SQ QAM 11/13/19 Lisinopril [Zestril] 40 mg PO DAILY 11/13/19 Losartan Potassium [Cozaar 50 mg Tablet] 50 mg PO Q12 11/13/19 Metformin HCl [Glucophage 500 mg Tablet] 500 mg PO BID 11/13/19 Tamsulosin HCl [Flomax] 0.4 mg PO DAILY 11/13/19 Tiotropium [place] [Spiriva Respimat] 1 puff IH DAILY 11/13/19 Tramadol HCl [Ultram 50 mg Tablet] 50 mg PO Q6HP PRN 11/13/19 Vital Signs: Temp Pulse Resp BP Pulse Ox 98.8 F 110 H 17 136/78 H 98 11/16/19 11:46 11/16/19 11:46 11/16/19 11:46 11/16/19 11:46 11/16/19 11:46 Intake & Output 11/15/19 11/16/19 11/17/19 06:59 06:59 06:59 Intake Total 1475 1665 780 Output Total 2400 2300 0 Balance -925 -635 780 Weight 101.8 kg 102.2 kg Weight/Height Weight 102.2 kg Height 6 ft 6 in Laboratories: 11/16/19 06:34 11/16/19 06:34 MCV 80 fl (80-97) 11/16/19 06:34 MCH 26.4 pg (27.0-33.4) L 11/16/19 06:34 MCHC 32.9 g/dL (32.0-36.0) 11/16/19 06:34 RDW 14.2 % (11.5-14.0) H 11/16/19 06:34 Seg Neutrophils % Not Reportable 11/16/19 06:34 VBG pH 7.38 (7.30-7.42) 11/13/19 02:16 VBG pCO2 39.1 mmHg (35-63) 11/13/19 02:16 VBG HCO3 22.5 mmol/L (20-32) 11/13/19 02:16 VBG Base Excess -2.4 mmol/L 11/13/19 02:16 Chloride 102 mmol/L (98-107) 11/16/19 06:34 Carbon Dioxide 24 mmol/L (22-30) 11/16/19 06:34 Anion Gap 7 (5-19) 11/16/19 06:34 Est GFR ( Amer) > 60 (>60) 11/16/19 06:34 Glucose 168 mg/dL (75-110) H 11/16/19 06:34 Lactic Acid 1.0 mmol/L (0.7-2.1) 11/13/19 12:49 Calcium 9.5 mg/dL (8.4-10.2) 11/16/19 06:34 Magnesium 1.9 mg/dL (1.6-2.3) 11/14/19 05:08 Total Bilirubin 0.5 mg/dL (0.2-1.3) 11/12/19 21:25 AST 40 U/L (17-59) 11/12/19 21:25 Alkaline Phosphatase 208 U/L (38-126) H 11/12/19 21:25 Total Protein 7.5 g/dL (6.3-8.2) 11/12/19 21:25 Albumin 3.4 g/dL (3.5-5.0) L 11/12/19 21:25 Urine Color ANGELA 11/12/19 23:48 Urine Appearance CLOUDY 11/12/19 23:48 Urine pH 7.0 (5.0-9.0) 11/12/19 23:48 Ur Specific [place] 1.013 11/12/19 23:48 Urine Protein 100 mg/dL (NEGATIVE) H 11/12/19 23:48 Urine Glucose (UA) >=500 mg/dL (NEGATIVE) H 11/12/19 23:48 Urine Ketones NEGATIVE mg/dL (NEGATIVE) 11/12/19 23:48 Urine Blood LARGE (NEGATIVE) H 11/12/19 23:48 Urine Nitrite NEGATIVE (NEGATIVE) 11/12/19 23:48 Ur Leukocyte Esterase LARGE (NEGATIVE) H 11/12/19 23:48 Urine WBC (Auto) >182 /HPF 11/12/19 23:48 Urine RBC (Auto) >182 /HPF 11/12/19 23:48 11/13/19 01:50 Blood Blood Culture (PCR) - Final Staphylococcus Aureus 11/13/19 01:50 Blood Blood Culture - Final Mrsa (Meth Resis Staph Aureus) 11/13/19 03:00 Blood Blood Culture (PCR) - Final Staphylococcus Aureus 11/13/19 03:00 Blood Blood Culture - Final Mrsa (Meth Resis Staph Aureus) 11/13/19 Urine Culture MRSA Radiology: Wrist X-Ray 11/12/19 22:48 IMPRESSION: No acute osseous findings. Head CT 11/12/19 22:57 IMPRESSION: No acute intracranial findings. Possible expansile lesion in the sphenoid sinuses. Consider MRI. Abdomen Ultrasound 11/13/19 01:08 IMPRESSION: Minimal right hydronephrosis. Abdomen/Pelvis CT 11/15/19 00:00 IMPRESSION: Thick-walled decompressed urinary bladder with surrounding stranding. There is adjacent stranding in the extraperitoneal pelvis. Question cystitis Mild prominence of the renal collecting systems bilaterally with a small amount of perinephric and retroperitoneal inflammation. Question pyelonephritis. No obstructing stone is noted Worsening atelectasis or infiltrate in the left base Assessment and Recommendations: Patient evaluated for MRSA bacteremia from possible pyelonephritis. He presented with hematuria, urinary retention. US demonstrating hydronephrosis and CT scan with signs of pyelonephritis. He is on vancomycin and meropenem. This seems to be all related to MRSA, will recommend to discontinue meropenem. He will need a TTE, repeat blood cultures to assess for clearance of bacteremia. He will need probably 2-4 weeks of vancomycin for complicated bacteremia if TTE negative and he cleared the bacteremia. His previous blood cultures were negative, not clear if this could've been hospital acquired (catheter related?). May consider urology evaluation. Please call if questions. Jess Soto MD [facility] [id number]
[2019-11-16] MEDS: TAMSULOSIN HCL 0.4 MG CAP.SR.24H PO SCH (17:22)
[2019-11-16] MEDS ORDERED: PHARMACY COMMUNICATION ORDER MC SCH (22:00)
[2019-11-16 22:37] LABS: VANCOMYCIN,TROUGH 15.3 ug/mL (5.0-20.0)
[2019-11-16] MEDS: LEVALBUTEROL HCL NEB 0.63 MG/3 ML AMPUL NEB PRN (22:50)
[2019-11-17] MEDS: LEVALBUTEROL HCL NEB 1.25 MG/3 ML AMPUL NEB SCH ×4 (00:10→23:02)
[2019-11-17] MEDS: IPRATROPIUM BROMIDE 0.02% NEB 0.5 MG/2.5 ML AMPUL NEB SCH ×4 (00:10→23:02)
[2019-11-17] MEDS: ACETAMINOPHEN 325 MG TABLET PO PRN ×3 (01:57→23:12)
[2019-11-17] MEDS: HEPARIN SOD (PORCINE) 5,000 UNIT/ML 1 ML VIAL SUBCUT SCH ×3 (06:19→22:36)
[2019-11-17] MEDS: VANCOMYCIN HCL 1,500 MG in DEXTROSE 5%-WATER 250 ML IV SCH ×3 (06:25→22:39)
[2019-11-17] MEDS: HUM INSULIN NPH/REG INSULIN HM 100 UNIT/1 ML 3 ML SUBCUT SCH (09:01)
[2019-11-17] MEDS: INSULIN REG, HUMAN 100 UNIT/ML 3 ML VIAL (PYX) SUBCUT SCH ×2 (09:02→12:16)
[2019-11-17] MEDS: LISINOPRIL 10 MG TABLET PO SCH (10:42)
[2019-11-17] MEDS: METFORMIN HCL 500 MG TABLET PO SCH ×2 (10:43→17:32)
[2019-11-17] MEDS: DOCUSATE SODIUM 100 MG CAPSULE PO SCH ×2 (10:43→17:32)
[2019-11-17] MEDS: FAMOTIDINE 20 MG TABLET PO SCH ×2 (10:43→22:36)
[2019-11-17] MEDS: LOSARTAN POTASSIUM 50 MG TABLET PO SCH ×2 (10:43→22:36)
[2019-11-17] MEDS: UMECLIDINIUM BROMIDE 62.5 MCG/DOSE IH SCH (10:52)
--- NOTE | 2019-11-17 12:44 | PDOC PROGRESS REPORT ---
Subjective Progress Note for:: 11/17/19 Subjective:: 64-year-old man with DM2, hypertension, CAD, hypercholesterolemia who was recently admitted due to bronchitis and hyperglycemia. Presented to ED complaining of weakness x 2 weeks. On admission he had marked leukocytosis and blood cultures from 11/13 are positive for MRSA. His urine culture grew MRSA as well. A CT scan of abdomen and pelvis demonstrated perinephric, possible pyleonephritis/cystitis. There was right hydronephrosis noted on US. 11/17/2019. No acute events overnight. Patient resting in his recliner in no apparent distress, accompanied by his , still on bladder irrigation, hematuria seems to have resolved. Denies any chest pain, nausea, vomiting, diarrhea, constipation or any urinary symptoms. Alert and oriented x3. Cooperative with physical examination. P.o. tolerant. Having normal bowel movements. Reason For Visit: ACUTE URINARY RETENTION,URINARY TRACT INFECTION, Physical Exam Vital Signs: Temp Pulse Resp BP Pulse Ox 97.5 F 110 H 19 141/92 H 100 11/17/19 11:21 11/17/19 11:12 11/17/19 11:21 11/17/19 11:21 11/17/19 11:12 Intake & Output 11/16/19 11/17/19 11/18/19 06:59 06:59 06:59 Intake Total 1665 2080 Output Total 2300 4525 Balance -635 -2445 Weight 102.2 kg 98.9 kg General appearance: PRESENT: no acute distress, well-developed, well-nourished Head exam: PRESENT: atraumatic, normocephalic Respiratory exam: PRESENT: clear to auscultation roma. ABSENT: rales, rhonchi, wheezes Cardiovascular exam: PRESENT: bradycardia GI/Abdominal exam: PRESENT: normal bowel sounds, soft. ABSENT: distended, guarding, mass, organolmegaly, rebound, tenderness Gentrourinary exam: PRESENT: indwelling catheter, other - On bladder irrigation. Urine output looks clear. Neurological exam: PRESENT: alert, awake, oriented to person, oriented to place, oriented to time, oriented to situation, CN II-XII grossly intact. ABSENT: motor sensory deficit Results Laboratory Results: 11/16/19 06:34 11/16/19 06:34 Impressions: Wrist X-Ray 11/12/19 22:48 IMPRESSION: No acute osseous findings. Head CT 11/12/19 22:57 IMPRESSION: No acute intracranial findings. Possible expansile lesion in the sphenoid sinuses. Consider MRI. Abdomen Ultrasound 11/13/19 01:08 IMPRESSION: Minimal right hydronephrosis. Abdomen/Pelvis CT 11/15/19 00:00 IMPRESSION: Thick-walled decompressed urinary bladder with surrounding stranding. There is adjacent stranding in the extraperitoneal pelvis. Question cystitis Mild prominence of the renal collecting systems bilaterally with a small amount of perinephric and retroperitoneal inflammation. Question pyelonephritis. No obstructing stone is noted Worsening atelectasis or infiltrate in the left base Assessment and Plan - Diagnosis (1) Hematuria Qualifiers: Hematuria type: gross Qualified Code(s): R31.0 - Gross hematuria Is this a current diagnosis for this admission?: Yes Plan: Resolved. On continuous bladder irrigation. Likely due to cystitis/pyelonephritis. CT abdomen pelvis 11/15/2019 showed thick-walled urinary bladder with surrounding stranding, mild prominence of the renal collecting system bilaterally with a small amount of perinephric and retroperitoneal inflammation. No obstructing stone noted. Continue continuous bladder irrigation. Monitor H&H. Unfortunately no urologist consult available at [facility]. Patient will need outpatient neurology follow-up. (2) Bladder outlet obstruction Is this a current diagnosis for this admission?: Yes Plan: History of BPH. Currently Diaz catheter in. Continue tamsulosin. Avoid meds with anticholinergic side effects. Continue Diaz cath care. Bladder training before Diaz cath removal. If patient keeps having persistent urine retention after Diaz cath removal he would need to be discharged with Diaz cath until evaluated by urologist. (3) MRSA bacteremia Is this a current diagnosis for this admission?: Yes Plan: Likely source pyelonephritis, both urine and blood culture from admission positive for MRSA. Day 4 IV antibiotics. Day 2 IV vancomycin. Received 3 days of IV meropenem. Infectious disease consulted, recommendations are TTE to rule out endocarditis and if negative for patient to be discharged on IV vancomycin 2 to 4 weeks. Continue IV vancomycin. Repeat urine and blood culture. Follow-up 2D echo. (4) Coronary artery disease Qualifiers: Coronary Disease-Associated Artery/Lesion type: [place] artery [place] vs. transplanted heart: [place] heart Associated angina: without angina Qualified Code(s): I25.10 - Atherosclerotic heart disease of [place] coronary artery without angina pectoris Is this a current diagnosis for this admission?: Yes Plan: Denies any anginal symptoms. SPO2 WNL on RA. Vitals stable. Continue current regimen. (5) Hypertension Qualifiers: Hypertension type: essential hypertension Qualified Code(s): I10 - Essential (primary) hypertension Is this a current diagnosis for this admission?: Yes Plan: Euvolemic. Normotensive. Continue current regimen. Adjust meds as needed. Outpatient PCP follow-up. (6) UTI (urinary tract infection) Qualifiers: Urinary tract infection type: site unspecified Hematuria presence: with hematuria Qualified Code(s): N39.0 - Urinary tract infection, site not specif ied; R31.9 - Hematuria, unspecified Is this a current diagnosis for this admission?: Yes Plan: Complicated urinary tract infection. CT findings suggestive of bladder wall thickening and hydronephrosis and possible pyelonephritis. Urine culture positive for MRSA. Plan as per MRSA bacteremia. (7) Diabetes mellitus type 2 in nonobese Is this a current diagnosis for this admission?: Yes Plan: Controlled. Hemoglobin A1c 8.6. Continue diabetic diet, basal, prandial and correctional insulin. Hypoglycemic protocol. Accu-Chek. Restart home meds upon discharge. Outpatient PCP follow-up.
[2019-11-17] MEDS ORDERED: DEXTROSE 40% GEL 15 GM TUBE PO PRN ×2 (13:07)
[2019-11-17] MEDS ORDERED: GLUCAGON,HUMAN RECOMB 1 MG INJ IM PRN (13:07)
[2019-11-17] MEDS ORDERED: DEXTROSE 50%-WATER 25 GM/50 ML DISP.SYRIN IV PRN ×2 (13:07)
[2019-11-17] MEDS ORDERED: HYDRALAZINE HCL INJ/PF 20 MG/1 ML SDV IV PRN (13:27)
[2019-11-17] MEDS: INSULIN LISPRO 100 UNIT/ML 3 ML VIAL SUBCUT SCH ×2 (17:25→22:37)
[2019-11-17] MEDS: TAMSULOSIN HCL 0.4 MG CAP.SR.24H PO SCH (17:32)
--- NOTE | 2019-11-17 17:37 | XCELERA REPORT ---
[address] [address] Transthoracic Echocardiogram Report Name: MIC DIAZ Age: 64 yrs Gender: Male : 1955 Patient Status: Inpatient Patient Location: [address] [place] [address] Study Date: 11/17/2019 10:12 AM Height: 78 in Weight: 225 lb BSA: 2.4 m2 Procedure: A two-dimensional transthoracic echocardiogram with color flow and Doppler was performed. Study Quality: Poor. Poor endocardial visualisation. Reason For Study: bacteremia History: bacteremia. Ordering Physician: THERESA TOMAS Performed By: Mami Ivy Interpretation Summary Proably normal LVsize and probably no LVH.[place]ann[place] assess wall mtion or LVEFMid LV diastolic dysfunction by dopplers. No Stenotic or regurgtint valvular lesions Recommend ANANDA if endocarditis suspicion is [place]. Proably normal LVsize and probably no LVH.[place] assess wall mtion or LVEFMid LV diastolic dysfunction by dopplers. No Stenotic or regurgtint valvular lesions Recommend ANANDA if endocarditis suspicion is [place]. MMode/2D Measurements & Calculations RVDd: 2.6 cm LVIDd: 4.1 cm FS: 24.1 % Ao root diam: 3.2 cm IVSd: 1.1 cm LVIDs: 3.1 cm EDV(Teich): 73.6 ml Ao root area: 8.3 cm2 LVPWd: 1.1 cm ESV(Teich): 37.9 ml LA dimension: 3.0 cm EF(Teich): 48.5 % Doppler Measurements & Calculations MV E max barb: MV P1/2t max barb: Ao V2 max: LV V1 max P.8 cm/sec 94.1 cm/sec 125.1 cm/sec 5.7 mmHg MV A max barb: MV P1/2t: 34.0 msec Ao max PG: LV V1 max: 120.9 cm/sec MVA(P1/2t): 6.5 cm2 6.3 mmHg 119.4 cm/sec MV E/A: 0.45 MV dec slope: 810.5 cm/sec2 MV dec time: 0.25 sec PA V2 max: MV P1/2t-pr_phl: 83.9 cm/sec 34.2 msec PA max P.8 mmHg : THERESA TOMAS Lakshmi
[2019-11-17] MEDS: AMLODIPINE BESYLATE 5 MG TABLET PO SCH (22:36)
[2019-11-17] MEDS: INSULIN GLARGINE,HUM.REC.ANLOG 1,000 UNIT/10 ML VIAL SUBCUT SCH (22:38)
[2019-11-18 05:21] LABS: ANION GAP 9 (5-19); BLOOD UREA NITROGEN 15 mg/dL (7-20); CALCIUM 9.6 mg/dL (8.4-10.2); CARBON DIOXIDE 23 mmol/L (22-30); CHLORIDE 102 mmol/L (98-107); GLUCOSE 167 mg/dL (75-110); POTASSIUM 5.1 mmol/L (3.6-5.0)
[2019-11-18 05:24] LABS: HEMATOCRIT 36.3 % (37.9-51.0); HEMOGLOBIN 11.7 g/dL (13.5-17.0); MEAN CORPUSCULAR HEMOGLOBIN 26.2 pg (27.0-33.4); MEAN CORPUSCULAR HGB CONC 32.3 g/dL (32.0-36.0); MEAN CORPUSCULAR VOLUME 81 fl (80-97); RED BLOOD COUNT 4.48 10^6/uL (4.35-5.55); RED CELL DISTRIBUTION WIDTH 14.1 % (11.5-14.0); WHITE BLOOD COUNT 13.5 10^3/uL (4.0-10.5)
[2019-11-18 05:44] LABS: PLATELET COUNT 460 10^3/uL (150-450)
[2019-11-18] MEDS: HEPARIN SOD (PORCINE) 5,000 UNIT/ML 1 ML VIAL SUBCUT SCH ×3 (06:06→21:40)
[2019-11-18] MEDS: VANCOMYCIN HCL 1,500 MG in DEXTROSE 5%-WATER 250 ML IV SCH ×3 (06:06→21:40)
[2019-11-18 08:21] LABS: AMORPHOUS SEDIMENT,URINE TRACE /HPF; APPEARANCE,URINE CLOUDY; BILIRUBIN,URINE NEGATIVE (NEGATIVE); COLOR,URINE YELLOW; GLUCOSE, URINE NEGATIVE (NEGATIVE); KETONES,URINE NEGATIVE (NEGATIVE); PROTEIN,URINE 100 mg/dL (NEGATIVE); UROBILINOGEN,URINE NEGATIVE mg/dL (<2.0)
[2019-11-18] MEDS: INSULIN LISPRO 100 UNIT/ML 3 ML VIAL SUBCUT SCH ×4 (08:28→21:35)
[2019-11-18] MEDS ORDERED: SODIUM POLYSTYRENE SULFONATE 15 GM/60 ML PO ONE (08:30)
[2019-11-18] MEDS: IPRATROPIUM BROMIDE 0.02% NEB 0.5 MG/2.5 ML AMPUL NEB SCH ×2 (08:38→16:44)
[2019-11-18] MEDS: LEVALBUTEROL HCL NEB 1.25 MG/3 ML AMPUL NEB SCH ×2 (08:38→16:44)
--- NOTE | 2019-11-18 08:56 | Progress Note ---
Provider Note Provider Note: [facility] Telephone Advice - Follow Up Chart reviewed. Patient is a 64-year-old man with DM2, hypertension, CAD, hypercholesterolemia who was recently admitted due to bronchitis and hyperglycemia (worsened by prednisone). He was discharged home on 10/31. Blood cultures from 10/02, 10/28 and 10/29 were all negative. He was admitted this time with weakness x 2 weeks. On admission he had marked leukocytosis and blood cultures from 11/13 are positive for MRSA. His urine culture grew MRSA as well. A CT scan of abdomen and pelvis demonstrated perinephric stranding, possible pyleonephritis/cystitis. There was right hydronephrosis noted on US. He continued with hematuria requiring now continuous bladder irrigation. He was started on vancomycin and meropenem. Leukocytosis has improved. Renal function stable. Meropenem has been discontinued. He has good vancomycin trough. New blood cultures from 11/17 are positive. TTE negative. Allergies: No Known Allergies Allergy (Verified 10/28/19 23:10) Medications: Albuterol Sulfate [Albuterol Sulfate Hfa] 2 puff IH Q6 11/13/19 Albuterol Sulfate [Ventolin 0.083% Neb 2.5 mg/3 mL Ampul] 1 vial NEB RTQ6 11/13/19 Fluticasone/Salmeterol [Advair 500-50 Diskus 14 Dose/Diskus] 1 puff IH Q12 11/13/19 Insulin Aspart Prot/Insuln Asp [Novolog Mix 70-30 Flexpen] 8 unit SQ QPM 11/13/19 Insulin Aspart Prot/Insuln Asp [Novolog Mix 70-30 Flexpen] 15 unit SQ QAM 11/13/19 Losartan Potassium [Cozaar 50 mg Tablet] 50 mg PO Q12 11/13/19 Metformin HCl [Glucophage 500 mg Tablet] 500 mg PO BID 11/13/19 Tamsulosin HCl [Flomax] 0.4 mg PO DAILY 11/13/19 Tiotropium [place] [Spiriva Respimat] 1 puff IH DAILY 11/13/19 Vital Signs: Temp Pulse Resp BP Pulse Ox 97.7 F 96 20 114/71 100 11/18/19 03:32 11/18/19 03:32 11/18/19 03:32 11/18/19 03:32 11/18/19 03:32 Intake & Output 11/17/19 11/18/19 11/19/19 06:59 06:59 06:59 Intake Total 2085 1490 Output Total 5461 1499 Balance -2445 -860 Weight 98.9 kg 97.5 kg Weight/Height Weight 97.5 kg Height 6 ft 6 in Laboratories: 11/18/19 03:44 11/18/19 03:44 MCV 81 fl (80-97) 11/18/19 03:44 MCH 26.2 pg (27.0-33.4) L 11/18/19 03:44 MCHC 32.3 g/dL (32.0-36.0) 11/18/19 03:44 RDW 14.1 % (11.5-14.0) H 11/18/19 03:44 Seg Neutrophils % Not Reportable 11/16/19 06:34 VBG pH 7.38 (7.30-7.42) 11/13/19 02:16 VBG pCO2 39.1 mmHg (35-63) 11/13/19 02:16 VBG HCO3 22.5 mmol/L (20-32) 11/13/19 02:16 VBG Base Excess -2.4 mmol/L 11/13/19 02:16 Chloride 102 mmol/L (98-107) 11/18/19 03:44 Carbon Dioxide 23 mmol/L (22-30) 11/18/19 03:44 Anion Gap 9 (5-19) 11/18/19 03:44 Est GFR ( Amer) > 60 (>60) 11/18/19 03:44 Glucose 167 mg/dL (75-110) H 11/18/19 03:44 Lactic Acid 1.0 mmol/L (0.7-2.1) 11/13/19 12:49 Calcium 9.6 mg/dL (8.4-10.2) 11/18/19 03:44 Magnesium 1.9 mg/dL (1.6-2.3) 11/14/19 05:08 Total Bilirubin 0.5 mg/dL (0.2-1.3) 11/12/19 21:25 AST 40 U/L (17-59) 11/12/19 21:25 Alkaline Phosphatase 208 U/L (38-126) H 11/12/19 21:25 Total Protein 7.5 g/dL (6.3-8.2) 11/12/19 21:25 Albumin 3.4 g/dL (3.5-5.0) L 11/12/19 21:25 Urine Color ANGELA 11/12/19 23:48 Urine Appearance CLOUDY 11/12/19 23:48 Urine pH 7.0 (5.0-9.0) 11/12/19 23:48 Ur Specific [place] 1.013 11/12/19 23:48 Urine Protein 100 mg/dL (NEGATIVE) H 11/12/19 23:48 Urine Glucose (UA) >=500 mg/dL (NEGATIVE) H 11/12/19 23:48 Urine Ketones NEGATIVE mg/dL (NEGATIVE) 11/12/19 23:48 Urine Blood LARGE (NEGATIVE) H 11/12/19 23:48 Urine Nitrite NEGATIVE (NEGATIVE) 11/12/19 23:48 Ur Leukocyte Esterase LARGE (NEGATIVE) H 11/12/19 23:48 Urine WBC (Auto) >182 /HPF 11/12/19 23:48 Urine RBC (Auto) >182 /HPF 11/12/19 23:48 11/17/19 11:39 Blood Blood Culture (PCR) - Final Staphylococcus Aureus 11/17/19 12:57 Blood Blood Culture (PCR) - Final Staphylococcus Aureus 11/13/19 16:30 Diaz Catheter Urine Culture - Final Mrsa (Meth Resis Staph Aureus) Radiology: Wrist X-Ray 11/12/19 22:48 IMPRESSION: No acute osseous findings. Head CT 11/12/19 22:57 IMPRESSION: No acute intracranial findings. Possible expansile lesion in the sphenoid sinuses. Consider MRI. Abdomen Ultrasound 11/13/19 01:08 IMPRESSION: Minimal right hydronephrosis. Abdomen/Pelvis CT 11/15/19 00:00 IMPRESSION: Thick-walled decompressed urinary bladder with surrounding stranding. There is adjacent stranding in the extraperitoneal pelvis. Question cystitis Mild prominence of the renal collecting systems bilaterally with a small amount of perinephric and retroperitoneal inflammation. Question pyelonephritis. No obstructing stone is noted Worsening atelectasis or infiltrate in the left base Assessment and Recommendations: Patient evaluated due to MRSA bacteremia suspected to be from the urinary tract/pyelonephritis as patient presented with hematuria. Blood cultures from 10/13 positive and from 10/17 still positive. TTE negative for vegetations. Good vancomycin trough, which makes me think that he is still bacteremic due to lack of source control. He needs urology evaluation, ANANDA, assess for other possible foci of metastatic infection as the joints or his back that would require any intervention for source control. Continue vancomycin (keep trough 15-20 and monitor GFR). If any central lines or catheter, please exchange. Will follow. Jess Soto MD [facility] [id number]
[2019-11-18] MEDS: LOSARTAN POTASSIUM 50 MG TABLET PO SCH ×2 (10:49→21:41)
[2019-11-18] MEDS: DOCUSATE SODIUM 100 MG CAPSULE PO SCH ×2 (10:49→17:53)
[2019-11-18] MEDS: FAMOTIDINE 20 MG TABLET PO SCH ×2 (10:49→21:40)
[2019-11-18] MEDS: UMECLIDINIUM BROMIDE 62.5 MCG/DOSE IH SCH (10:49)
[2019-11-18] MEDS: METFORMIN HCL 500 MG TABLET PO SCH ×2 (10:50→18:11)
--- NOTE | 2019-11-18 12:23 | PDOC PROGRESS REPORT ---
Subjective Progress Note for:: 11/18/19 Subjective:: 64-year-old man with DM2, hypertension, CAD, hypercholesterolemia who was recently admitted due to bronchitis and hyperglycemia. Presented to ED complaining of weakness x 2 weeks. On admission he had marked leukocytosis and blood cultures from 11/13 are positive for MRSA. His urine culture grew MRSA as well. A CT scan of abdomen and pelvis demonstrated perinephric, possible pyleonephritis/cystitis. There was right hydronephrosis noted on US. 11/17/2019. No acute events overnight. Patient resting in his recliner in no apparent distress, accompanied by his , still on bladder irrigation, hematuria seems to have resolved. Denies any chest pain, nausea, vomiting, diarrhea, constipation or any urinary symptoms. Alert and oriented x3. Cooperative with physical examination. P.o. tolerant. Having normal bowel movements. 11/18/2019. No acute events overnight. Comfortably sitting up in apparent distress. Denies any fever, chills, nausea, vomiting, diarrhea, constipation. P.o. tolerant. Unfortunately patient still having hematuria and repeat blood cultures are positive for gram-positive cocci in clusters. Reason For Visit: ACUTE URINARY RETENTION,URINARY TRACT INFECTION, Physical Exam Vital Signs: Temp Pulse Resp BP Pulse Ox 97.7 F 99 16 104/58 L 96 11/18/19 08:04 11/18/19 08:38 11/18/19 08:38 11/18/19 08:04 11/18/19 08:38 Intake & Output 11/17/19 11/18/19 11/19/19 06:59 06:59 06:59 Intake Total 2080 1490 Output Total 1426 0160 Balance -2445 -860 Weight 98.9 kg 97.5 kg General appearance: PRESENT: no acute distress, well-developed, well-nourished Head exam: PRESENT: atraumatic, normocephalic Respiratory exam: PRESENT: clear to auscultation roma. ABSENT: rales, rhonchi, wheezes Cardiovascular exam: PRESENT: RRR. ABSENT: diastolic murmur, rubs, systolic murmur GI/Abdominal exam: PRESENT: normal bowel sounds, soft. ABSENT: distended, guarding, mass, organolmegaly, rebound, tenderness Extremities exam: PRESENT: full ROM. ABSENT: calf tenderness, clubbing, pedal edema Neurological exam: PRESENT: alert, awake, oriented to person, oriented to place, oriented to time, oriented to situation, CN II-XII grossly intact. ABSENT: motor sensory deficit Results Laboratory Results: 11/18/19 03:44 11/18/19 03:44 11/18/19 11/18/19 11/18/19 03:44 03:44 08:00 WBC 13.5 H RBC 4.48 Hgb 11.7 L Hct 36.3 L MCV 81 MCH 26.2 L MCHC 32.3 RDW 14.1 H Plt Count 460 H Sodium 133.7 L Potassium 5.1 H Chloride 102 Carbon Dioxide 23 Anion Gap 9 BUN 15 Creatinine 0.53 Est GFR ( Amer) > 60 Glucose 167 H Calcium 9.6 Urine Color YELLOW Urine Appearance CLOUDY Urine pH 6.0 Ur Specific [place] 1.010 Urine Protein 100 H Urine Glucose (UA) NEGATIVE Urine Ketones NEGATIVE Urine Blood LARGE H Urine RBC (Auto) >182 11/17/19 11:39 Blood Blood Culture (PCR) - Final Staphylococcus Aureus 11/17/19 12:57 Blood Blood Culture (PCR) - Final Staphylococcus Aureus 11/13/19 16:30 Diaz Catheter Urine Culture - Final Mrsa (Meth Resis Staph Aureus) Impressions: Wrist X-Ray 11/12/19 22:48 IMPRESSION: No acute osseous findings. Head CT 11/12/19 22:57 IMPRESSION: No acute intracranial findings. Possible expansile lesion in the sphenoid sinuses. Consider MRI. Abdomen Ultrasound 11/13/19 01:08 IMPRESSION: Minimal right hydronephrosis. Abdomen/Pelvis CT 11/15/19 00:00 IMPRESSION: Thick-walled decompressed urinary bladder with surrounding stranding. There is adjacent stranding in the extraperitoneal pelvis. Question cystitis Mild prominence of the renal collecting systems bilaterally with a small amount of perinephric and retroperitoneal inflammation. Question pyelonephritis. No obstructing stone is noted Worsening atelectasis or infiltrate in the left base Assessment and Plan - Diagnosis (1) Hematuria Qualifiers: Hematuria type: gross Qualified Code(s): R31.0 - Gross hematuria Is this a current diagnosis for this admission?: Yes Plan: No gross hematuria however blood clots noted in the urinary bag. On continuous bladder irrigation. Likely due to cystitis/pyelonephritis. CT abdomen pelvis 11/15/2019 showed thick-walled urinary bladder with surrounding stranding, mild prominence of the renal collecting system bilaterally with a small amount of perinephric and retroperitoneal inflammation. No obstructing stone noted. Continue continuous bladder irrigation. Monitor H&H. Unfortunately no urologist consult available at [facility]. Patient will need outpatient neurology follow-up. (2) Bladder outlet obstruction Is this a current diagnosis for this admission?: Yes Plan: History of BPH. Currently Diaz catheter in. Continue tamsulosin. Avoid meds with anticholinergic side effects. Continue Diaz cath care. Bladder training before Diaz cath removal. If patient keeps having persistent urine retention after Diaz cath removal he would need to be discharged with Diaz cath until evaluated by urologist. (3) MRSA bacteremia Is this a current diagnosis for this admission?: Yes Plan: Persistent bacteremia. No blood cultures are also growing gram-positive cocci in clusters pending sensitivity. Likely source pyelonephritis, both urine and blood culture from admission positive for MRSA. Day 5 IV antibiotics. Day 3 IV vancomycin. Received 3 days of IV meropenem. TTE negative for any obvious sign of endocarditis. Given persistent MRSA bacteremia will consider ANANDA to rule out endocarditis. Continue IV vancomycin. Repeat urine and blood culture. (4) Coronary artery disease Qualifiers: Coronary Disease-Associated Artery/Lesion type: [place] artery [place] vs. transplanted heart: [place] heart Associated angina: without angina Qualified Code(s): I25.10 - Atherosclerotic heart disease of [place] coronary artery without angina pectoris Is this a current diagnosis for this admission?: Yes Plan: Denies any anginal symptoms. SPO2 WNL on RA. Vitals stable. Continue current regimen. (5) Hypertension Qualifiers: Hypertension type: essential hypertension Qualified Code(s): I10 - Essential (primary) hypertension Is this a current diagnosis for this admission?: Yes Plan: Euvolemic. Normotensive. Continue current regimen. Adjust meds as needed. Outpatient PCP follow-up. (6) UTI (urinary tract infection) Qualifiers: Urinary tract infection type: site unspecified Hematuria presence: with hematuria Qualified Code(s): N39.0 - Urinary tract infection, site not specified; R31.9 - Hematuria, unspecified Is this a current diagnosis for this admission?: Yes Plan: Complicated urinary tract infection. CT findings suggestive of bladder wall thickening and hydronephrosis and possible pyelonephritis. Urine culture positive for MRSA. Plan as per MRSA bacteremia. (7) Diabetes mellitus type 2 in nonobese Is this a current diagnosis for this admission?: Yes Plan: Controlled. Hemoglobin A1c 8.6. Continue diabetic diet, basal, prandial and correctional insulin. Hypoglycemic protocol. Accu-Chek. Restart home meds upon discharge. Outpatient PCP follow-up.
[2019-11-18] MEDS: TAMSULOSIN HCL 0.4 MG CAP.SR.24H PO SCH (18:07)
[2019-11-18] MEDS: INSULIN GLARGINE,HUM.REC.ANLOG 1,000 UNIT/10 ML VIAL SUBCUT SCH (21:35)
[2019-11-18] MEDS: AMLODIPINE BESYLATE 5 MG TABLET PO SCH (21:41)
[2019-11-19] MEDS: IPRATROPIUM BROMIDE 0.02% NEB 0.5 MG/2.5 ML AMPUL NEB SCH ×4 (00:39→23:55)
[2019-11-19] MEDS: LEVALBUTEROL HCL NEB 1.25 MG/3 ML AMPUL NEB SCH ×4 (00:39→23:55)
[2019-11-19] MEDS: VANCOMYCIN HCL 1,500 MG in DEXTROSE 5%-WATER 250 ML IV SCH ×3 (05:33→22:27)
[2019-11-19] MEDS: HEPARIN SOD (PORCINE) 5,000 UNIT/ML 1 ML VIAL SUBCUT SCH ×3 (05:34→22:28)
[2019-11-19 06:28] LABS: ABSOLUTE BASOPHILS # (AUTO) 0.1 10^3/uL (0.0-0.2); ABSOLUTE EOSINOPHILS # (AUTO) 0.1 10^3/uL (0.0-0.6); ABSOLUTE LYMPHOCYTES (AUTO) 1.5 10^3/uL (0.5-4.7); ABSOLUTE MONOCYTES (AUTO) 0.8 10^3/uL (0.1-1.4); ABSOLUTE NEUT (AUTO) 7.3 10^3/uL (1.7-8.2); EOSINOPHILS % (AUTO) 1.2 % (0-6); HEMATOCRIT 35.3 % (37.9-51.0); HEMOGLOBIN 11.8 g/dL (13.5-17.0); LYMPHOCYTES % (AUTO) 15.6 % (13-45); MEAN CORPUSCULAR HGB CONC 33.5 g/dL (32.0-36.0); MEAN CORPUSCULAR VOLUME 81 fl (80-97); MONOCYTES % (AUTO) 7.9 % (3-13); PLATELET COUNT 587 10^3/uL (150-450); RED BLOOD COUNT 4.37 10^6/uL (4.35-5.55); RED CELL DISTRIBUTION WIDTH 14.4 % (11.5-14.0); SEGMENTED NEUTROPHILS % (AUTO) 74.3 % (42-78); TOTAL CELLS COUNTED % (AUTO) 100 %; WHITE BLOOD COUNT 9.8 10^3/uL (4.0-10.5)
[2019-11-19 06:52] LABS: ANION GAP 10 (5-19); BLOOD UREA NITROGEN 15 mg/dL (7-20); CALCIUM 9.9 mg/dL (8.4-10.2); CARBON DIOXIDE 27 mmol/L (22-30); CHLORIDE 99 mmol/L (98-107); GLUCOSE 148 mg/dL (75-110); POTASSIUM 4.6 mmol/L (3.6-5.0)
[2019-11-19] MEDS ORDERED: LIDOCAINE 2% JELLY 30 ML TUBE ONE (07:19)
[2019-11-19] MEDS ORDERED: DIPHENHYDRAMINE HCL 50 MG/ML VIAL ONE (07:20)
[2019-11-19] MEDS ORDERED: NALOXONE HCL INJ/PF 0.4 MG/1 ML SDV ONE (07:20)
[2019-11-19] MEDS ORDERED: BENZOCAINE 20% AEROSOL SPRAY 60 GM ONE (07:20)
[2019-11-19] MEDS ORDERED: FENTANYL CITRATE INJ/PF 100 MCG/2 ML AMPUL ONE (07:20)
[2019-11-19] MEDS ORDERED: FLUMAZENIL INJ 0.5 MG/5 ML VIAL ONE (07:20)
[2019-11-19] MEDS: MIDAZOLAM 2 MG/2 ML INJ ONE ×2 (08:22→08:26)
[2019-11-19] MEDS: INSULIN LISPRO 100 UNIT/ML 3 ML VIAL SUBCUT SCH ×4 (08:43→22:14)
--- NOTE | 2019-11-19 10:45 | PDOC PROGRESS REPORT ---
Subjective Progress Note for:: 11/19/19 - ' Subjective:: 64-year-old man with DM2, hypertension, CAD, hypercholesterolemia who was recently admitted due to bronchitis and hyperglycemia. Presented to ED complaining of weakness x 2 weeks. On admission he had marked leukocytosis and blood cultures from 11/13 are positive for MRSA. His urine culture grew MRSA as well. A CT scan of abdomen and pelvis demonstrated perinephric, possible pyleonephritis/cystitis. There was right hydronephrosis noted on US. 11/17/2019. No acute events overnight. Patient resting in his recliner in no apparent distress, accompanied by his , still on bladder irrigation, hematuria seems to have resolved. Denies any chest pain, nausea, vomiting, diarrhea, constipation or any urinary symptoms. Alert and oriented x3. Cooperative with physical examination. P.o. tolerant. Having normal bowel movements. 11/18/2019. No acute events overnight. Comfortably sitting up in apparent distress. Denies any fever, chills, nausea, vomiting, diarrhea, constipation. P.o. tolerant. Unfortunately patient still having hematuria and repeat blood cultures are positive for gram-positive cocci in clusters. 11/19/2019. No acute events overnight. Hematuria resolved, patient comfortably sitting in bed no apparent distress. Waiting for his ANANDA. Family updated about ANANDA. Patient denies any fever, chills, nausea, vomiting, diarrhea, c onstipation. Reason For Visit: ACUTE URINARY RETENTION,URINARY TRACT INFECTION, Physical Exam Vital Signs: Temp Pulse Resp BP Pulse Ox 98.7 F 95 16 120/75 100 11/19/19 03:40 11/19/19 08:55 11/19/19 08:55 11/19/19 08:55 11/19/19 08:55 Intake & Output 11/18/19 11/19/19 11/20/19 06:59 06:59 06:59 Intake Total 1490 3254 200 Output Total 2350 1320 Balance -860 1934 200 Weight 97.5 kg 97.2 kg General appearance: PRESENT: no acute distress, well-developed, well-nourished Head exam: PRESENT: atraumatic, normocephalic Respiratory exam: PRESENT: clear to auscultation roma. ABSENT: rales, rhonchi, wheezes Cardiovascular exam: PRESENT: RRR. ABSENT: diastolic murmur, rubs, systolic murmur GI/Abdominal exam: PRESENT: normal bowel sounds, soft. ABSENT: distended, guarding, mass, organolmegaly, rebound, tenderness Extremities exam: PRESENT: full ROM. ABSENT: calf tenderness, clubbing, pedal edema Neurological exam: PRESENT: alert, awake, oriented to person, oriented to place, oriented to time, oriented to situation, CN II-XII grossly intact. ABSENT: motor sensory deficit Results Laboratory Results: 11/19/19 05:17 11/19/19 05:17 11/19/19 11/19/19 05:17 05:17 WBC 9.8 RBC 4.37 Hgb 11.8 L Hct 35.3 L MCV 81 MCH 27.0 MCHC 33.5 RDW 14.4 H Plt Count 587 H Seg Neutrophils % 74.3 Sodium 136.3 L Potassium 4.6 Chloride 99 Carbon Dioxide 27 Anion Gap 10 BUN 15 Creatinine 0.70 Est GFR ( Amer) > 60 Glucose 148 H Calcium 9.9 11/17/19 12:57 Blood Blood Culture (PCR) - Final Staphylococcus Aureus 11/17/19 11:39 Blood Blood Culture (PCR) - Final Staphylococcus Aureus Impressions: Wrist X-Ray 11/12/19 22:48 IMPRESSION: No acute osseous findings. Head CT 11/12/19 22:57 IMPRESSION: No acute intracranial findings. Possible expansile lesion in the sphenoid sinuses. Consider MRI. Abdomen Ultrasound 11/13/19 01:08 IMPRESSION: Minimal right hydronephrosis. Abdomen/Pelvis CT 11/15/19 00:00 IMPRESSION: Thick-walled decompressed urinary bladder with surrounding stranding. There is adjacent stranding in the extraperitoneal pelvis. Question cystitis Mild prominence of the renal collecting systems bilaterally with a small amount of perinephric and retroperitoneal inflammation. Question pyelonephritis. No obstructing stone is noted Worsening atelectasis or infiltrate in the left base Assessment and Plan - Diagnosis (1) Hematuria Qualifiers: Hematuria type: gross Qualified Code(s): R31.0 - Gross hematuria Is this a current diagnosis for this admission?: Yes Plan: Resolving. On continuous bladder irrigation. Likely due to cystitis/pyelonephritis. CT abdomen pelvis 11/15/2019 showed thick-walled urinary bladder with surrounding stranding, mild prominence of the renal collecting system bilaterally with a small amount of perinephric and retroperitoneal inflammation. No obstructing stone noted. Continue continuous bladder irrigation. Monitor H&H. Unfortunately no urologist consult available at [facility]. Patient will need outpatient neurology follow-up. (2) Bladder outlet obstruction Is this a current diagnosis for this admission?: Yes Plan: History of BPH. Currently Diaz catheter in. Continue tamsulosin. Avoid meds with anticholinergic side effects. Continue Diaz cath care. Bladder training before Diaz cath removal. If patient keeps having persistent urine retention after Diaz cath removal he would need to be discharged with Diaz cath until evaluated by urologist. (3) MRSA bacteremia Is this a current diagnosis for this admission?: Yes Plan: Persistent bacteremia. Likely source pyelonephritis, both urine and blood culture from admission positive for MRSA. Day 6 IV antibiotics. Day 4 IV vancomycin. Received 3 days of IV meropenem. TTE negative for any obvious sign of endocarditis. Pending ANANDA. Continue IV vancomycin. Repeat urine and blood culture. If ANANDA negative and patient is still having persistent bacteremia will do either CT or MRI of spine looking for any occult source of bacteremia. (4) Coronary artery disease Qualifiers: Coronary Disease-Associated Artery/Lesion type: [place] artery [place] vs. transplanted heart: [place] heart Associated angina: without angina Qualified Code(s): I25.10 - Atherosclerotic heart disease of [place] coronary artery without angina pectoris Is this a current diagnosis for this admission?: Yes Plan: Denies any anginal symptoms. SPO2 WNL on RA. Vitals stable. Continue current regimen. (5) Hypertension Qualifiers: Hypertension type: essential hypertension Qualified Code(s): I10 - Essential (primary) hypertension Is this a current diagnosis for this admission?: Yes Plan: Euvolemic. Normotensive. Continue current regimen. Adjust meds as needed. Outpatient PCP follow-up. (6) UTI (urinary tract infection) Qualifiers: Urinary tract infection type: site unspecified Hematuria presence: with hematuria Qualified Code(s): N39.0 - Urinary tract infection, site not specified; R31.9 - Hematuria, unspecified Is this a current diagnosis for this admission?: Yes Plan: Complicated urinary tract infection. CT findings suggestive of bladder wall thickening and hydronephrosis and possible pyelonephritis. Urine culture positive for MRSA. Plan as per MRSA bacteremia. (7) Diabetes mellitus type 2 in nonobese Is this a current diagnosis for this admission?: Yes Plan: Controlled. Hemoglobin A1c 8.6. Continue diabetic diet, basal, prandial and correctional insulin. Hypoglycemic protocol. Accu-Chek. Restart home meds upon discharge. Outpatient PCP follow-up.
[2019-11-19] MEDS: UMECLIDINIUM BROMIDE 62.5 MCG/DOSE IH SCH (11:57)
[2019-11-19] MEDS: DOCUSATE SODIUM 100 MG CAPSULE PO SCH ×2 (14:05→17:43)
[2019-11-19] MEDS: LOSARTAN POTASSIUM 50 MG TABLET PO SCH ×2 (14:06→22:26)
[2019-11-19] MEDS: METFORMIN HCL 500 MG TABLET PO SCH ×2 (14:06→18:18)
[2019-11-19] MEDS: FAMOTIDINE 20 MG TABLET PO SCH ×2 (14:06→22:26)
[2019-11-19] MEDS ORDERED: PROPOFOL INJ 200 MG/20 ML VIAL IV ONE (15:14)
--- NOTE | 2019-11-19 16:30 | XCELERA REPORT ---
Study ID: [id number] [address] [id number] Transesophageal Echocardiogram Report Name: MIC DIAZ Age: 64 yrs Gender: Male : 1955 Patient Status: Inpatient Patient Location: [address] [place] [address] Study Date: 11/19/2019 03:24 PM History: Bacteremia Reason For Study: BACTEREMIA Ordering Physician: LONNIE LUGO Performed By: Mami Ivy Interpretation Summary This degree of valvular regurgitation is within normal limits. There is no evidence of a mass or vegetation. This does not rule out endocarditis. Left ventricular systolic function is normal. Ejection Fraction = >55%. The right ventricle is normal in size and function. This degree of valvular regurgitation is within normal limits. There is no evidence of a mass or vegetation. This does not rule out endocarditis. Procedure A complete two-dimensional transesophageal echocardiogram was performed (2D, spectral and color flow Doppler). Informed consent for Transesophageal Echocardiogram, and use of a contrast agent as needed, was obtained prior to the procedure. The patient was brought to the OR in a fasting state. An intravenous line was placed. A topical anesthetic agent was used for oropharangeal anesthesia. A bite block was inserted. The patient's vital signs, including blood pressure, heart rate, pulse oximetry and cardiac rhythm were monitored thoughout the procedure. The transesophageal probe was passed without difficulty. The usual views were obtained; basal, mid-esophageal, transgastric and aortic views. The patient tolerated the procedure well without evidence of orophangeal or esophageal trauma. Subsequent to all the images being obtained the probe was removed with out trauma. IV conscious sedation was administered using Per Anesthesia. Left Ventricle The left ventricle is grossly normal size. There is no thrombus. There is borderline concentric left ventricular hypertrophy. Left ventricular systolic function is normal. Ejection Fraction = >55%. The left ventricular wall motion is normal. Right Ventricle The right ventricle is normal in size and function. Atria The interatrial septum is intact with no evidence for an atrial septal defect. The left atrial size is normal. No left atrial mass or thrombus visualized. Right atrial size is normal. Mitral Valve The mitral valve is grossly normal. There is no vegetation seen on the mitral valve. There is no mitral valve stenosis. There is mild mitral regurgitation. Tricuspid Valve The tricuspid valve is not well visualized, but is grossly normal. There is no tricuspid valve vegetation. There is no tricuspid stenosis. There is trace tricuspid regurgitation. Aortic Valve The aortic valve is trileaflet. The aortic valve opens well. There is no aortic valvular vegetation. No hemodynamically significant valvular aortic stenosis. No aortic regurgitation is present. Pulmonic Valve The pulmonic valve is not well visualized. Arteries The aortic root is not well visualized but is probably normal size. Pericardium There is no pericardial effusion. Electronically signed by: Palomo Roman 11/19/2019 04:29 PM CC: LONNIE LUGO Anil
[2019-11-19] MEDS: TAMSULOSIN HCL 0.4 MG CAP.SR.24H PO SCH (17:43)
[2019-11-19] MEDS: ACETAMINOPHEN 325 MG TABLET PO PRN (18:26)
[2019-11-19] MEDS: INSULIN GLARGINE,HUM.REC.ANLOG 1,000 UNIT/10 ML VIAL SUBCUT SCH (22:14)
[2019-11-19] MEDS: AMLODIPINE BESYLATE 5 MG TABLET PO SCH (22:26)
[2019-11-20] MEDS: LEVALBUTEROL HCL NEB 0.63 MG/3 ML AMPUL NEB PRN (01:48)
[2019-11-20] MEDS: VANCOMYCIN HCL 1,500 MG in DEXTROSE 5%-WATER 250 ML IV SCH ×3 (05:38→21:34)
[2019-11-20] MEDS: HEPARIN SOD (PORCINE) 5,000 UNIT/ML 1 ML VIAL SUBCUT SCH ×3 (05:39→23:44)
[2019-11-20 06:38] LABS: ABSOLUTE BASOPHILS # (AUTO) 0.1 10^3/uL (0.0-0.2); ABSOLUTE EOSINOPHILS # (AUTO) 0.1 10^3/uL (0.0-0.6); ABSOLUTE LYMPHOCYTES (AUTO) 1.2 10^3/uL (0.5-4.7); ABSOLUTE MONOCYTES (AUTO) 0.6 10^3/uL (0.1-1.4); ABSOLUTE NEUT (AUTO) 7.6 10^3/uL (1.7-8.2); BASOPHILS % (AUTO) 1.2 % (0-2); EOSINOPHILS % (AUTO) 0.7 % (0-6); HEMOGLOBIN 11.6 g/dL (13.5-17.0); MEAN CORPUSCULAR HEMOGLOBIN 26.9 pg (27.0-33.4); MEAN CORPUSCULAR HGB CONC 33.1 g/dL (32.0-36.0); MEAN CORPUSCULAR VOLUME 81 fl (80-97); MONOCYTES % (AUTO) 6.5 % (3-13); PLATELET COUNT 535 10^3/uL (150-450); RED BLOOD COUNT 4.32 10^6/uL (4.35-5.55); RED CELL DISTRIBUTION WIDTH 13.8 % (11.5-14.0); SEGMENTED NEUTROPHILS % (AUTO) 78.6 % (42-78); TOTAL CELLS COUNTED % (AUTO) 100 %; WHITE BLOOD COUNT 9.6 10^3/uL (4.0-10.5)
[2019-11-20 06:55] LABS: ANION GAP 7 (5-19); BLOOD UREA NITROGEN 13 mg/dL (7-20); CALCIUM 9.6 mg/dL (8.4-10.2); CARBON DIOXIDE 26 mmol/L (22-30); CHLORIDE 102 mmol/L (98-107); GLUCOSE 157 mg/dL (75-110); POTASSIUM 4.2 mmol/L (3.6-5.0)
--- NOTE | 2019-11-20 07:57 | Progress Note ---
Provider Note Provider Note: [facility] Telephone Advice - Follow Up Chart reviewed. Patient is a 64-year-old man followed due to MRSA bacteremia suspected to be from urinary tract as he presented with urinary retention and hematuria, signs and symptoms of pyelonephritis. Blood cultures from 11/13, 11/17 and 11/18 are positive for Staphylococcus aureus. Vancomycin trough is adequate. He has continuous bladder irrigations with improvement in hematuria. TTE negative, awaiting ANANDA. Per notes, patient seems to be stable. Vital Signs: Temp Pulse Resp BP Pulse Ox 97.3 F 100 19 128/74 H 100 11/20/19 03:19 11/20/19 03:19 11/20/19 03:19 11/20/19 03:19 11/20/19 03:19 Intake & Output 11/19/19 11/20/19 11/21/19 06:59 06:59 06:59 Intake Total 3254 1050 Output Total 1320 2855 Balance 1934 -1805 Weight 97.2 kg 98.8 kg Weight/Height Weight 98.8 kg Height 6 ft 6 in Laboratories: 11/20/19 05:36 11/20/19 05:36 MCV 81 fl (80-97) 11/20/19 05:36 MCH 26.9 pg (27.0-33.4) L 11/20/19 05:36 MCHC 33.1 g/dL (32.0-36.0) 11/20/19 05:36 RDW 13.8 % (11.5-14.0) 11/20/19 05:36 Seg Neutrophils % 78.6 % (42-78) H 11/20/19 05:36 VBG pH 7.38 (7.30-7.42) 11/13/19 02:16 VBG pCO2 39.1 mmHg (35-63) 11/13/19 02:16 VBG HCO3 22.5 mmol/L (20-32) 11/13/19 02:16 VBG Base Excess -2.4 mmol/L 11/13/19 02:16 Chloride 102 mmol/L (98-107) 11/20/19 05:36 Carbon Dioxide 26 mmol/L (22-30) 11/20/19 05:36 Anion Gap 7 (5-19) 11/20/19 05:36 Est GFR ( Amer) > 60 (>60) 11/20/19 05:36 Glucose 157 mg/dL (75-110) H 11/20/19 05:36 Lactic Acid 1.0 mmol/L (0.7-2.1) 11/13/19 12:49 Calcium 9.6 mg/dL (8.4-10.2) 11/20/19 05:36 Magnesium 1.9 mg/dL (1.6-2.3) 11/14/19 05:08 Total Bilirubin 0.5 mg/dL (0.2-1.3) 11/12/19 21:25 AST 40 U/L (17-59) 11/12/19 21:25 Alkaline Phosphatase 208 U/L (38-126) H 11/12/19 21:25 Total Protein 7.5 g/dL (6.3-8.2) 11/12/19 21:25 Albumin 3.4 g/dL (3.5-5.0) L 11/12/19 21:25 Urine Color YELLOW 11/18/19 08:00 Urine Appearance CLOUDY 11/18/19 08:00 Urine pH 6.0 (5.0-9.0) 11/18/19 08:00 Ur Specific [place] 1.010 11/18/19 08:00 Urine Protein 100 mg/dL (NEGATIVE) H 11/18/19 08:00 Urine Glucose (UA) NEGATIVE mg/dL (NEGATIVE) 11/18/19 08:00 Urine Ketones NEGATIVE mg/dL (NEGATIVE) 11/18/19 08:00 Urine Blood LARGE (NEGATIVE) H 11/18/19 08:00 Urine Nitrite NEGATIVE (NEGATIVE) 11/12/19 23:48 Ur Leukocyte Esterase LARGE (NEGATIVE) H 11/12/19 23:48 Urine WBC (Auto) >182 /HPF 11/12/19 23:48 Urine RBC (Auto) >182 /HPF 11/18/19 08:00 11/18/19 11:25 Blood Blood Culture (PCR) - Final Staphylococcus Aureus 11/18/19 11:35 Blood Blood Culture (PCR) - Final Staphylococcus Aureus 11/17/19 12:57 Blood Blood Culture (PCR) - Final Staphylococcus Aureus 11/17/19 11:39 Blood Blood Culture (PCR) - Final Staphylococcus Aureus 11/13/19 Blood MRSA Radiology: Wrist X-Ray 11/12/19 22:48 IMPRESSION: No acute osseous findings. Head CT 11/12/19 22:57 IMPRESSION: No acute intracranial findings. Possible expansile lesion in the sphenoid sinuses. Consider MRI. Abdomen Ultrasound 11/13/19 01:08 IMPRESSION: Minimal right hydronephrosis. Abdomen/Pelvis CT 11/15/19 00:00 IMPRESSION: Thick-walled decompressed urinary bladder with surrounding stranding. There is adjacent stranding in the extraperitoneal pelvis. Question cystitis Mild prominence of the renal collecting systems bilaterally with a small amount of perinephric and retroperitoneal inflammation. Question pyelonephritis. No obstructing stone is noted Worsening atelectasis or infiltrate in the left base Assessment and Recommendations: Patient with MRSA bacteremia since 11/13 with adequate vancomycin trough. Source seems to be the urinary tract (previous blood cultures earlier this month were negative). Hematuria seems to have improved per notes, but he continues with urinary retention. MRI of his back would be indicated at this time to rule out epidural abscess. ANANDA is pending. As this is a complicated bacteremia, he will likely need 4-6 weeks of antibiotics. Can repeat blood cultures today, if persistent bacteremia and if ANANAD is negative, may consider to transfer as he will need further evaluation by urology, ID, etc in order to better identify the source and control it. If any central lines or catheter, please exchange. Assess for other possible metastatic foci of infection. Please call if updates or questions. Jess Soto MD [facility] [phone]
[2019-11-20] MEDS: IPRATROPIUM BROMIDE 0.02% NEB 0.5 MG/2.5 ML AMPUL NEB SCH ×3 (08:42→23:44)
[2019-11-20] MEDS: LEVALBUTEROL HCL NEB 1.25 MG/3 ML AMPUL NEB SCH ×3 (08:42→23:44)
--- NOTE | 2019-11-20 10:50 | RADIOLOGY REPORT (SQ) ---
EXAM DESCRIPTION: PICC INSERTION; FLUORO/CV PLACEMENT; U/S GUIDE FOR VASCULAR ACCESS COMPLETED DATE/TIME: 11/20/2019 10:11 am REASON FOR STUDY: [facility] IV antibiotics; IV ABX N10 ACUTE PYELONEPHRITIS D68.2 HEREDITARY DEFICI ENCY OF OTHER CLOTTING FACTORS R10.30 LOWER ABDOMINAL PAIN, UNSPECIFIED COMPARISON: 11/13/2011. FLUOROSCOPY TIME: 18 seconds 2 images saved to PACS. TECHNIQUE: Fluoroscopic and ultrasound guided PICC placement. LIMITATIONS: None. PROCEDURE: After written consent and assessment were obtained, the patient was brought into the fluo roscopy room and placed supine on the table. Ultrasound evaluation of potential access sites were per formed. After successfully identifying a patent left basilic vein, the left arm was prepped and drape d in a sterile fashion along with the ultrasound probe. The entry site was anesthetized with 1% lidoc nettie. A 21 gauge 7 cm needle was advanced through the skin and into the basilic vein under live ultra sound guidance. An ultrasound image was saved to PACS confirming access site. A .018 guide wire was then inserted through the needle and into the venous system. The needle was then removed and an 11 b lade scalpel was used to make a 1cm skin incision. A 5 fr peel-away sheath was advanced over the wir e and into the venous system. A measurement was then made using the existing wire and live fluoroscop ic guidance. The wire was then removed and trimmed. The PICC was advanced through the peel-away sheat h and into the venous system. The peel-away sheath was removed and the catheter was adhered to the pa tients arm with a stat lock. The catheter was then aspirated and flushed and a sterile bandage was pl aced over the access site. A fluoroscopic spot image was saved to PACS confirming the catheter tip w ithin the superior vena cava. IMPRESSION: SUCCESSFUL PLACEMENT OF A 5 FR DUAL LUMEN 41 CM PICC IN THE LEFT BASILIC VEIN. COMMENT: Patient medication list reviewed: Yes- Quality ID# 130:Eligible professional attests to doc umenting in the medical record they obtained, updated, or reviewed the patient's current medications. . Quality ID 145: Final reports for procedures using fluoroscopy that document radiation exposure kev yuniel, or exposure time and number of fluorographic images (if radiation exposure indices are not avail able) Quality ID #76: The patient was prepped and draped using maximum sterile barrier technique including cap, mask, sterile gown, sterile gloves, a large sterile sheet, hand hygiene, and 2% Chlorhexidine fo r cutaneous antisepsis. When ultrasound is used, sterile ultrasound techniques are followed requiring sterile gel and sterile probes. TECHNICAL DOCUMENTATION: JOB ID: [id number] 2010 [employer]- All Rights Reserved rev-02/07 Reading location - IP/workstation name: [email or web address]
[2019-11-20] MEDS: INSULIN LISPRO 100 UNIT/ML 3 ML VIAL SUBCUT SCH ×4 (11:02→23:45)
[2019-11-20] MEDS: LOSARTAN POTASSIUM 50 MG TABLET PO SCH ×2 (11:03→21:25)
[2019-11-20] MEDS: UMECLIDINIUM BROMIDE 62.5 MCG/DOSE IH SCH (11:03)
[2019-11-20] MEDS: DOCUSATE SODIUM 100 MG CAPSULE PO SCH ×2 (11:03→18:23)
[2019-11-20] MEDS: FAMOTIDINE 20 MG TABLET PO SCH ×2 (11:04→21:25)
[2019-11-20] MEDS: METFORMIN HCL 500 MG TABLET PO SCH ×2 (11:04→18:23)
--- NOTE | 2019-11-20 15:08 | PDOC PROGRESS REPORT ---
Subjective Progress Note for:: 11/20/19 Subjective:: 64-year-old man with DM2, hypertension, CAD, hypercholesterolemia who was recently admitted due to bronchitis and hyperglycemia. Presented to ED complaining of weakness x 2 weeks. On admission he had marked leukocytosis and blood cultures from 11/13 are positive for MRSA. His urine culture grew MRSA as well. A CT scan of abdomen and pelvis demonstrated perinephric, possible pyleonephritis/cystitis. There was right hydronephrosis noted on US. 11/17/2019. No acute events overnight. Patient resting in his recliner in no apparent distress, accompanied by his , still on bladder irrigation, hematuria seems to have resolved. Denies any chest pain, nausea, vomiting, diarrhea, constipation or any urinary symptoms. Alert and oriented x3. Cooperative with physical examination. P.o. tolerant. Having normal bowel movements. 11/18/2019. No acute events overnight. Comfortably sitting up in apparent distress. Denies any fever, chills, nausea, vomiting, diarrhea, constipation. P.o. tolerant. Unfortunately patient still having hematuria and repeat blood cultures are positive for gram-positive cocci in clusters. 11/19/2019. No acute events overnight. Hematuria resolved, patient comfortably sitting in bed no apparent distress. Waiting for his ANANDA. Family updated about ANANDA. Patient denies any fever, chills, nausea, vomiting, diarrhea, const ipation. 11/20/2019. No acute events overnight. Patient resting in bed no apparent distress. Denies any fever, chills, nausea, vomiting, diarrhea, constipation. Unfortunate patient is still having hematuria once bladder irrigation is held, his new blood culture from 11/19/2019 is again positive for MSSA. Reason For Visit: ACUTE URINARY RETENTION,URINARY TRACT INFECTION, Physical Exam Vital Signs: Temp Pulse Resp BP Pulse Ox 97.7 F 103 H 16 113/55 L 97 11/20/19 11:57 11/20/19 11:57 11/20/19 11:57 11/20/19 11:57 11/20/19 11:57 Intake & Output 11/19/19 11/20/19 11/21/19 06:59 06:59 06:59 Intake Total 3254 1050 460 Output Total 1320 2855 1300 Balance 1934 -1805 -840 Weight 97.2 kg 98.8 kg General appearance: PRESENT: no acute distress, well-developed, well-nourished Head exam: PRESENT: atraumatic, normocephalic Respiratory exam: PRESENT: clear to auscultation roma. ABSENT: rales, rhonchi, wheezes Cardiovascular exam: PRESENT: RRR. ABSENT: diastolic murmur, rubs, systolic murmur GI/Abdominal exam: PRESENT: normal bowel sounds, soft. ABSENT: distended, guarding, mass, organolmegaly, rebound, tenderness Neurological exam: PRESENT: alert, awake, oriented to person, oriented to place, oriented to time, oriented to situation, CN II-XII grossly intact. ABSENT: motor sensory deficit Skin exam: PRESENT: abrasion - Right gluteal fold., dry, intact, warm. ABSENT: cyanosis, rash Results Laboratory Results: 11/20/19 05:36 11/20/19 05:36 11/20/19 11/20/19 05:36 05:36 WBC 9.6 RBC 4.32 L Hgb 11.6 L Hct 35.0 L MCV 81 MCH 26.9 L MCHC 33.1 RDW 13.8 Plt Count 535 H Seg Neutrophils % 78.6 H Sodium 135.4 L Potassium 4.2 Chloride 102 Carbon Dioxide 26 Anion Gap 7 BUN 13 Creatinine 0.65 Est GFR ( Amer) > 60 Glucose 157 H Calcium 9.6 11/19/19 09:56 Blood Blood Culture (PCR) - Final Staphylococcus Aureus 11/17/19 12:57 Blood Blood Culture (PCR) - Final Staphylococcus Aureus 11/17/19 12:57 Blood Blood Culture - Final Mrsa (Meth Resis Staph Aureus) 11/17/19 11:39 Blood Blood Culture (PCR) - Final Staphylococcus Aureus 11/17/19 11:39 Blood Blood Culture - Final Mrsa (Meth Resis Staph Aureus) 11/18/19 11:25 Blood Blood Culture (PCR) - Final Staphylococcus Aureus 11/18/19 11:35 Blood Blood Culture (PCR) - Final Staphylococcus Aureus Impressions: Wrist X-Ray 11/12/19 22:48 IMPRESSION: No acute osseous findings. Head CT 11/12/19 22:57 IMPRESSION: No acute intracranial findings. Possible expansile lesion in the sphenoid sinuses. Consider MRI. Abdomen Ultrasound 11/13/19 01:08 IMPRESSION: Minimal right hydronephrosis. Abdomen/Pelvis CT 11/15/19 00:00 IMPRESSION: Thick-walled decompressed urinary bladder with surrounding stranding. There is adjacent stranding in the extraperitoneal pelvis. Question cystitis Mild prominence of the renal collecting systems bilaterally with a small amount of perinephric and retroperitoneal inflammation. Question pyelonephritis. No obstructing stone is noted Worsening atelectasis or infiltrate in the left base Guidance Fluoroscopy 11/20/19 00:00 IMPRESSION: SUCCESSFUL PLACEMENT OF A 5 FR DUAL LUMEN 41 CM PICC IN THE LEFT BASILIC VEIN. Interventional Vascular Procedure 11/20/19 00:00 IMPRESSION: SUCCESSFUL PLACEMENT OF A 5 FR DUAL LUMEN 41 CM PICC IN THE LEFT BASILIC VEIN. PICC Line Insertion 11/20/19 00:00 IMPRESSION: SUCCESSFUL PLACEMENT OF A 5 FR DUAL LUMEN 41 CM PICC IN THE LEFT BASILIC VEIN. Assessment and Plan - Diagnosis (1) Hematuria Qualifiers: Hematuria type: gross Qualified Code(s): R31.0 - Gross hematuria Is this a current diagnosis for this admission?: Yes Plan: Patient is still having persistent hematuria once continuous bladder irrigation is held. Likely due to cystitis/pyelonephritis. CT abdomen pelvis 11/15/2019 showed thick-walled urinary bladder with surrounding stranding, mild prominence of the renal collecting system bilaterally with a small amount of perinephric and retroperitoneal inflammation. No obstructing stone noted. Continue continuous bladder irrigation. Monitor H&H. Unfortunately no urologist consult available at [facility]. Patient will need outpatient neurology follow-up. 11/20/2019. I contacted [facility] talked to urologist Dr. Felipe Yung urologist for possible transfer. Discussed the case with Dr. Yung, who stated that based on the fact that patient's hemoglobin has been stable on this admission he thinks his hematuria is minimum and does not require transfer at this point. He stated that patient could be discharged home with a Diaz catheter and follow-up with him next week, but if after discharge patient develops acute urine retention or gross hematuria he wants the patient to come to [facility] emergency department immediately to be admitted. Miriam ent and family notified of the discussion with urologist and they agree with the plan. (2) MRSA bacteremia Is this a current diagnosis for this admission?: Yes Plan: Persistent bacteremia. Likely source pyelonephritis, both urine and blood culture from admission positive for MRSA. Day 7 IV antibiotics. Day 5 IV vancomycin. Received 3 days of IV meropenem. TTE and ANANDA both negative for any sign of endocarditis. Note. On 11/20/2019 I discussed the case with our radiology department about possible occult infection which could be the source of persistent bacteremia, radiologist therapeutic recreation director reviewed all images done on this hospitalization. As per radiologist CT abdomen pelvis does not appear to show any occult pocket of in fection, and also he also stated that believe that there is any sign of spinal epidural abscess based on CT abdomen and pelvis. No CT chest available but he stated that based on the chest x-ray he does not think there is any occult infection. He stated that pursuing further imaging such as MRI of the spine not reveal any further information. Patient does complain of chronic lower back pain and bilateral lower extremity generalized weakness however denies any history of back trauma or any back surgery. I also did head to toe physical examination of the patient with the primary nurse and could not find any thing that could have explain his recurrent bacteremia. His spinal examination is benign, he does not have any point tenderness over his entire spine or paraspinal regions except for bilateral redness over sacral region, there is no swelling or any abscesses over his axillary or inguinal regions, only finding was small skin abrasion on the left gluteal region which we will culture. Patient does not have any history of orthopedic surgery or any prosthetic implants however he does have cardiac stents. The only other foreign body currently is a Diaz catheter and a PICC line which was placed on 11/20/2019. We will obtain upper and lower spine MRI to rule out any spinal epidural abscesses or osteomyelitis. Continue IV vancomycin. Repeat urine and blood culture. We will attempt to transfer patient to another hospital if possible. (3) Bladder outlet obstruction Is this a current diagnosis for this admission?: Yes Plan: History of BPH. Currently Diaz catheter in. Continue tamsulosin. Avoid meds with anticholinergic side effects. Continue Diaz cath care. Bladder training before Diaz cath removal. (4) Coronary artery disease Qualifiers: Coronary Disease-Associated Artery/Lesion type: [place] artery [place] vs. transplanted heart: [place] heart Associated angina: without angina Qualified Code(s): I25.10 - Atherosclerotic heart disease of [place] coronary artery withou t angina pectoris Is this a current diagnosis for this admission?: Yes Plan: Denies any anginal symptoms. SPO2 WNL on RA. Vitals stable. Continue current regimen. (5) Hypertension Qualifiers: Hypertension type: essential hypertension Qualified Code(s): I10 - Essential (primary) hypertension Is this a current diagnosis for this admission?: Yes Plan: Euvolemic. Normotensive. Continue current regimen. Adjust meds as needed. Outpatient PCP follow-up. (6) UTI (urinary tract infection) Qualifiers: Urinary tract infection type: site unspecified Hematuria presence: with hematuria Qualified Code(s): N39.0 - Urinary tract infection, site not specified; R31.9 - Hematuria, unspecified Is this a current diagnosis for this admission?: Yes Plan: Complicated urinary tract infection. CT findings suggestive of bladder wall thickening and hydronephrosis and possib le pyelonephritis. Urine culture positive for MRSA. Plan as per MRSA bacteremia. (7) Diabetes mellitus type 2 in nonobese Is this a current diagnosis for this admission?: Yes Plan: Controlled. Hemoglobin A1c 8.6. Continue diabetic diet, basal, prandial and correctional insulin. Hypoglycemic protocol. Accu-Chek. Restart home meds upon discharge. Outpatient PCP follow-up.
[2019-11-20] MEDS: ACETAMINOPHEN 325 MG TABLET PO PRN ×2 (18:21→23:48)
[2019-11-20] MEDS: TAMSULOSIN HCL 0.4 MG CAP.SR.24H PO SCH (18:22)
[2019-11-20] MEDS: AMLODIPINE BESYLATE 5 MG TABLET PO SCH (21:25)
[2019-11-20] MEDS: INSULIN GLARGINE,HUM.REC.ANLOG 1,000 UNIT/10 ML VIAL SUBCUT SCH (21:28)
[2019-11-20] MEDS: NORMAL SALINE 10 ML SDV (SCHEDULED) IV SCH (21:31)
[2019-11-21] MEDS: HEPARIN SOD (PORCINE) 5,000 UNIT/ML 1 ML VIAL SUBCUT SCH ×4 (06:19→22:48)
[2019-11-21] MEDS: VANCOMYCIN HCL 1,500 MG in DEXTROSE 5%-WATER 250 ML IV SCH ×3 (06:20→22:14)
[2019-11-21] MEDS: INSULIN LISPRO 100 UNIT/ML 3 ML VIAL SUBCUT SCH ×4 (08:07→22:16)
[2019-11-21] MEDS: IPRATROPIUM BROMIDE 0.02% NEB 0.5 MG/2.5 ML AMPUL NEB SCH ×3 (08:33→23:04)
[2019-11-21] MEDS: LEVALBUTEROL HCL NEB 1.25 MG/3 ML AMPUL NEB SCH ×3 (08:33→23:04)
[2019-11-21] MEDS: LOSARTAN POTASSIUM 50 MG TABLET PO SCH ×2 (09:28→22:15)
[2019-11-21] MEDS: FAMOTIDINE 20 MG TABLET PO SCH ×2 (09:28→22:15)
[2019-11-21] MEDS: DOCUSATE SODIUM 100 MG CAPSULE PO SCH ×2 (09:28→17:57)
[2019-11-21] MEDS: METFORMIN HCL 500 MG TABLET PO SCH ×2 (09:28→18:01)
[2019-11-21] MEDS: UMECLIDINIUM BROMIDE 62.5 MCG/DOSE IH SCH (09:28)
[2019-11-21] MEDS: NORMAL SALINE 10 ML SDV (AFTER EACH USE) IV PRN ×3 (09:29→15:54)
[2019-11-21] MEDS: NORMAL SALINE 10 ML SDV (SCHEDULED) IV SCH ×2 (09:29→22:18)
[2019-11-21] MEDS: ACETAMINOPHEN 325 MG TABLET PO PRN ×2 (13:33→20:23)
--- NOTE | 2019-11-21 14:13 | RADIOLOGY REPORT (SQ) ---
EXAM DESCRIPTION: MRI LUMBAR SPINE WITHOUT COMPLETED DATE/TIME: 11/21/2019 1:19 pm REASON FOR STUDY: Persistent bacteremia. Rule out SPA N10 ACUTE PYELONEPHRITIS D68.2 HEREDITARY D EFICIENCY OF OTHER CLOTTING FACTORS R10.30 LOWER ABDOMINAL PAIN, UNSPECIFIED COMPARISON: None. TECHNIQUE: Sagittal and Axial imaging includes T1, T2, STIR and gradient echo sequences. Coronal T2/ HASTE imaging. LIMITATIONS: None. FINDINGS: VISUALIZED UPPER ABDOMEN: Limited evaluation. No acute or suspicious findings suggested. SEGMENTATION: No transitional anatomy. The lowest well-developed disc space is labeled L5-S1. ALIGNMENT: Anatomic. VERTEBRAE: Intact. BONE MARROW: Abnormal marrow signal in the L4 and L5 vertebrae centered on the L4-L5 disc. Decreased signal on T1 and increased signal on STIR imaging. DISC SIGNAL: Increased T2 and STIR signal of the L4-L5 disc. POSTERIOR ELEMENTS: Generally intact. Facet arthropathy in the lower lumbar spine. No pars defect evident. HARDWARE: None in the spine. CORD AND CONUS: Normal in size and signal intensity. Conus at the appropriate level. SOFT TISSUES: No aortic aneurysm seen. No bulky retroperitoneal adenopathy or mass. No paraspinal mas s or fluid. L1-L2: No significant spinal stenosis or exit foraminal stenosis. L2-L3: No significant spinal stenosis or exit foraminal stenosis. L3-L4: No significant spinal stenosis or exit foraminal stenosis. L4-L5: No significant spinal stenosis or exit foraminal stenosis. L5-S1: No significant spinal stenosis or exit foraminal stenosis. LOWER THORACIC: Incompletely imaged. No stenosis seen. SACRUM: Visualized upper sacrum intact. OTHER: No other significant findings. IMPRESSION: ABNORMAL SIGNAL OF THE L4-L5 DISC WITH ADJACENT ABNORMAL MARROW SIGNAL IN THE L4 AND L5 VERTEBRAE. FINDINGS ARE CONCERNING FOR DISCITIS AND OSTEOMYELITIS. EVALUATION SOMEWHAT LIMITED DUE TO LACK OF INTRAVENOUS CONTRAST. IF FURTHER CONFIRMATION IS REQUIRED, THEN WOULD OBTAIN POSTCONTRAST IMAGING. TECHNICAL DOCUMENTATION: JOB ID: [id number] 2010 [employer]- All Rights Reserved Reading location - IP/workstation name: [email or web address]
--- NOTE | 2019-11-21 14:15 | RADIOLOGY REPORT (SQ) ---
EXAM DESCRIPTION: MRI THORACIC SPINE WITHOUT COMPLETED DATE/TIME: 11/21/2019 1:19 pm REASON FOR STUDY: Persistent bacteremia. Rule out SPA N10 ACUTE PYELONEPHRITIS D68.2 HEREDITARY D EFICIENCY OF OTHER CLOTTING FACTORS R10.30 LOWER ABDOMINAL PAIN, UNSPECIFIED COMPARISON: None. TECHNIQUE: Sagittal and Axial imaging includes T1, T2, STIR and gradient echo sequences. LIMITATIONS: Motion artifact. FINDINGS: LOCALIZER: No worrisome findings. ALIGNMENT: Normal. VERTEBRAE: Intact. BONE MARROW: Normal. No marrow replacement or reactive changes. HARDWARE: None in the spine. CORD: Normal in size and signal intensity. SOFT TISSUES: No soft tissue masses. THORACIC DISCS T1-T12: No significant spinal stenosis or exit foraminal stenosis. LOWER CERVICAL: Incompletely imaged. No significant spinal stenosis or exit foraminal stenosis. UPPER LUMBAR: Incompletely imaged. No significant spinal stenosis or exit foraminal stenosis. OTHER: No other significant finding. IMPRESSION: STUDY LIMITED DUE TO MOTION ARTIFACT. NO GROSS ABNORMALITIES. TECHNICAL DOCUMENTATION: JOB ID: [id number] 2010 [employer]- All Rights Reserved Reading location - IP/workstation name: [email or web address]
--- NOTE | 2019-11-21 16:56 | PDOC PROGRESS REPORT ---
Subjective Progress Note for:: 11/21/19 Subjective:: 64-year-old man with DM2, hypertension, CAD, hypercholesterolemia who was recently admitted due to bronchitis and hyperglycemia. Presented to ED complaining of weakness x 2 weeks. On admission he had marked leukocytosis and blood cultures from 11/13 are positive for MRSA. His urine culture grew MRSA as well. A CT scan of abdomen and pelvis demonstrated perinephric, possible pyleonephritis/cystitis. There was right hydronephrosis noted on US. 11/17/2019. No acute events overnight. Patient resting in his recliner in no apparent distress, accompanied by his , still on bladder irrigation, hematuria seems to have resolved. Denies any chest pain, nausea, vomiting, diarrhea, constipation or any urinary symptoms. Alert and oriented x3. Cooperative with physical examination. P.o. tolerant. Having normal bowel movements. 11/18/2019. No acute events overnight. Comfortably sitting up in apparent distress. Denies any fever, chills, nausea, vomiting, diarrhea, constipation. P.o. tolerant. Unfortunately patient still having hematuria and repeat blood cultures are positive for gram-positive cocci in clusters. 11/19/2019. No acute events overnight. Hematuria resolved, patient comfortably sitting in bed no apparent distress. Waiting for his ANANDA. Family updated about ANANDA. Patient denies any fever, chills, nausea, vomiting, diarrhea, const ipation. 11/20/2019. No acute events overnight. Patient resting in bed no apparent distress. Denies any fever, chills, nausea, vomiting, diarrhea, constipation. Unfortunate patient is still having hematuria once bladder irrigation is held, his new blood culture from 11/19/2019 is again positive for MSSA. 11/21/2019. No acute events overnight. Patient comfortably sitting up in apparent distress. Patient had his MRI done today which is highly suspicion for vertebral osteomyelitis however MRI was not done with contrast and the results not conclusive. Patient is waiting for the second part of his MRI. Reason For Visit: ACUTE URINARY RETENTION,URINARY TRACT INFECTION, Physical Exam Vital Signs: Temp Pulse Resp BP Pulse Ox 97.8 F 97 18 122/62 100 11/21/19 15:28 11/21/19 15:45 11/21/19 15:45 11/21/19 15:28 11/21/19 15:45 Intake & Output 11/20/19 11/21/19 11/22/19 06:59 06:59 06:59 Intake Total 1050 1510 500 Output Total 2855 2950 Balance -1805 -1440 500 Weight 98.8 kg 95.3 kg 95.3 kg General appearance: PRESENT: no acute distress, well-developed, well-nourished Head exam: PRESENT: atraumatic, normocephalic Respiratory exam: PRESENT: clear to auscultation roma. ABSENT: rales, rhonchi, wheezes Cardiovascular exam: PRESENT: RRR. ABSENT: diastolic murmur, rubs, systolic murmur Pulses: PRESENT: normal dorsalis pedis pul GI/Abdominal exam: PRESENT: normal bowel sounds, soft. ABSENT: distended, guarding, mass, organolmegaly, rebound, tenderness Neurological exam: PRESENT: alert, awake, oriented to person, oriented to place, oriented to time, oriented to situation, CN II-XII grossly intact. ABSENT: motor sensory deficit Results Laboratory Results: 11/20/19 05:36 11/20/19 05:36 11/18/19 11:35 Blood Blood Culture (PCR) - Final Staphylococcus Aureus 11/19/19 09:56 Blood Blood Culture (PCR) - Final Staphylococcus Aureus 11/18/19 11:25 Blood Blood Culture (PCR) - Final Staphylococcus Aureus 11/19/19 09:48 Blood Blood Culture (PCR) - Final Staphylococcus Aureus Impressions: Wrist X-Ray 11/12/19 22:48 IMPRESSION: No acute osseous findings. Head CT 11/12/19 22:57 IMPRESSION: No acute intracranial findings. Possible expansile lesion in the sphenoid sinuses. Consider MRI. Abdomen Ultrasound 11/13/19 01:08 IMPRESSION: Minimal right hydronephrosis. Abdomen/Pelvis CT 11/15/19 00:00 IMPRESSION: Thick-walled decompressed urinary bladder with surrounding stranding. There is adjacent stranding in the extraperitoneal pelvis. Question cystitis Mild prominence of the renal collecting systems bilaterally with a small amount of perinephric and retroperitoneal inflammation. Question pyelonephritis. No obstructing stone is noted Worsening atelectasis or infiltrate in the left base Guidance Fluoroscopy 11/20/19 00:00 IMPRESSION: SUCCESSFUL PLACEMENT OF A 5 FR DUAL LUMEN 41 CM PICC IN THE LEFT BASILIC VEIN. Interventional Vascular Procedure 11/20/19 00:00 IMPRESSION: SUCCESSFUL PLACEMENT OF A 5 FR DUAL LUMEN 41 CM PICC IN THE LEFT BASILIC VEIN. PICC Line Insertion 11/20/19 00:00 IMPRESSION: SUCCESSFUL PLACEMENT OF A 5 FR DUAL LUMEN 41 CM PICC IN THE LEFT BASILIC VEIN. Lumbar Spine MRI 11/21/19 00:00 IMPRESSION: ABNORMAL SIGNAL OF THE L4-L5 DISC WITH ADJACENT ABNORMAL MARROW SIGNAL IN THE L4 AND L5 VERTEBRAE. FINDINGS ARE CONCERNING FOR DISCITIS AND OSTEOMYELITIS. EVALUATION SOMEWHAT LIMITED DUE TO LACK OF INTRAVENOUS CONTRAST. IF FURTHER CONFIRMATION IS REQUIRED, THEN WOULD OBTAIN POSTCONTRAST IMAGING. Thoracic Spine MRI 11/21/19 00:00 IMPRESSION: STUDY LIMITED DUE TO MOTION ARTIFACT. NO GROSS ABNORMALITIES. Assessment and Plan - Diagnosis (1) Hematuria Qualifiers: Hematuria type: gross Qualified Code(s): R31.0 - Gross hematuria Is this a current diagnosis for this admission?: Yes Plan: Patient is still having persistent hematuria once continuous bladder irrigation is held. Likely due to cystitis/pyelonephritis. CT abdomen pelvis 11/15/2019 showed thick-walled urinary bladder with surrounding stranding, mild prominence of the renal collecting system bilaterally with a small amount of perinephric and retroperitoneal inflammation. No obstructing stone noted. Continue continuous bladder irrigation. Monitor H&H. Unfortunately no urologist consult available at [facility]. Patient will need outpatient neurology follow-up. 11/20/2019. I contacted [facility] at [place] talked to urologist Dr. Felipe Yung urologist for possible transfer. Discussed the case with Dr. Yung, who stated that based on the fact that patient's hemoglobin has been stable on this admission he thinks his hematuria is minimum and does not require transfer at this point. He stated that patient could be discharged home with a Diaz catheter and follow-up with him next week, but if after discharge patient develops acute urine retention or gross hematuria he wants the patient to come to [facility] emergency department immediately to be admitted. Patient and family notified of the discussion with urologist and they agree with the plan. (2) MRSA bacteremia Is this a current diagnosis for this admission?: Yes Plan: Persistent bacteremia. Likely source pyelonephritis, both urine and blood culture from admission positive for MRSA. Day 8 IV antibiotics. Day 6 IV vancomycin. Received 3 days of IV meropenem. TTE and ANANDA both negative for any sign of endocarditis. Note. On 11/20/2019 I discussed the case with our radiology department about possible occult infection which could be the source of persistent bacteremia, radiologist controller operations and hr manager reviewed all images done on this hospitalization. As per radiologist CT abdomen pelvis does not appear to show any occult pocket of infection, and also he also stated that believe that there is any sign of spinal epidural abscess based on CT abdomen and pelvis. No CT chest available but he stated that based on the chest x-ray he does not think there is any occult infection. He stated that pursuing further imaging such as MRI of the spine not reveal any further information. Patient does complain of chronic lower back pain and bilateral lower extremity generalized weakness however denies any history of back trauma or any back surgery. I also did head to toe physical examination of the patient with the primary nurse and could not find any thing that could have explain his recurrent ba cteremia. His spinal examination is benign, he does not have any point tenderness over his entire spine or paraspinal regions except for bilateral redness over sacral region, there is no swelling or any abscesses over his axillary or inguinal regions, only finding was small skin abrasion on the left gluteal region which we will culture. Patient does not have any history of orthopedic surgery or any prosthetic implants however he does have cardiac stents. The only other foreign body currently is a Diaz catheter and a PICC line which was placed on 11/20/2019. We will obtain upper and lower spine MRI to rule out any spinal epidural abscesses or osteomyelitis. Continue IV vancomycin. Repeat urine and blood culture. We will attempt to transfer patient to another hospital if possible. (3) Bladder outlet obstruction Is this a current diagnosis for this admission?: Yes Plan: History of BPH. Currently Diaz catheter in. Continue tamsulosin. Avoid meds with anticholinergic side effects. Continue Diaz cath care. Bladder training before Diaz cath removal. (4) Coronary artery disease Qualifiers: Coronary Disease-Associated Artery/Lesion type: [place] artery [place] vs. transplanted heart: [place] heart Associated angina: without angina Qualified Code(s): I25.10 - Atherosclerotic heart disease of [place] coronary artery without angina pectoris Is this a current diagnosis for this admission?: Yes Plan: Denies any anginal symptoms. SPO2 WNL on RA. Vitals stable. Continue current regimen. (5) Hypertension Qualifiers: Hypertension type: essential hypertension Qualified Code(s): I10 - Essential (primary) hypertension Is this a current diagnosis for this admission?: Yes Plan: Euvolemic. Normotensive. Continue current regimen. Adjust meds as needed. Outpatient PCP follow-up. (6) UTI (urinary tract infection) Qualifiers: Urinary tract infection type: site unspecified Hematuria presence: with hematuria Qualified Code(s): N39.0 - Urinary tract infection, site not specified; R31.9 - Hematuria, unspecified Is this a current diagnosis for this admission?: Yes Plan: Complicated urinary tract infection. CT findings suggestive of bladder wall thickening and hydronephrosis and possible pyelonephritis. Urine culture positive for MRSA. Plan as per MRSA bacteremia. (7) Diabetes mellitus type 2 in nonobese Is this a current diagnosis for this admission?: Yes Plan: Controlled. Hemoglobin A1c 8.6. Continue diabetic diet, basal, prandial and correctional insulin. Hypoglycemic protocol. Accu-Chek. Restart home meds upon discharge. Outpatient PCP follow-up.
[2019-11-21] MEDS: TAMSULOSIN HCL 0.4 MG CAP.SR.24H PO SCH (17:57)
--- NOTE | 2019-11-21 20:19 | RADIOLOGY REPORT (SQ) ---
EXAM DESCRIPTION: [facility]: MR LUMBAR SPINE WITH IV CONTRAST CLINICAL HISTORY: 64 years Male r/o Osteomyeltis with contrast only TECHNIQUE: Postcontrast MRI lumbar spine. COMPARISON: Noncontrast MRI 11/21/2019 at 1306. FINDINGS: There is enhancement of the L4 and L5 vertebral bodies, corresponding to the areas of edema seen on previous exam. Minimal enhancement in the L4-L5 disc space. Anterior perivertebral of enhancement corresponds to perivertebral edema seen on previous exam. No dural thickening/enhancement, or epidural fluid collections. No nerve root enhancement. IMPRESSION: 1. L4 and L5 osteomyelitis with L4-L5 discitis. 2. No epidural abscess.
[2019-11-21] MEDS: AMLODIPINE BESYLATE 5 MG TABLET PO SCH (22:15)
[2019-11-21] MEDS: INSULIN GLARGINE,HUM.REC.ANLOG 1,000 UNIT/10 ML VIAL SUBCUT SCH (22:17)
[2019-11-22] MEDS: VANCOMYCIN HCL 1,500 MG in DEXTROSE 5%-WATER 250 ML IV SCH ×2 (05:54→13:09)
[2019-11-22] MEDS: HEPARIN SOD (PORCINE) 5,000 UNIT/ML 1 ML VIAL SUBCUT SCH ×3 (05:54→22:06)
[2019-11-22 06:07] LABS: HEMATOCRIT 30.8 % (37.9-51.0); HEMOGLOBIN 10.4 g/dL (13.5-17.0); MEAN CORPUSCULAR HEMOGLOBIN 27.4 pg (27.0-33.4); MEAN CORPUSCULAR HGB CONC 33.9 g/dL (32.0-36.0); MEAN CORPUSCULAR VOLUME 81 fl (80-97); PLATELET COUNT 495 10^3/uL (150-450); RED BLOOD COUNT 3.81 10^6/uL (4.35-5.55); RED CELL DISTRIBUTION WIDTH 14.3 % (11.5-14.0); WHITE BLOOD COUNT 8.3 10^3/uL (4.0-10.5)
[2019-11-22 06:32] LABS: ANION GAP 7 (5-19); BLOOD UREA NITROGEN 11 mg/dL (7-20); CALCIUM 9.3 mg/dL (8.4-10.2); CARBON DIOXIDE 28 mmol/L (22-30); CHLORIDE 102 mmol/L (98-107); GLUCOSE 154 mg/dL (75-110); POTASSIUM 3.9 mmol/L (3.6-5.0)
[2019-11-22] MEDS: INSULIN LISPRO 100 UNIT/ML 3 ML VIAL SUBCUT SCH ×4 (07:43→22:07)
[2019-11-22] MEDS: LEVALBUTEROL HCL NEB 1.25 MG/3 ML AMPUL NEB SCH ×2 (08:46→15:51)
[2019-11-22] MEDS: IPRATROPIUM BROMIDE 0.02% NEB 0.5 MG/2.5 ML AMPUL NEB SCH ×2 (08:46→15:51)
[2019-11-22] MEDS: LOSARTAN POTASSIUM 50 MG TABLET PO SCH ×2 (09:17→22:04)
[2019-11-22] MEDS: ACETAMINOPHEN 325 MG TABLET PO PRN ×3 (09:18→22:04)
[2019-11-22] MEDS: DOCUSATE SODIUM 100 MG CAPSULE PO SCH ×2 (09:18→17:00)
[2019-11-22] MEDS: FAMOTIDINE 20 MG TABLET PO SCH ×2 (09:18→22:04)
[2019-11-22] MEDS: UMECLIDINIUM BROMIDE 62.5 MCG/DOSE IH SCH (09:27)
[2019-11-22] MEDS: NORMAL SALINE 10 ML SDV (SCHEDULED) IV SCH (09:28)
--- NOTE | 2019-11-22 10:37 | PDOC PROGRESS REPORT ---
Subjective Progress Note for:: 11/22/19 Subjective:: 64-year-old man with DM2, hypertension, CAD, hypercholesterolemia who was recently admitted due to bronchitis and hyperglycemia. Presented to ED complaining of weakness x 2 weeks. On admission he had marked leukocytosis and blood cultures from 11/13 are positive for MRSA. His urine culture grew MRSA as well. A CT scan of abdomen and pelvis demonstrated perinephric, possible pyleonephritis/cystitis. There was right hydronephrosis noted on US. 11/17/2019. No acute events overnight. Patient resting in his recliner in no apparent distress, accompanied by his , still on bladder irrigation, hematuria seems to have resolved. Denies any chest pain, nausea, vomiting, diarrhea, constipation or any urinary symptoms. Alert and oriented x3. Cooperative with physical examination. P.o. tolerant. Having normal bowel movements. 11/18/2019. No acute events overnight. Comfortably sitting up in apparent distress. Denies any fever, chills, nausea, vomiting, diarrhea, constipation. P.o. tolerant. Unfortunately patient still having hematuria and repeat blood cultures are positive for gram-positive cocci in clusters. 11/19/2019. No acute events overnight. Hematuria resolved, patient comfortably sitting in bed no apparent distress. Waiting for his ANANDA. Family updated about ANANDA. Patient denies any fever, chills, nausea, vomiting, diarrhea, const ipation. 11/20/2019. No acute events overnight. Patient resting in bed no apparent distress. Denies any fever, chills, nausea, vomiting, diarrhea, constipation. Unfortunate patient is still having hematuria once bladder irrigation is held, his new blood culture from 11/19/2019 is again positive for MSSA. 11/21/2019. No acute events overnight. Patient comfortably sitting up in apparent distress. Patient had his MRI done today which is highly suspicion for vertebral osteomyelitis however MRI was not done with contrast and the results not conclusive. Patient is waiting for the second part of his MRI. 11/22/2019. No acute events overnight. Comfortably resting bed no apparent distress. Mild back pain which is improving, denies any fever, chills, nausea, vomiting, diarrhea. Last bowel was 2 days ago. Patient had a lower spine MRI yesterday which was positive for discitis and osteomyelitis. I have contacted neurosurgery [facility] for possible surgery but after my conversation with neurosurgery they do not think he needs to be transferred immediately and there is no surgical intervention indicated as per review of MRI images and patient's symptoms. Reason For Visit: ACUTE URINARY RETENTION,URINARY TRACT INFECTION, Physical Exam Vital Signs: Temp Pulse Resp BP Pulse Ox 98.0 F 88 16 126/66 H 99 11/22/19 07:31 11/22/19 08:46 11/22/19 08:46 11/22/19 07:31 11/22/19 08:46 Intake & Output 11/21/19 11/22/19 11/23/19 06:59 06:59 06:59 Intake Total 1510 1970 250 Output Total 2950 2200 Balance -1440 -230 250 Weight 95.3 kg 96.6 kg General appearance: PRESENT: no acute distress, well-developed, well-nourished Head exam: PRESENT: atraumatic, normocephalic Respiratory exam: PRESENT: clear to auscultation roma. ABSENT: rales, rhonchi, wheezes Cardiovascular exam: PRESENT: RRR. ABSENT: diastolic murmur, rubs, systolic murmur GI/Abdominal exam: PRESENT: normal bowel sounds, soft. ABSENT: distended, guarding, mass, organolmegaly, rebound, tenderness Neurological exam: PRESENT: alert, awake, oriented to person, oriented to place, oriented to time, oriented to situation, CN II-XII grossly intact. ABSENT: motor sensory deficit Skin exam: PRESENT: dry, intact, warm. ABSENT: cyanosis, rash Results Laboratory Results: 11/22/19 05:40 11/22/19 05:40 11/21/19 11/22/19 11/22/19 15:50 05:40 05:40 WBC 8.3 RBC 3.81 L Hgb 10.4 L Hct 30.8 L MCV 81 MCH 27.4 MCHC 33.9 RDW 14.3 H Plt Count 495 H Sodium 137.2 Potassium 3.9 Chloride 102 Carbon Dioxide 28 Anion Gap 7 BUN 11 Creatinine 0.64 Est GFR ( Amer) > 60 Glucose 154 H Calcium 9.3 C-Reactive Protein 59.8 H 11/20/19 16:14 Blood Blood Culture (PCR) - Final Staphylococcus Aureus 11/18/19 11:35 Blood Blood Culture (PCR) - Final Staphylococcus Aureus 11/19/19 09:56 Blood Blood Culture (PCR) - Final Staphylococcus Aureus 11/18/19 11:25 Blood Blood Culture (PCR) - Final Staphylococcus Aureus 11/19/19 09:48 Blood Blood Culture (PCR) - Final Staphylococcus Aureus Impressions: Wrist X-Ray 11/12/19 22:48 IMPRESSION: No acute osseous findings. Head CT 11/12/19 22:57 IMPRESSION: No acute intracranial findings. Possible expansile lesion in the sphenoid sinuses. Consider MRI. Abdomen Ultrasound 11/13/19 01:08 IMPRESSION: Minimal right hydronephrosis. Abdomen/Pelvis CT 11/15/19 00:00 IMPRESSION: Thick-walled decompressed urinary bladder with surrounding stranding. There is adjacent stranding in the extraperitoneal pelvis. Question cystitis Mild prominence of the renal collecting systems bilaterally with a small amount of perinephric and retroperitoneal inflammation. Question pyelonephritis. No obstructing stone is noted Worsening atelectasis or infiltrate in the left base Guidance Fluoroscopy 11/20/19 00:00 IMPRESSION: SUCCESSFUL PLACEMENT OF A 5 FR DUAL LUMEN 41 CM PICC IN THE LEFT BASILIC VEIN. Interventional Vascular Procedure 11/20/19 00:00 IMPRESSION: SUCCESSFUL PLACEMENT OF A 5 FR DUAL LUMEN 41 CM PICC IN THE LEFT BASILIC VEIN. PICC Line Insertion 11/20/19 00:00 IMPRESSION: SUCCESSFUL PLACEMENT OF A 5 FR DUAL LUMEN 41 CM PICC IN THE LEFT BASILIC VEIN. Thoracic Spine MRI 11/21/19 00:00 IMPRESSION: STUDY LIMITED DUE TO MOTION ARTIFACT. NO GROSS ABNORMALITIES. Lumbar Spine MRI 11/21/19 14:29 IMPRESSION: 1. L4 and L5 osteomyelitis with L4-L5 discitis. 2. No epidural abscess. Assessment and Plan - Diagnosis (1) Vertebral osteomyelitis Is this a current diagnosis for this admission?: Yes Plan: Lumbar spine MRI 11/13/2019 positive for L4-L5 discitis and osteomyelitis. Patient denies any history trauma or orthopedic surgery or IV drug abuse. No focal neurological deficits except for generalized lower extremity weakness. Patient did develop urinary retention during this hospitalization which could be explained due to his BPH. Patient denies any saddle paresthesia or fecal incontinence. I discussed the case with Dr.Hilal Cummings neurosurgeon at [facility] for possible transfer, he stated that based on review of MRI images and the fact that patient does not have any acute focal neurological deficits he does not need any surgical intervention at this point and does not need to be transferred. Recommendation is to continue IV antibiotics and repeat imaging if he develops acute focal neurological symptoms. Patient is having persistent MRSA bacteremia and already on vancomycin. TTE and ANANDA have been negative for endocarditis. Continue IV vancomycin possibly for another 6 to 12 weeks. Infectious disease on board, will await final recommendation regarding newly diagnosed vertebral osteomyelitis. (2) Hematuria Qualifiers: Hematuria type: gross Qualified Code(s): R31.0 - Gross hematuria Is this a current diagnosis for this admission?: Yes Plan: Resolved. Continue bladder irrigation is on hold. Currently Diaz cath is in. No sign of hematuria. H&H stable. Likely due to cystitis/pyelonephritis. CT abdomen pelvis 11/15/2019 showed thick-walled urinary bladder with surrounding stranding, mild prominence of the renal collecting system bilaterally with a small amount of perinephric and retroperitoneal inflammation. No obstructing stone noted. Hold continuous bladder irrigation. Monitor H&H. Monitor for bleeding. Unfortunately no urologist consult available at [facility]. Patient will need outpatient neurology follow-up. 11/20/2019. I contacted [facility] at [place] talked to urologist Dr. Felipe Yung urologist for possible transfer. Discussed the case with Dr. Yung, who stated that based on the fact that patient's hemoglobin has been stable on this admission he thinks his hematuria is minimum and does not require transfer at this point. He stated that patient could be discharged home with a Diaz catheter and follow-up with him next week, but if after discharge patient develops acute urine retention or gross hematuria he wants the patient to come to [facility] emergency department immediately to be admitted. Patient and family notified of the discussion with urologist and they agree with the plan. (3) MRSA bacteremia Is this a current diagnosis for this admission?: Yes Plan: Persistent bacteremia. Likely vertebral osteomyelitis/discitis or pyelonephritis/cystitis, both urine and blood culture from admission positive for MRSA. Day 9 IV antibiotics. Day 7 IV vancomycin. Received 3 days of IV meropenem. TTE and ANANDA both negative for any sign of endocarditis. Note. On 11/20/2019 I discussed the case with our radiology department about possible occult infection which could be the source of persistent bacteremia, radiologist consulting senior practice director reviewed all images done on this hospitalization. As per radiologist CT abdomen pelvis does not appear to show any occult pocket of infection, and also he also stated that believe that there is any sign of spinal epidural abscess based on CT abdomen and pelvis. No CT chest available but he stated that based on the chest x-ray he does not think there is any occult infection. He stated that pursuing further imaging such as MRI of the spine not reveal any further information. Patient does complain of chronic lower back pain and bilateral lower extremity generalized weakness however denies any history of back trauma or any back surgery. I also did head to toe physical examination of the patient with the primary nurse and could not find any thing that could have explain his recurrent bacteremia. His spinal examination is benign, he does not have any point tenderness over his entire spine or paraspinal regions except for bilateral redness over sacral region, there is no swelling or any abscesses over his axillary or inguinal regions, only finding was small skin abrasion on the left gluteal region which we will culture. Patient does not have any history of orthopedic surgery or any prosthetic implants however he does have cardiac stents. The only other foreign body currently is a Diaz catheter and a PICC line which was placed on 11/20/2019. Lumbar spine MRI with contrast positive for L4-L5 osteomyelitis/discitis. No epidural abscess or drainable collections. Continue IV vancomycin. Repeat urine and blood culture. (4) Bladder outlet obstruction Is this a current diagnosis for this admission?: Yes Plan: History of BPH. Currently Diaz catheter in. Continue tamsulosin. Avoid meds with anticholinergic side effects. Continue Diaz cath care. Bladder training before Diaz cath removal. (5) Coronary artery disease Qualifiers: Coronary Disease-Associated Artery/Lesion type: [place] artery [place] vs. transplanted heart: [place] heart Associated angina: without angina Qualified Code(s): I25.10 - Atherosclerotic heart disease of [place] coronary artery without angina pectoris Is this a current diagnosis for this admission?: Yes Plan: Denies any anginal symptoms. SPO2 WNL on RA. Vitals stable. Continue current regimen. (6) Hypertension Qualifiers: Hypertension type: essential hypertension Qualified Code(s): I10 - Essential (primary) hypertension Is this a current diagnosis for this admission?: Yes Plan: Euvolemic. Normotensive. Continue current regimen. Adjust meds as needed. Outpatient PCP follow-up. (7) UTI (urinary tract infection) Qualifiers: Urinary tract infection type: site unspecified Hematuria presence: with hematuria Qualified Code(s): N39.0 - Urinary tract infection, site not specified; R31.9 - Hematuria, unspecified Is this a current diagnosis for this admission?: Yes Plan: Complicated urinary tract infection. CT findings suggestive of bladder wall thickening and hydronephrosis and possible pyelonephritis. Urine culture positive for MRSA. Plan as per MRSA bacteremia. (8) Diabetes mellitus type 2 in nonobese Is this a current diagnosis for this admission?: Yes Plan: Controlled. Hemoglobin A1c 8.6. Continue diabetic diet, basal, prandial and correctional insulin. Hypoglycemic protocol. Accu-Chek. Restart home meds upon discharge. Outpatient PCP follow-up.
[2019-11-22] MEDS: NORMAL SALINE 10 ML SDV (AFTER EACH USE) IV PRN (15:00)
[2019-11-22] MEDS: TAMSULOSIN HCL 0.4 MG CAP.SR.24H PO SCH (17:00)
[2019-11-22] MEDS: AMLODIPINE BESYLATE 5 MG TABLET PO SCH (22:04)
[2019-11-22] MEDS: INSULIN GLARGINE,HUM.REC.ANLOG 1,000 UNIT/10 ML VIAL SUBCUT SCH (22:05)
[2019-11-22] MEDS: LEVALBUTEROL HCL NEB 0.63 MG/3 ML AMPUL NEB PRN (22:18)
[2019-11-23 00:12] LABS: VANCOMYCIN,TROUGH 19.3 ug/mL (5.0-20.0)
[2019-11-23] MEDS: LEVALBUTEROL HCL NEB 1.25 MG/3 ML AMPUL NEB SCH ×3 (02:37→15:44)
[2019-11-23] MEDS: IPRATROPIUM BROMIDE 0.02% NEB 0.5 MG/2.5 ML AMPUL NEB SCH ×3 (02:37→15:44)
[2019-11-23] MEDS: NORMAL SALINE 10 ML SDV (SCHEDULED) IV SCH ×2 (03:11→12:31)
[2019-11-23 05:42] LABS: HEMATOCRIT 31.5 % (37.9-51.0); HEMOGLOBIN 10.4 g/dL (13.5-17.0); MEAN CORPUSCULAR HEMOGLOBIN 26.8 pg (27.0-33.4); MEAN CORPUSCULAR HGB CONC 33.1 g/dL (32.0-36.0); MEAN CORPUSCULAR VOLUME 81 fl (80-97); PLATELET COUNT 498 10^3/uL (150-450); RED CELL DISTRIBUTION WIDTH 14.2 % (11.5-14.0); WHITE BLOOD COUNT 7.1 10^3/uL (4.0-10.5)
[2019-11-23] MEDS: ACETAMINOPHEN 325 MG TABLET PO PRN ×3 (05:50→18:52)
[2019-11-23] MEDS: HEPARIN SOD (PORCINE) 5,000 UNIT/ML 1 ML VIAL SUBCUT SCH ×2 (05:51→15:14)
[2019-11-23] MEDS: INSULIN LISPRO 100 UNIT/ML 3 ML VIAL SUBCUT SCH ×3 (08:00→15:53)
[2019-11-23] MEDS: UMECLIDINIUM BROMIDE 62.5 MCG/DOSE IH SCH (09:47)
[2019-11-23] MEDS: DOCUSATE SODIUM 100 MG CAPSULE PO SCH ×2 (09:48→17:27)
[2019-11-23] MEDS: LOSARTAN POTASSIUM 50 MG TABLET PO SCH (09:48)
[2019-11-23] MEDS: FAMOTIDINE 20 MG TABLET PO SCH (09:48)
--- NOTE | 2019-11-23 13:44 | Progress Note ---
Provider Note Provider Note: [facility] Telephone Advice - Follow Up Chart reviewed. Patient is a 64-year-old man followed due to MRSA bacteremia suspected to be from urinary tract as he presented with urinary retention and hematuria, signs and symptoms of pyelonephritis. Blood cultures from 11/13, 11/17, 11/18, 11/19 and 11/20 are positive for Staphylococcus aureus (MRSA). Vancomycin trough has been adequate throughout his admission. He has continuous bladder irrigations with improvement in hematuria. TTE negative, ANANDA as well. MRI of the lumbar spine suggestive of vertebral osteomyelitis but no epidural abscess. He had a PICC line placed on 11/20 but he was bacteremic at that time. [facility] didn't recommend any surgical intervention at this time. Blood cultures from 10/02, 10/28 and 10/29 were all negative. Vital Signs: Temp Pulse Resp BP Pulse Ox 98.1 F 92 17 130/81 H 100 11/23/19 11:22 11/23/19 11:22 11/23/19 11:22 11/23/19 11:22 11/23/19 11:22 Intake & Output 11/22/19 11/23/19 11/24/19 06:59 06:59 06:59 Intake Total 1970 1018 Output Total 2200 1775 Balance -230 -757 Weight 96.6 kg 95.3 kg Weight/Height Weight 95.3 kg Height 6 ft 4 in Laboratories: 11/23/19 05:25 11/22/19 23:25 MCV 81 fl (80-97) 11/23/19 05:25 MCH 26.8 pg (27.0-33.4) L 11/23/19 05:25 MCHC 33.1 g/dL (32.0-36.0) 11/23/19 05:25 RDW 14.2 % (11.5-14.0) H 11/23/19 05:25 Seg Neutrophils % 78.6 % (42-78) H 11/20/19 05:36 VBG pH 7.38 (7.30-7.42) 11/13/19 02:16 VBG pCO2 39.1 mmHg (35-63) 11/13/19 02:16 VBG HCO3 22.5 mmol/L (20-32) 11/13/19 02:16 VBG Base Excess -2.4 mmol/L 11/13/19 02:16 Chloride 102 mmol/L (98-107) 11/22/19 05:40 Carbon Dioxide 28 mmol/L (22-30) 11/22/19 05:40 Anion Gap 7 (5-19) 11/22/19 05:40 Est GFR ( Amer) > 60 (>60) 11/22/19 23:25 Glucose 154 mg/dL (75-110) H 11/22/19 05:40 Lactic Acid 1.0 mmol/L (0.7-2.1) 11/13/19 12:49 Calcium 9.3 mg/dL (8.4-10.2) 11/22/19 05:40 Magnesium 1.9 mg/dL (1.6-2.3) 11/14/19 05:08 Total Bilirubin 0.5 mg/dL (0.2-1.3) 11/12/19 21:25 AST 40 U/L (17-59) 11/12/19 21:25 Alkaline Phosphatase 208 U/L (38-126) H 11/12/19 21:25 C-Reactive Protein 59.8 mg/L (<10.0) H 11/21/19 15:50 Total Protein 7.5 g/dL (6.3-8.2) 11/12/19 21:25 Albumin 3.4 g/dL (3.5-5.0) L 11/12/19 21:25 Urine Color YELLOW 11/18/19 08:00 Urine Appearance CLOUDY 11/18/19 08:00 Urine pH 6.0 (5.0-9.0) 11/18/19 08:00 Ur Specific [place] 1.010 11/18/19 08:00 Urine Protein 100 mg/dL (NEGATIVE) H 11/18/19 08:00 Urine Glucose (UA) NEGATIVE mg/dL (NEGATIVE) 11/18/19 08:00 Urine Ketones NEGATIVE mg/dL (NEGATIVE) 11/18/19 08:00 Urine Blood LARGE (NEGATIVE) H 11/18/19 08:00 Urine Nitrite NEGATIVE (NEGATIVE) 11/12/19 23:48 Ur Leukocyte Esterase LARGE (NEGATIVE) H 11/12/19 23:48 Urine WBC (Auto) >182 /HPF 11/12/19 23:48 Urine RBC (Auto) >182 /HPF 11/18/19 08:00 11/20/19 16:42 Blood Blood Culture (PCR) - Final Staphylococcus Aureus 11/20/19 16:14 Blood Blood Culture (PCR) - Final Staphylococcus Aureus 11/20/19 16:14 Blood Blood Culture - Final Mrsa (Meth Resis Staph Aureus) 11/18/19 11:25 Blood Blood Culture (PCR) - Final Staphylococcus Aureus 11/19/19 09:48 Blood Blood Culture (PCR) - Final Staphylococcus Aureus 11/19/19 09:48 Blood Blood Culture - Final Mrsa (Meth Resis Staph Aureus) 11/19/19 09:56 Blood Blood Culture (PCR) - Final Staphylococcus Aureus 11/19/19 09:56 Blood Blood Culture - Final Mrsa (Meth Resis Staph Aureus) 11/18/19 11:35 Blood Blood Culture (PCR) - Final Staphylococcus Aureus 11/18/19 11:35 Blood Blood Culture - Final Mrsa (Meth Resis Staph Aureus) Radiology: Wrist X-Ray 11/12/19 22:48 IMPRESSION: No acute osseous findings. Head CT 11/12/19 22:57 IMPRESSION: No acute intracranial findings. Possible expansile lesion in the sphenoid sinuses. Consider MRI. Abdomen Ultrasound 11/13/19 01:08 IMPRESSION: Minimal right hydronephrosis. Abdomen/Pelvis CT 11/15/19 00:00 IMPRESSION: Thick-walled decompressed urinary bladder with surrounding stranding. There is adjacent stranding in the extraperitoneal pelvis. Question cystitis Mild prominence of the renal collecting systems bilaterally with a small amount of perinephric and retroperitoneal inflammation. Question pyelonephritis. No obstructing stone is noted Worsening atelectasis or infiltrate in the left base Guidance Fluoroscopy 11/20/19 00:00 IMPRESSION: SUCCESSFUL PLACEMENT OF A 5 FR DUAL LUMEN 41 CM PICC IN THE LEFT BASILIC VEIN. Interventional Vascular Procedure 11/20/19 00:00 IMPRESSION: SUCCESSFUL PLACEMENT OF A 5 FR DUAL LUMEN 41 CM PICC IN THE LEFT BASILIC VEIN. PICC Line Insertion 11/20/19 00:00 IMPRESSION: SUCCESSFUL PLACEMENT OF A 5 FR DUAL LUMEN 41 CM PICC IN THE LEFT BASILIC VEIN. Thoracic Spine MRI 11/21/19 00:00 IMPRESSION: STUDY LIMITED DUE TO MOTION ARTIFACT. NO GROSS ABNORMALITIES. Lumbar Spine MRI 11/21/19 14:29 IMPRESSION: 1. L4 and L5 osteomyelitis with L4-L5 discitis. 2. No epidural abscess. Assessment and Recomendations: Patient evaluated due to MRSA bacteremia, persistent for 7 days now without known specific undrained abscess. Suspected source was the urinary tract but he also has infectious spondylitis. TTE and ANANDA negative. Urology consult over the phone per primary - follow up as outpatient. Neurosurgery - no surgical int ervention recommended at this time. As there isn't a specific source for persistent bacteremia, I am recommending to transfer this patient to [place] where he can have full ID evaluation, neurosurgery and urology to control this bloodstream infection. Vancomycin is adequate for now. Daptomycin and ceftaroline combination is used for salvage therapy if persistent MRSA bacteremia. Ceftaroline not available to [facility]. PICC line placed on 11/20 needs to be removed and wait until clearance of bacteremia. Please call if updates or questions. Jess Soto MD [facility] [phone]
[2019-11-23] MEDS ORDERED: VANCOMYCIN HCL 1,000 MG in DEXTROSE 5%-WATER 250 ML IV SCH (14:00)
--- NOTE | 2019-11-23 15:16 | PDOC PROGRESS REPORT ---
Subjective Progress Note for:: 11/23/19 Subjective:: 64-year-old man with DM2, hypertension, CAD, hypercholesterolemia who was recently admitted due to bronchitis and hyperglycemia. Presented to ED complaining of weakness x 2 weeks. On admission he had marked leukocytosis and blood cultures from 11/13 are positive for MRSA. His urine culture grew MRSA as well. A CT scan of abdomen and pelvis demonstrated perinephric, possible pyleonephritis/cystitis. There was right hydronephrosis noted on US. 11/17/2019. No acute events overnight. Patient resting in his recliner in no apparent distress, accompanied by his , still on bladder irrigation, hematuria seems to have resolved. Denies any chest pain, nausea, vomiting, diarrhea, constipation or any urinary symptoms. Alert and oriented x3. Cooperative with physical examination. P.o. tolerant. Having normal bowel movements. 11/18/2019. No acute events overnight. Comfortably sitting up in apparent distress. Denies any fever, chills, nausea, vomiting, diarrhea, constipation. P.o. tolerant. Unfortunately patient still having hematuria and repeat blood cultures are positive for gram-positive cocci in clusters. 11/19/2019. No acute events overnight. Hematuria resolved, patient comfortably sitting in bed no apparent distress. Waiting for his ANANDA. Family updated about ANANDA. Patient denies any fever, chills, nausea, vomiting, diarrhea, const ipation. 11/20/2019. No acute events overnight. Patient resting in bed no apparent distress. Denies any fever, chills, nausea, vomiting, diarrhea, constipation. Unfortunate patient is still having hematuria once bladder irrigation is held, his new blood culture from 11/19/2019 is again positive for MSSA. 11/21/2019. No acute events overnight. Patient comfortably sitting up in apparent distress. Patient had his MRI done today which is highly suspicion for vertebral osteomyelitis however MRI was not done with contrast and the results not conclusive. Patient is waiting for the second part of his MRI. 11/22/2019. No acute events overnight. Comfortably resting bed no apparent distress. Mild back pain which is improving, denies any fever, chills, nausea, vomiting, diarrhea. Last bowel was 2 days ago. Patient had a lower spine MRI yesterday which was positive for discitis and osteomyelitis. I have contacted neurosurgery [facility] for possible surgery but after my conversation with neurosurgery they do not think he needs to be transferred immediately and there is no surgical intervention indicated as per review of MRI images and patient's symptoms. 11/23/2019. No acute events overnight. Unfortunately patient is still bacteremic. We will try to transfer to tertiary center as per ID recommendation. Reason For Visit: ACUTE URINARY RETENTION,URINARY TRACT INFECTION, Physical Exam Vital Signs: Temp Pulse Resp BP Pulse Ox 98.1 F 92 17 130/81 H 100 11/23/19 11:22 11/23/19 11:22 11/23/19 11:22 11/23/19 11:22 11/23/19 11:22 Intake & Output 11/22/19 11/23/19 11/24/19 06:59 06:59 06:59 Intake Total 1970 1018 650 Output Total 2200 1775 550 Balance -230 -757 100 Weight 96.6 kg 95.3 kg General appearance: PRESENT: no acute distress, well-developed, well-nourished Head exam: PRESENT: atraumatic, normocephalic Respiratory exam: PRESENT: clear to auscultation roma. ABSENT: rales, rhonchi, wheezes Cardiovascular exam: PRESENT: RRR. ABSENT: diastolic murmur, rubs, systolic murmur GI/Abdominal exam: PRESENT: normal bowel sounds, soft. ABSENT: distended, guarding, mass, organolmegaly, rebound, tenderness Extremities exam: PRESENT: full ROM. ABSENT: calf tenderness, clubbing, pedal edema Neurological exam: PRESENT: alert, awake, oriented to person, oriented to place, oriented to time, oriented to situation, CN II-XII grossly intact. ABSENT: motor sensory deficit Results Laboratory Results: 11/23/19 05:25 11/22/19 23:25 11/22/19 11/23/19 23:25 05:25 WBC 7.1 RBC 3.90 L Hgb 10.4 L Hct 31.5 L MCV 81 MCH 26.8 L MCHC 33.1 RDW 14.2 H Plt Count 498 H Creatinine 0.62 Est GFR ( Amer) > 60 11/20/19 16:42 Blood Blood Culture (PCR) - Final Staphylococcus Aureus 11/20/19 16:14 Blood Blood Culture (PCR) - Final Staphylococcus Aureus 11/20/19 16:14 Blood Blood Culture - Final Mrsa (Meth Resis Staph Aureus) 11/18/19 11:25 Blood Blood Culture (PCR) - Final Staphylococcus Aureus 11/19/19 09:48 Blood Blood Culture (PCR) - Final Staphylococcus Aureus 11/19/19 09:48 Blood Blood Culture - Final Mrsa (Meth Resis Staph Aureus) 11/19/19 09:56 Blood Blood Culture (PCR) - Final Staphylococcus Aureus 11/19/19 09:56 Blood Blood Culture - Final Mrsa (Meth Resis Staph Aureus) 11/18/19 11:35 Blood Blood Culture (PCR) - Final Staphylococcus Aureus 11/18/19 11:35 Blood Blood Culture - Final Mrsa (Meth Resis Staph Aureus) Impressions: Wrist X-Ray 11/12/19 22:48 IMPRESSION: No acute osseous findings. Head CT 11/12/19 22:57 IMPRESSION: No acute intracranial findings. Possible expansile lesion in the sphenoid sinuses. Consider MRI. Abdomen Ultrasound 11/13/19 01:08 IMPRESSION: Minimal right hydronephrosis. Abdomen/Pelvis CT 11/15/19 00:00 IMPRESSION: Thick-walled decompressed urinary bladder with surrounding stranding. There is adjacent stranding in the extraperitoneal pelvis. Question cystitis Mild prominence of the renal collecting systems bilaterally with a small amount of perinephric and retroperitoneal inflammation. Question pyelonephritis. No obstructing stone is noted Worsening atelectasis or infiltrate in the left base Guidance Fluoroscopy 11/20/19 00:00 IMPRESSION: SUCCESSFUL PLACEMENT OF A 5 FR DUAL LUMEN 41 CM PICC IN THE LEFT BASILIC VEIN. Interventional Vascular Procedure 11/20/19 00:00 IMPRESSION: SUCCESSFUL PLACEMENT OF A 5 FR DUAL LUMEN 41 CM PICC IN THE LEFT BASILIC VEIN. PICC Line Insertion 11/20/19 00:00 IMPRESSION: SUCCESSFUL PLACEMENT OF A 5 FR DUAL LUMEN 41 CM PICC IN THE LEFT BASILIC VEIN. Thoracic Spine MRI 11/21/19 00:00 IMPRESSION: STUDY LIMITED DUE TO MOTION ARTIFACT. NO GROSS ABNORMALITIES. Lumbar Spine MRI 11/21/19 14:29 IMPRESSION: 1. L4 and L5 osteomyelitis with L4-L5 discitis. 2. No epidural abscess. Assessment and Plan - Diagnosis (1) MRSA bacteremia Is this a current diagnosis for this admission?: Yes Plan: Persistent bacteremia. No definitive source identified. Pending transfer to tertiary center. Likely vertebral osteomyelitis/discitis or pyelonephritis/cystitis, both urine and blood culture from admission positive for MRSA. Day 10 IV antibiotics. Day 8 IV vancomycin. Received 3 days of IV meropenem. TTE and ANANDA both negative for any sign of endocarditis. Note. On 11/20/2019 I discussed the case with our radiology department about possible occult infection which could be the source of persistent bacteremia, radiologist occasional caregiver reviewed all images done on this hospitalization. As per radiologist CT abdomen pelvis does not appear to show any occult pocket of infection, and also he also stated that believe that there is any sign of spinal epidural abscess based on CT abdomen and pelvis. No CT chest available but he stated that based on the chest x-ray he does not think there is any occult infection. He stated that pursuing further imaging such as MRI of the spine not reveal any further information. Patient does complain of chronic lower back pain and bilateral lower extremity generalized weakness however denies any history of back trauma or any back surgery. I also did head to toe physical examination of the patient with the primary nurse and could not find any thing that could have explain his recurrent bacteremia. His spinal examination is benign, he does not have any point tenderness over his entire spine or paraspinal regions except for bilateral redness over sacral region, there is no swelling or any abscesses over his axillary or inguinal regions, only finding was small skin abrasion on the left gluteal region which we will culture. Patient does not have any history of orthopedic surgery or any prosthetic implants however he does have cardiac stents. The only other foreign body currently is a Diaz catheter and a PICC line which was placed on 11/20/2019. Lumbar spine MRI with contrast positive for L4-L5 osteomyelitis/discitis. No epidural abscess or drainable collections. Continue IV vancomycin. Repeat urine and blood culture. We will try to transfer to tertiary center preferably under ID care. (2) Vertebral osteomyelitis Is this a current diagnosis for this admission?: Yes Plan: Lumbar spine MRI 11/13/2019 positive for L4-L5 discitis and osteomyelitis. Patient denies any history trauma or orthopedic surgery or IV drug abuse. No focal neurological deficits except for generalized lower extremity weakness. Patient did develop urinary retention during this hospitalization which could be explained due to his BPH. Patient denies any saddle paresthesia or fecal incontinence. I discussed the case with Dr.Hilal Cummings neurosurgeon at [facility] for possible transfer, he stated that based on review of MRI images and the fact that patient does not have any acute focal neurological deficits he does not need any surgical intervention at this point and does not need to be transferred. Recommendation is to continue IV antibiotics and repeat imaging if he develops acute focal neurological symptoms. Patient is having persistent MRSA bacteremia and already on vancomycin. TTE and ANANDA have been negative for endocarditis. Continue IV vancomycin possibly for another 6 to 12 weeks. Infectious disease on board, will await final recommendation regarding newly diagnosed vertebral osteomyelitis. (3) Hematuria Qualifiers: Hematuria type: gross Qualified Code(s): R31.0 - Gross hematuria Is this a current diagnosis for this admission?: Yes Plan: Resolved. Continue bladder irrigation is on hold. Currently Diaz cath is in. No sign of hematuria. H&H stable. Likely due to cystitis/pyelonephritis. CT abdomen pelvis 11/15/2019 showed thick-walled urinary bladder with surrounding stranding, mild prominence of the renal collecting system bilaterally with a small amount of perinephric and retroperitoneal inflammation. No obstructing stone noted. Hold continuous bladder irrigation. Monitor H&H. Monitor for bleeding. Unfortunately no urologist consult available at [facility]. Patient will need outpatient neurology follow-up. 11/20/2019. I contacted [facility] [place] talked to urologist Dr. Felipe Yung urologist for possible transfer. Discussed the case with Dr. Yung, who stated that based on the fact that patient's hemoglobin has been stable on this admission he thinks his hematuria is minimum and does not require transfer at this point. He stated that patient could be discharged home with a Diaz catheter and follow-up with him next week, but if after discharge patient develops acute urine retention or gross hematuria he wants the patient t o come to [facility] emergency department immediately to be admitted. Patient and family notified of the discussion with urologist and they agree with the plan. (4) Bladder outlet obstruction Is this a current diagnosis for this admission?: Yes Plan: History of BPH. Currently Diaz catheter in. Continue tamsulosin. Avoid meds with anticholinergic side effects. Continue Diaz cath care. Bladder training before Diaz cath removal. (5) Coronary artery disease Qualifiers: Coronary Disease-Associated Artery/Lesion type: [place] artery [place] vs. transplanted heart: [place] heart Associated angina: without angina Qualified Code(s): I25.10 - Atherosclerotic heart disease of [place] coronary artery [facility] angina pectoris Is this a current diagnosis for this admission?: Yes Plan: Denies any anginal symptoms. SPO2 WNL on RA. Vitals stable. Continue current regimen. (6) Hypertension Qualifiers: Hypertension type: essential hypertension Qualified Code(s): I10 - Rajan al (primary) hypertension Is this a current diagnosis for this admission?: Yes Plan: Euvolemic. Normotensive. Continue current regimen. Adjust meds as needed. Outpatient PCP follow-up. (7) UTI (urinary tract infection) Qualifiers: Urinary tract infection type: site unspecified Hematuria presence: with hematuria Qualified Code(s): N39.0 - Urinary tract infection, site not specified; R31.9 - Hematuria, unspecified Is this a current diagnosis for this admission?: Yes Plan: Complicated urinary tract infection. CT findings suggestive of bladder wall thickening and hydronephrosis and po ssible pyelonephritis. Urine culture positive for MRSA. Plan as per MRSA bacteremia. (8) Diabetes mellitus type 2 in nonobese Is this a current diagnosis for this admission?: Yes Plan: Controlled. Hemoglobin A1c 8.6. Continue diabetic diet, basal, prandial and correctional insulin. Hypoglycemic protocol. Accu-Chek. Restart home meds upon discharge. Outpatient PCP follow-up.
[2019-11-23] MEDS: TAMSULOSIN HCL 0.4 MG CAP.SR.24H PO SCH (17:27)
--- NOTE | 2019-11-23 17:58 | PDOC TRANSFER SUMMARY ---
General Admission Date/PCP: 11/13/19 04:15 CATHERINE AVERY PA-C Resuscitation Status: Full Code - Transfer Diagnosis (1) MRSA bacteremia Is this a current diagnosis for this admission?: Yes (2) Vertebral osteomyelitis Is this a current diagnosis for this admission?: Yes (3) Hematuria Is this a current diagnosis for this admission?: Yes (4) Bladder outlet obstruction Is this a current diagnosis for this admission?: Yes (5) Coronary artery disease Is this a current diagnosis for this admission?: Yes (6) Hypertension Is this a current diagnosis for this admission?: Yes (7) UTI (urinary tract infection) Is this a current diagnosis for this admission?: Yes (8) Diabetes mellitus type 2 in nonobese Is this a current diagnosis for this admission?: Yes - Transfer Medications Home Medications: Albuterol Sulfate [Albuterol Sulfate Hfa] 2 puff IH Q6 11/13/19 Albuterol Sulfate [Ventolin 0.083% Neb 2.5 mg/3 mL Ampul] 1 vial NEB RTQ6 11/13/19 Fluticasone/Salmeterol [Advair 500-50 Diskus 14 Dose/Diskus] 1 puff IH Q12 11/13/19 Insulin Aspart Prot/Insuln Asp [Novolog Mix 70-30 Flexpen] 8 unit SQ QPM 11/13/19 Insulin Aspart Prot/Insuln Asp [Novolog Mix 70-30 Flexpen] 15 unit SQ QAM 11/13/19 Losartan Potassium [Cozaar 50 mg Tablet] 50 mg PO Q12 11/13/19 Metformin HCl [Glucophage 500 mg Tablet] 500 mg PO BID 11/13/19 Tamsulosin HCl [Flomax] 0.4 mg PO DAILY 11/13/19 Tiotropium [place] [Spiriva Respimat] 1 puff IH DAILY 11/13/19 Transfer Medications: Current Medications Acetaminophen (Tylenol 325 Mg Tablet) 650 mg PO Q4HP PRN PRN Reason: For headache, pain or fever Stop: 12/13/19 04:23 Last Admin: 11/23/19 12:24 Dose: 650 mg Documented by: Al Hydrox/Mg Hydrox/Simethicone (Maalox Plus Susp 30 Udcup) 30 ml PO Q6HP PRN PRN Reason: HEARTBURN Stop: 12/13/19 04:14 Last Admin: 11/21/19 09:28 Dose: 30 ml Documented by: Amlodipine Besylate (Norvasc 5 Mg Tablet) 5 mg PO QHS [facility] Stop: 12/17/19 21:59 Last Admin: 11/22/19 22:04 Dose: 5 mg Documented by: Dextrose (Dextrose Inj 50% Syringe (25 Gm/50 Ml)) 12.5 gm IV PRN PRN; Protocol PRN Reason: FOR BG 50-69 IN ALERT PATIENT Stop: 12/17/19 13:06 Dextrose (Dextrose Inj 50% Syringe (25 Gm/50 Ml)) 25 gm IV PRN PRN; Protocol PRN Reason: PER PROTOCOL Stop: 12/17/19 13:06 Docusate Sodium (Colace 100 Mg Capsule) 100 mg PO BID [facility] Stop: 12/13/19 09:59 Last Admin: 11/23/19 17:27 Dose: 100 mg Documented by: Famotidine (Pepcid 20 Mg Tablet) 20 mg PO Q12 [facility] Stop: 12/13/19 09:59 Last Admin: 11/23/19 09:48 Dose: 20 mg Documented by: Glucagon (Glucagen Inj 1 Mg Vial) 1 mg IM PRN PRN; Protocol PRN Reason: Evaluate for BG < 70 Stop: 12/17/19 13:06 Glucose (Glutose 40% Gel 15 Gm Tube) 15 gm PO PRN PRN; Protocol PRN Reason: FOR BG 50-69 IN ALERT PATIENT Stop: 12/17/19 13:06 Glucose (Glutose 40% Gel 15 Gm Tube) 30 gm PO PRN PRN; Protocol PRN Reason: FOR BG < 50 IN ALERT PATIENT Stop: 12/17/19 13:06 Guaifenesin (Robitussin Syrup 200 Mg/10 Ml Ud Cup) 200 mg PO Q4HP PRN PRN Reason: COUGH Stop: 12/13/19 04:23 Last Admin: 11/19/19 20:15 Dose: 200 mg Documented by: Heparin Sodium (Porcine) (Heparin Inj 5,000 Units/Ml 1 Ml Vial) 5,000 unit SUBCUT Q8 [facility] Stop: 12/13/19 05:59 Last Admin: 11/23/19 15:14 Dose: 5,000 unit Documented by: Heparin Sodium (Porcine) (Heparin Flush 10 Unit/Ml 5 Ml Disp.Syrg) 30 unit IV Q12 [facility] Stop: 12/20/19 21:59 Last Admin: 11/23/19 12:25 Dose: 30 unit Documented by: Heparin Sodium (Porcine) (Heparin Flush 10 Unit/Ml 5 Ml Disp.Syrg) 30 unit IV .AFTER EACH USE PRN Stop: 12/20/19 15:59 Last Admin: 11/22/19 15:01 Dose: 30 unit Documented by: Hydralazine HCl (Apresoline Inj/Pf 20 Mg/1 Ml Sdv) 10 mg IV Q3HP PRN PRN Reason: Give For Sbp > [150] Stop: 12/17/19 13:26 Vancomycin HCl 1,000 mg/ (Dextrose) 250 mls @ 166.667 mls/hr IV Q8 [facility] Stop: 11/30/19 13:59 Last Infusion: 11/23/19 16:53 Dose: Infused Documented by: Insulin Glargine (Lantus Insulin 100 Unit/1 Ml 10 Ml) 15 unit SUBCUT QHS [facility] Stop: 12/17/19 21:59 Last Admin: 11/22/19 22:05 Dose: 15 unit Documented by: Insulin Human Lispro (Humalog Insulin 100 Unit/1 Ml 3 Ml Vial) 0 - 12 unit SUBCUT [facility]; Protocol Stop: 12/17/19 15:59 Last Admin: 11/23/19 15:53 Dose: 2 unit Documented by: Ipratropium [place] (Atrovent 0.02% Neb 0.5 Mg/2.5 Ml Ampul) 0.5 mg NEB RTQ8 [facility] Stop: 12/13/19 07:59 Last Admin: 11/23/19 15:44 Dose: 0.5 mg Documented by: Levalbuterol HCl (Xopenex Neb 0.63 Mg/3 Ml Ampul) 0.63 mg NEB RTQ2HP PRN PRN Reason: SHORTNESS OF BREATH Stop: 12/13/19 04:23 Last Admin: 11/22/19 22:18 Dose: 0.63 mg Documented by: Levalbuterol HCl (Xopenex Neb 1.25 Mg/3 Ml Ampul) 1.25 mg NEB RTQ8 [facility] Stop: 12/13/19 07:59 Last Admin: 11/23/19 15:44 Dose: 1.25 mg Documented by: Losartan Potassium (Cozaar 50 Mg Tablet) 50 mg PO Q12 [facility] Stop: 12/14/19 21:59 Last Admin: 11/23/19 09:48 Dose: 50 mg Documented by: Magnesium Hydroxide (Milk Of Magnesia 30 Ml Udcup) 30 ml PO DAILYP PRN PRN Reason: FOR CONSTIPATION Stop: 12/13/19 04:14 Last Admin: 11/22/19 07:43 Dose: 30 ml Documented by: Metformin HCl (Glucophage 500 Mg Tablet) 1,000 mg PO BID [facility] Stop: 12/23/19 17:59 Last Admin: 11/23/19 17:27 Dose: 1,000 mg Documented by: Promethazine HCl (Phenergan Inj 25 Mg/1 Ml Vial) 12.5 mg IV Q4HP PRN PRN Reason: FOR NAUSEA/VOMITING Stop: 12/13/19 04:14 Sodium Chloride (Saline Flush 2.5 Ml Monoject Prefil Syrin) 2.5 ml IV Q8 [facility] Stop: 12/13/19 05:59 Last Admin: 11/23/19 14:55 Dose: Not Given Documented by: Sodium Chloride (Nacl 0.9% Inj/Pf 10 Ml Sdv) 10 ml IV Q12 [facility] Stop: 12/20/19 21:59 Last Admin: 11/23/19 12:31 Dose: 10 ml Documented by: Sodium Chloride (Nacl 0.9% Inj/Pf 10 Ml Sdv) 10 ml IV .AFTER EACH USE PRN Stop: 12/20/19 15:59 Last Admin: 11/22/19 15:00 Dose: 10 ml Documented by: Tamsulosin HCl (Flomax 0.4 Mg Cap.Sr) 0.4 mg PO PCSUPPER [facility] Stop: 12/13/19 17:59 Last Admin: 11/23/19 17:27 Dose: 0.4 mg Documented by: Umeclidinium [place] (Incruse 62.5 Mcg Ellipta 7 Dose/Dpi) 1 inh IH DAILY [facility] Stop: 12/14/19 15:29 Last Admin: 11/23/19 09:47 Dose: 1 puff Documented by: - Allergies Allergies/Adverse Reactions: No Known Allergies Allergy (Verified 10/28/19 23:10) Hospital Course Hospital Course: 64-year-old man with DM2, hypertension, CAD, hypercholesterolemia who was recently admitted due to bronchitis and hyperglycemia. Presented to ED complaining of weakness x 2 weeks. On admission he had marked leukocytosis and blood cultures from 11/13 are positive for MRSA. His urine culture grew MRSA as well. A CT scan of abdomen and pelvis demonstrated perinephric, possible pyleonephritis/cystitis. There was right hydronephrosis noted on US. (1) MRSA bacteremia Persistent bacteremia. No definitive source identified. Likely vertebral osteomyelitis/discitis or pyelonephritis/cystitis, both urine and blood culture from admission positive for MRSA. Day 10 IV antibiotics. Day 8 IV vancomycin. Received 3 days of IV meropenem. TTE and ANANDA both negative for any sign of endocarditis. Lumbar spine MRI with contrast positive for L4-L5 osteomyelitis/discitis. No epidural abscess or drainable collections. Patient does not have any history of orthopedic surgery or any prosthetic implants however he does have cardiac stents. The only other foreign body currently is a Diaz catheter and a PICC line which was placed on 11/20/2019, removed 11/23/2019. Continue IV vancomycin. Repeat urine and blood culture. ID on board. (2) Vertebral osteomyelitis Lumbar spine MRI 11/13/2019 positive for L4-L5 discitis and osteomyelitis. Patient denies any history trauma or orthopedic surgery or IV drug abuse. No focal neurological deficits except for generalized lower extremity weakness. Patient did develop urinary retention during this hospitalization which could be explained due to his BPH. Patient denies any saddle paresthesia or fecal incontinence. I discussed the case with Dr.Hilal Cummings neurosurgeon at [facility] for possible transfer, he stated that based on review of MRI images and the fact that patient does not have any acute focal neurological deficits he does not need any surgical intervention at this point and does not need to be transferred. Recommendation is to continue IV antibiotics and repeat imaging if he develops acute focal neurological symptoms. Patient is having persistent MRSA bacteremia and already on vancomycin. TTE and ANANDA have been negative for endocarditis. Continue IV vancomycin possibly for another 6 to 12 weeks. Infectious disease on board, will await final recommendation regarding newly diagnosed vertebral osteomyelitis. (3) Hematuria Resolved. Continue bladder irrigation is on hold. Currently Diaz cath is in. No sign of hematuria. H&H stable. Likely due to cystitis/pyelonephritis. CT abdomen pelvis 11/15/2019 showed thick-walled urinary bladder with surrounding stranding, mild prominence of the renal collecting system bilaterally with a small amount of perinephric and retroperitoneal inflammation. No obstructing stone noted. Hold continuous bladder irrigation. Monitor H&H. Monitor for bleeding. Unfortunately no urologist consult available at [facility]. Patient will need outpatient neurology follow-up. 11/20/2019. I contacted [facility] [place] talked to urologist Dr. Felipe Yung urologist for possible transfer. Discussed the case with Dr. Yung, who stated that based on the fact that patient's hemoglobin has been stable on this admission he thinks his hematuria is minimum and does not require transfer at this point. He stated that patient could be discharged home with a Diaz catheter and follow-up with him next week, but if after discharge patient develops acute urine retention or gross hematuria he wants the patient to come to [facility] emergency department immediately to be admitted. Patient and family notified of the discussion with urologist and they agree with the plan. (4) Bladder outlet obstruction History of BPH. Currently Diaz catheter in. Continue tamsulosin. Avoid meds with anticholinergic side effects. Continue Diaz cath care. Bladder training before Diaz cath removal. (5) Coronary artery disease Denies any anginal symptoms. Hx of PCI x 2 stents. SPO2 WNL on RA. Vitals stable. Continue current regimen. (6) Hypertension Euvolemic. Normotensive. Continue current regimen. Adjust meds as needed. Outpatient PCP follow-up. (7) UTI (urinary tract infection) Complicated urinary tract infection. CT findings suggestive of bladder wall thickening and hydronephrosis and possible pyelonephritis. Urine culture positive for MRSA. Plan as per MRSA bacteremia. (8) Diabetes mellitus type 2 in nonobese Controlled. Hemoglobin A1c 8.6. Continue diabetic diet, basal, prandial and correctional insulin. Hypoglycemic protocol. Accu-Chek. Restart home meds upon discharge. Outpatient PCP follow-up. Physical Exam Vital Signs: Temp Pulse Resp BP Pulse Ox 98.5 F 97 18 131/74 H 100 11/23/19 15:35 11/23/19 15:44 11/23/19 15:44 11/23/19 15:35 11/23/19 15:44 Intake & Output 11/22/19 11/23/19 11/24/19 06:59 06:59 06:59 Intake Total 1970 1018 900 Output Total 2200 1775 550 Balance -230 -757 350 Weight 96.6 kg 95.3 kg General appearance: PRESENT: no acute distress, well-developed, well-nourished Head exam: PRESENT: atraumatic, normocephalic Respiratory exam: PRESENT: clear to auscultation roma. ABSENT: rales, rhonchi, wheezes Cardiovascular exam: PRESENT: RRR. ABSENT: diastolic murmur, rubs, systolic murmur GI/Abdominal exam: PRESENT: normal bowel sounds, soft. ABSENT: distended, guarding, mass, organolmegaly, rebound, tenderness Gentrourinary exam: PRESENT: indwelling catheter Neurological exam: PRESENT: alert, awake, oriented to person, oriented to place, oriented to time, oriented to situation, CN II-XII grossly intact. ABSENT: motor sensory deficit Skin exam: PRESENT: dry, intact, warm. ABSENT: cyanosis, rash Results Laboratory Results: 11/23/19 05:25 11/22/19 23:25 11/22/19 11/23/19 23:25 05:25 WBC 7.1 RBC 3.90 L Hgb 10.4 L Hct 31.5 L MCV 81 MCH 26.8 L MCHC 33.1 RDW 14.2 H Plt Count 498 H Creatinine 0.62 Est GFR ( Amer) > 60 11/18/19 11:25 Blood Blood Culture (PCR) - Final Staphylococcus Aureus 11/18/19 11:25 Blood Blood Culture - Final Mrsa (Meth Resis Staph Aureus) 11/20/19 16:42 Blood Blood Culture (PCR) - Final Staphylococcus Aureus 11/20/19 16:14 Blood Blood Culture (PCR) - Final Staphylococcus Aureus 11/20/19 16:14 Blood Blood Culture - Final Mrsa (Meth Resis Staph Aureus) 11/19/19 09:48 Blood Blood Culture (PCR) - Final Staphylococcus Aureus 11/19/19 09:48 Blood Blood Culture - Final Mrsa (Meth Resis Staph Aureus) 11/19/19 09:56 Blood Blood Culture (PCR) - Final Staphylococcus Aureus 11/19/19 09:56 Blood Blood Culture - Final Mrsa (Meth Resis Staph Aureus) 11/18/19 11:35 Blood Blood Culture (PCR) - Final Staphylococcus Aureus 11/18/19 11:35 Blood Blood Culture - Final Mrsa (Meth Resis Staph Aureus) Impressions: Wrist X-Ray 11/12/19 22:48 IMPRESSION: No acute osseous findings. Head CT 11/12/19 22:57 IMPRESSION: No acute intracranial findings. Possible expansile lesion in the sphenoid sinuses. Consider MRI. Abdomen Ultrasound 11/13/19 01:08 IMPRESSION: Minimal right hydronephrosis. Abdomen/Pelvis CT 11/15/19 00:00 IMPRESSION: Thick-walled decompressed urinary bladder with surrounding stranding. There is adjacent stranding in the extraperitoneal pelvis. Question cystitis Mild prominence of the renal collecting systems bilaterally with a small amount of perinephric and retroperitoneal inflammation. Question pyelonephritis. No obstructing stone is noted Worsening atelectasis or infiltrate in the left base Guidance Fluoroscopy 11/20/19 00:00 IMPRESSION: SUCCESSFUL PLACEMENT OF A 5 FR DUAL LUMEN 41 CM PICC IN THE LEFT BASILIC VEIN. Interventional Vascular Procedure 11/20/19 00:00 IMPRESSION: SUCCESSFUL PLACEMENT OF A 5 FR DUAL LUMEN 41 CM PICC IN THE LEFT BASILIC VEIN. PICC Line Insertion 11/20/19 00:00 IMPRESSION: SUCCESSFUL PLACEMENT OF A 5 FR DUAL LUMEN 41 CM PICC IN THE LEFT BASILIC VEIN. Thoracic Spine MRI 11/21/19 00:00 IMPRESSION: STUDY LIMITED DUE TO MOTION ARTIFACT. NO GROSS ABNORMALITIES. Lumbar Spine MRI 11/21/19 14:29 IMPRESSION: 1. L4 and L5 osteomyelitis with L4-L5 discitis. 2. No epidural abscess.
[2019-11-23] MEDS ORDERED: METFORMIN HCL 500 MG TABLET PO SCH (18:00)
[2019-11-23 21:45] VITALS: BP 123/71
== END 2019-11-23 21:44 | disposition short-term general hospital (02) | DRG 689 ==
LOC: ER 20:59 → EH 11-13 03:38 → OBSVTOIN 11-13 04:15 → 3S 11-13 05:15
PROVIDERS: ADMIT Emergency Medicine; ATTEND Emergency Medicine
PROC: B24BZZ4 Ultrasonography of Heart with Aorta, Transesophageal (ICD-10-PCS; principal; 2019-11-19 08:00)
PROC: 02HV33Z Insertion of Infusion Device into Superior Vena Cava, Percutaneous Approach (ICD-10-PCS; 2019-11-20)
DX: N39.0 Urinary tract infection, site not specified (principal); G93.41 Metabolic encephalopathy; M46.26 Osteomyelitis of vertebra, lumbar region; R78.81 Bacteremia; N13.30 Unspecified hydronephrosis; B95.62 Methicillin resistant Staphylococcus aureus infection as the cause of diseases classified elsewhere; I25.10 Atherosclerotic heart disease of native coronary artery without angina pectoris; I10 Essential (primary) hypertension; E11.9 Type 2 diabetes mellitus without complications; E78.00 Pure hypercholesterolemia, unspecified; N40.1 Benign prostatic hyperplasia with lower urinary tract symptoms; R33.8 Other retention of urine; N32.0 Bladder-neck obstruction; J45.909 Unspecified asthma, uncomplicated; I49.1 Atrial premature depolarization; R31.0 Gross hematuria; Z79.4 Long term (current) use of insulin; Z95.5 Presence of coronary angioplasty implant and graft; Z79.82 Long term (current) use of aspirin; Z83.3 Family history of diabetes mellitus; Z82.49 Family history of ischemic heart disease and other diseases of the circulatory system
CPT/HCPCS: 01922; 36415; 36569; 51702; 70450; 71045; 72146; 72148; 72149; 74176; 76705; 76937; 77001; 80048; 80053; 80202; 81001; 82565; 82803; 82962; 83605; 83735; 85025; 85027; 85610; 85652; 86140; 87040; 87077; 87086; 87088; 87150; 87186; 93005; 93010; 93306; 93312; 93325; 94640; 96361; 96365; 99285; A9576; C1758; J0696; J1200; J1642; J1644; J1815; J2060; J2185; J2250; J2270; J2310; J2704; J3010; J3370; J3490; J7030; J7040; J7060; J7120; J7614

== ENCOUNTER 2020-02-04 16:46 | Emergency (ER) | payer MEDICARE ==
--- NOTE | 2020-02-04 17:12 | ER Document Report ---
ED Medical Screen (RME) - General Chief Complaint: Leg Pain Stated Complaint: LEG PAIN Time Seen by Provider: 02/04/20 17:05 Primary Care Provider: CATHERINE AVERY PA-C [Primary Care Provider] - Follow up as needed Mode of Arrival: Wheelchair Information source: Patient Notes: HPI; 64-year-old male presents emergency room complaining of leg cramping for the past 4 days. Today he noticed hematuria in his Diaz bag which he has had for 2 months. [facility] did come out and change it today which did not improve the hematuria. He denies any nausea, vomiting, no abdominal pain. PE: Alert and oriented x3, moderate distress noted. Lungs are clear to auscultation without rales rhonchi wheezes, heart tachycardic without murmurs rubs or gallops, abdomen soft nontender to palpation. I have greeted and performed a rapid initial assessment of this patient. A comprehensive ED assessment and evaluation of the patient, analysis of test results and completion of medical decision making process will be conducted by an additional ED providers. TRAVEL OUTSIDE OF THE [place] IN LAST 30 DAYS: No - Related Data Allergies/Adverse Reactions: No Known Allergies Allergy (Verified 02/04/20 17:04) Past Medical History - Past Medical History Cardiac Medical History: Reports: Hx Coronary Artery Disease, Hx Heart Attack, Hx Hypercholesterolemia, Hx Hypertension Denies: Hx Atrial Fibrillation, Hx Congestive Heart Failure Pulmonary Medical History: Reports: Hx Asthma, Hx Bronchitis, Hx COPD Neurological Medical History: Denies: Hx Seizures Endocrine Medical History: Reports: Hx Diabetes Mellitus Type 2. Denies: Hx Diabetes Mellitus Type 1, Hx Hyperthyroidism, Hx Hypothyroidism GI Medical History: Denies: Hx Cirrhosis, Hx Crohn's Disease, Hx Hepatitis, Hx Ulcerative Colitis Musculoskeltal Medical History: Denies Hx Arthritis, Denies Hx Gout Skin Medical History: Denies Hx Eczema, Denies Hx Psoriasis Psychiatric Medical History: Denies: Hx Depression Infectious Medical History: Denies: Hx Hepatitis Past Surgical History: Reports: Hx Cardiac Catheterization, Hx Cardiac Surgery - stent x 2, Hx Coronary Stent, Hx Nose Surgery - sinus sx x 2 - Immunizations Immunizations up to date: Yes Hx Diphtheria, Pertussis, Tetanus Vaccination: Yes Physical Exam - Vital signs Vitals: Temp Pulse Resp BP Pulse Ox 97.4 F 112 H 20 147/90 H 98 02/04/20 16:50 02/04/20 16:50 02/04/20 16:50 02/04/20 16:50 02/04/20 16:50 Course - Vital Signs Vital signs: Temp Pulse Resp BP Pulse Ox 97.4 F 112 H 20 147/90 H 98 02/04/20 16:50 02/04/20 16:50 02/04/20 16:50 02/04/20 16:50 02/04/20 16:50 Doctor's Discharge - Discharge Referrals: CATHERINE AVERY, O[facility] [Primary Care Provider] - Follow up as needed
[2020-02-04 17:54] LABS: APPEARANCE,URINE CLOUDY; BILIRUBIN,URINE NEGATIVE (NEGATIVE); COLOR,URINE RED; GLUCOSE, URINE NEGATIVE (NEGATIVE); KETONES,URINE NEGATIVE (NEGATIVE); LEUKOCYTE ESTERASE,URINE TRACE (NEGATIVE); NITRITE,URINE NEGATIVE (NEGATIVE); PROTEIN,URINE 100 mg/dL (NEGATIVE); URINE SPECIFIC GRAVITY 1.021; UROBILINOGEN,URINE NEGATIVE mg/dL (<2.0)
[2020-02-04 18:01] LABS: ABSOLUTE EOSINOPHILS # (AUTO) 0.2 10^3/uL (0.0-0.6); ABSOLUTE LYMPHOCYTES (AUTO) 1.4 10^3/uL (0.5-4.7); ABSOLUTE MONOCYTES (AUTO) 0.5 10^3/uL (0.1-1.4); ABSOLUTE NEUT (AUTO) 5.1 10^3/uL (1.7-8.2); BASOPHILS % (AUTO) 0.2 % (0-2); EOSINOPHILS % (AUTO) 2.7 % (0-6); HEMATOCRIT 34.9 % (37.9-51.0); HEMOGLOBIN 11.4 g/dL (13.5-17.0); LYMPHOCYTES % (AUTO) 19.3 % (13-45); MEAN CORPUSCULAR HEMOGLOBIN 26.2 pg (27.0-33.4); MEAN CORPUSCULAR HGB CONC 32.9 g/dL (32.0-36.0); MEAN CORPUSCULAR VOLUME 80 fl (80-97); PLATELET COUNT 377 10^3/uL (150-450); RED BLOOD COUNT 4.36 10^6/uL (4.35-5.55); RED CELL DISTRIBUTION WIDTH 14.7 % (11.5-14.0); SEGMENTED NEUTROPHILS % (AUTO) 70.8 % (42-78); TOTAL CELLS COUNTED % (AUTO) 100 %; WHITE BLOOD COUNT 7.2 10^3/uL (4.0-10.5)
[2020-02-04 18:17] LABS: ALBUMIN 4.2 g/dL (3.5-5.0); ALKALINE PHOSPHATASE 102 U/L (38-126); ANION GAP 8 (5-19); ASPARTATE AMINO TRANSFERASE 19 U/L (17-59); BILIRUBIN,TOTAL 0.3 mg/dL (0.2-1.3); BLOOD UREA NITROGEN 16 mg/dL (7-20); CALCIUM 9.9 mg/dL (8.4-10.2); CARBON DIOXIDE 25 mmol/L (22-30); CHLORIDE 101 mmol/L (98-107); CREATINE KINASE 164 U/L (55-170); GLUCOSE 131 mg/dL (75-110); POTASSIUM 4.7 mmol/L (3.6-5.0); TOTAL PROTEIN 8.2 g/dL (6.3-8.2)
--- NOTE | 2020-02-04 19:00 | ER Document Report ---
ED General - General Chief Complaint: Leg Pain Stated Complaint: LEG PAIN Time Seen by Provider: 02/04/20 17:05 Primary Care Provider: CATHERINE AVERY PA-C [Primary Care Provider] - Follow up as needed Mode of Arrival: Wheelchair TRAVEL OUTSIDE OF THE [place] IN LAST 30 DAYS: No - HPI Notes: Patient is a 64-year-old male who presents to the emergency department for evaluation. First he complains of legs cramps. He states that they are particularly worsened with moving his legs. He admits he was hospitalized for a few months recently. He was discharged from the hospital about a month ago. He states has been doing physical therapy. He is been having intermittent cramping in his legs, seems to involve his entire legs. He denies any numbness. No injury to the area. The patient also states he noticed hematuria in his Diaz bag. He has had an indwelling Diaz since his hospitalization. He has urological follow-up next week. The patient states that he had the same catheter in for some time. Home health changed to today, it had been bloody before that. He states that changing of the catheter did not improve the hematuria. He denies any fevers or chills. No nausea or vomiting. He is eating and drinking normally. He is not on any blood thinners. - Related Data Allergies/Adverse Reactions: No Known Allergies Allergy (Verified 02/04/20 17:04) Home Medications: heart and dm Past Medical History - General Information source: Patient - Social History Smoking Status: Never Smoker Chew tobacco use (# tins/day): No Frequency of alcohol use: None Drug Abuse: None Family History: CAD, DM, Hypertension. denies: Malignancy Patient has homicidal ideation: No - Past Medical History Cardiac Medical History: Reports: Hx Coronary Artery Disease, Hx Heart Attack, Hx Hypercholesterolemia, Hx Hypertension Denies: Hx Atrial Fibrillation, Hx Congestive Heart Failure Pulmonary Medical History: Reports: Hx Asthma, Hx Bronchitis, Hx COPD Neurological Medical History: Denies: Hx Seizures Endocrine Medical History: Reports: Hx Diabetes Mellitus Type 2. Denies: Hx Diabetes Mellitus Type 1, Hx Hyperthyroidism, Hx Hypothyroidism GI Medical History: Denies: Hx Cirrhosis, Hx Crohn's Disease, Hx Hepatitis, Hx Ulcerative Colitis Musculoskeletal Medical History: Denies Hx Arthritis, Denies Hx Gout Skin Medical History: Denies Hx Eczema, Denies Hx Psoriasis Psychiatric Medical History: Denies: Hx Depression Infectious Medical History: Denies: Hx Hepatitis Past Surgical History: Reports: Hx Cardiac Catheterization, Hx Cardiac Surgery - stent x 2, Hx Coronary Stent, Hx Nose Surgery - sinus sx x 2 - Immunizations Immunizations up to date: Yes Hx Diphtheria, Pertussis, Tetanus Vaccination: Yes Review of Systems - Review of Systems Genitourinary: See HPI Musculoskeletal: See HPI -: Yes All other systems reviewed and negative Physical Exam - Vital signs Vitals: Temp Pulse Resp BP Pulse Ox 97.4 F 112 H 20 147/90 H 98 02/04/20 16:50 02/04/20 16:50 02/04/20 16:50 02/04/20 16:50 02/04/20 16:50 - Notes Notes: This is a 64-year-old male who appears his stated age, no acute distress. Head is normocephalic and atraumatic, pupils are equal round, reactive to light. Oral mucosa is moist. Heart regular rate and rhythm, lungs encrustation bilaterally. Abdomen is soft, nontender, normoactive bowel sounds. I am unable to palpate any firmness or fullness to the bladder. The patient's extremities without cyanosis or clubbing. Neurovascularly intact distally. He has no posterior calf tenderness. He has gross blood in urine draining into his Diaz catheter. There is not appear to be any trauma or active bleeding at the urethral meatus. No distal penis tenderness to palpation. No obvious clots in the Diaz bag. Skin is warm and dry. Course - Re-evaluation Re-evalutation: 02/04/20 18:59 Patient presents to the emergency department for evaluation. He had initial laboratory investigations as ordered through triage. The patient has no pain at this time. His electrolytes failed to reveal any significant abnormality that would be contributing to his cramps. I did add a magnesium level to be thorough. 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 We will be had an order bladder irrigation to try and clear the hematuria. His urine is sent for culture. He does not have any overwhelming signs of infection beyond the large blood present at this time. He Tyshawn has urological follow-up. Patient is stable, we will continue to monitor. 05/14/20 20:01 Clots were irrigated from the bladder, urine is still bloody but improved. Given his significant UTIs in the past, I will been treated with antibiotics. I encouraged the patient to talk to his physical therapist about the leg cramps that he has been having, see if they have any suggestions. Otherwise we will send him with antibiotics and close follow-up. He is to return to the ED with worsening. 02/04/20 20:03 I reviewed patient's cultures in the past. He has had multiple MRSA positive blood cultures. I will go and treat the patient with Bactrim, which should cover community-acquired MRSA, as well as most normal urinary pathogens. He is given his first dose here, will send him with a prescription for 1 week. - Vital Signs Vital signs: Temp Pulse Resp BP Pulse Ox 97.4 F 112 H 20 147/90 H 98 02/04/20 17:05 02/04/20 16:50 02/04/20 16:50 02/04/20 16:50 02/04/20 16:50 - Laboratory Result Diagrams: 02/04/20 17:45 02/04/20 17:45 Laboratory results interpreted by me: 02/04/20 02/04/20 02/04/20 17:21 17:45 17:45 Hgb 11.4 L Hct 34.9 L MCH 26.2 L RDW 14.7 H Sodium 134.4 L Glucose 131 H POC Glucose Urine Protein 100 H Urine Blood LARGE H Ur Leukocyte Esterase TRACE H 02/04/20 18:05 Hgb Hct MCH RDW Sodium Glucose POC Glucose 117 H Urine Protein Urine Blood Ur Leukocyte Esterase Discharge - Discharge Clinical Impression: Leg cramps Hematuria Qualifiers: Hematuria type: gross Qualified Code(s): R31.0 - Gross hematuria Condition: Stable Disposition: HOME, SELF-CARE Instructions: Hematuria ([facility]), Leg Cramps ([facility]) Additional Instructions: Your urine showed blood, but no other obvious signs of infection. It was sent for urine culture. Please take the antibiotics as prescribed, starting tomorrow morning. Follow-up with urology as scheduled. In regards to your leg cramps, no electrolyte abnormalities were found as a cause. My suspicion is that this is from increased physical therapy. Please discuss this cramping with your therapist, follow their recommendations. Follow-up with primary care next week. If you develop worsening or new concerning symptoms of any sort, please return immediately to the emergency department for reevaluation. Referrals: CATHERINE AVERY PA-C [Primary Care Provider] - Follow up as needed
[2020-02-04] MEDS ORDERED: SULFAMETHOXAZOLE/TRIMETHOPRIM 800-160 MG TABLET PO ONE (20:02)
[2020-02-04 20:49] VITALS: BP 159/95
== END 2020-02-04 20:58 | disposition home or self-care (01) ==
LOC: ER 16:46
DX: R25.2 Cramp and spasm (principal); R31.0 Gross hematuria; I25.10 Atherosclerotic heart disease of native coronary artery without angina pectoris; I10 Essential (primary) hypertension; I25.2 Old myocardial infarction; J44.9 Chronic obstructive pulmonary disease, unspecified; E11.9 Type 2 diabetes mellitus without complications; Z95.5 Presence of coronary angioplasty implant and graft; Z96.0 Presence of urogenital implants; Z79.899 Other long term (current) drug therapy; Z87.440 Personal history of urinary (tract) infections
CPT/HCPCS: 99283; 36415; 87086; 82553; 82962; 82550; 83735; 85025; 80053; 81001; A9270

== ENCOUNTER 2020-02-14 15:41 | Emergency (ER) | payer MEDICARE ==
--- NOTE | 2020-02-14 15:59 | ER Document Report ---
ED Medical Screen (RME) - General Chief Complaint: Urinary Problem Stated Complaint: GROIN PAIN Time Seen by Provider: 02/14/20 15:54 Primary Care Provider: CATHERINE AVERY PA-C [Primary Care Provider] - Follow up as needed Mode of Arrival: Medic Information source: Patient Notes: 64-year-old male presents emergency department with complaints of penile pain from his Diaz catheter. Reports decreased urine output. Reports he feels pressure irritation around his penis. No other complaints such as fever vomiting diarrhea. I have greeted and performed a rapid initial assessment of this patient. A comprehensive ED assessment and evaluation of the patient, analysis of test results and completion of the medical decision making process will be conducted by additional ED providers. TRAVEL OUTSIDE OF THE [place] IN LAST 30 DAYS: No - Related Data Allergies/Adverse Reactions: No Known Allergies Allergy (Verified 02/04/20 17:04) Past Medical History - Past Medical History Cardiac Medical History: Reports: Hx Coronary Artery Disease, Hx Heart Attack, Hx Hypercholesterolemia, Hx Hypertension Denies: Hx Atrial Fibrillation, Hx Congestive Heart Failure Pulmonary Medical History: Reports: Hx Asthma, Hx Bronchitis, Hx COPD Neurological Medical History: Denies: Hx Seizures Endocrine Medical History: Reports: Hx Diabetes Mellitus Type 2. Denies: Hx Diabetes Mellitus Type 1, Hx Hyperthyroidism, Hx Hypothyroidism GI Medical History: Denies: Hx Cirrhosis, Hx Crohn's Disease, Hx Hepatitis, Hx Ulcerative Colitis Musculoskeltal Medical History: Denies Hx Arthritis, Denies Hx Gout Skin Medical History: Denies Hx Eczema, Denies Hx Psoriasis Psychiatric Medical History: Denies: Hx Depression Infectious Medical History: Denies: Hx Hepatitis Past Surgical History: Reports: Hx Cardiac Catheterization, Hx Cardiac Surgery - stent x 2, Hx Coronary Stent, Hx Nose Surgery - sinus sx x 2 - Immunizations Immunizations up to date: Yes Hx Diphtheria, Pertussis, Tetanus Vaccination: Yes Physical Exam - Vital signs Vitals: Temp Pulse Resp BP Pulse Ox 97.6 F 69 14 154/90 H 97 02/14/20 15:46 02/14/20 15:46 02/14/20 15:46 02/14/20 15:46 02/14/20 15:46 Course - Vital Signs Vital signs: Temp Pulse Resp BP Pulse Ox 97.6 F 69 14 154/90 H 97 02/14/20 15:55 02/14/20 15:46 02/14/20 15:46 02/14/20 15:46 02/14/20 15:46 Doctor's Discharge - Discharge Referrals: CATHERINE AVERY PA-C [Primary Care Provider] - Follow up as needed
[2020-02-14] MEDS ORDERED: HUM INSULIN NPH/REG INSULIN HM 100 UNIT/1 ML 3 ML SUBCUT ONE (16:38)
[2020-02-14 17:18] LABS: ABSOLUTE BASOPHILS # (AUTO) 0.1 10^3/uL (0.0-0.2); ABSOLUTE EOSINOPHILS # (AUTO) 0.2 10^3/uL (0.0-0.6); ABSOLUTE MONOCYTES (AUTO) 0.6 10^3/uL (0.1-1.4); ABSOLUTE NEUT (AUTO) 8.3 10^3/uL (1.7-8.2); BASOPHILS % (AUTO) 0.6 % (0-2); EOSINOPHILS % (AUTO) 1.6 % (0-6); HEMATOCRIT 36.7 % (37.9-51.0); HEMOGLOBIN 12.2 g/dL (13.5-17.0); LYMPHOCYTES % (AUTO) 10.2 % (13-45); MEAN CORPUSCULAR HEMOGLOBIN 26.6 pg (27.0-33.4); MEAN CORPUSCULAR HGB CONC 33.3 g/dL (32.0-36.0); MEAN CORPUSCULAR VOLUME 80 fl (80-97); PLATELET COUNT 453 10^3/uL (150-450); RED BLOOD COUNT 4.59 10^6/uL (4.35-5.55); RED CELL DISTRIBUTION WIDTH 14.4 % (11.5-14.0); SEGMENTED NEUTROPHILS % (AUTO) 81.6 % (42-78); TOTAL CELLS COUNTED % (AUTO) 100 %; WHITE BLOOD COUNT 10.1 10^3/uL (4.0-10.5)
[2020-02-14 17:24] LABS: INTERNATIONAL RATION (INR) 0.93; PROTHROMBIN TIME 12.5 SEC (11.4-15.4)
[2020-02-14 17:28] LABS: APPEARANCE,URINE CLEAR; BILIRUBIN,URINE NEGATIVE (NEGATIVE); COLOR,URINE YELLOW; GLUCOSE, URINE NEGATIVE (NEGATIVE); KETONES,URINE NEGATIVE (NEGATIVE); LEUKOCYTE ESTERASE,URINE MODERATE (NEGATIVE); NITRITE,URINE NEGATIVE (NEGATIVE); PROTEIN,URINE NEGATIVE (NEGATIVE); URINE SPECIFIC GRAVITY 1.013; UROBILINOGEN,URINE NEGATIVE mg/dL (<2.0)
[2020-02-14 17:36] LABS: ALBUMIN 4.2 g/dL (3.5-5.0); ALKALINE PHOSPHATASE 107 U/L (38-126); ANION GAP 11 (5-19); ASPARTATE AMINO TRANSFERASE 19 U/L (17-59); BILIRUBIN,TOTAL 0.3 mg/dL (0.2-1.3); BLOOD UREA NITROGEN 19 mg/dL (7-20); CALCIUM 10.3 mg/dL (8.4-10.2); CARBON DIOXIDE 22 mmol/L (22-30); CHLORIDE 95 mmol/L (98-107); GLUCOSE 118 mg/dL (75-110); TOTAL PROTEIN 8.3 g/dL (6.3-8.2)
--- NOTE | 2020-02-14 18:13 | ER Document Report ---
Entered by WILLIAM FERRER SCRIBE 02/14/20 [id number] Acting as scribe for:PATRICIA LEWIS DO ED General - General Chief Complaint: Urinary Problem Stated Complaint: GROIN PAIN Time Seen by Provider: 02/14/20 15:54 Primary Care Provider: CATHERINE AVERY PA-C [Primary Care Provider] - Follow up as needed Mode of Arrival: Medic Information source: Patient Notes: This 64 year old male patient presents to the emergency department today with complaints of pain in his groin for the past x1 day. Patient states the pain is sharp and similar to a cramp, located in his groin above the bladder. Patient states he has a catheter and the last time the bag was replaced was x1 week ago. Patient states he has urinated this morning. Patient states he was here x10 days ago for pain in his groin and hematuria, which was from a UTI. Patient denies any fever, nausea, vomiting, or diarrhea. Patient states he sometimes feels "hot and sweaty". Patient has a history of diabetes mellitus and states his sugar levels have been normal when checking at home. TRAVEL OUTSIDE OF THE [place] IN LAST 30 DAYS: No - Related Data Allergies/Adverse Reactions: No Known Allergies Allergy (Verified 02/04/20 17:04) Past Medical History - General Information source: Patient - Social History Smoking Status: Unknown if Ever Smoked Lives with: Family Family History: CAD, DM, Hypertension Patient has homicidal ideation: No - Past Medical History Cardiac Medical History: Reports: Hx Coronary Artery Disease, Hx Heart Attack, Hx Hypercholesterolemia, Hx Hypertension Pulmonary Medical History: Reports: Hx Asthma, Hx Bronchitis, Hx COPD Endocrine Medical History: Reports: Hx Diabetes Mellitus Type 2 Past Surgical History: Reports: Hx Cardiac Catheterization, Hx Cardiac Surgery - stent x 2, Hx Coronary Stent, Hx Nose Surgery - sinus sx x 2 - Immunizations Immunizations up to date: Yes Hx Diphtheria, Pertussis, Tetanus Vaccination: Yes Review of Systems - Review of Systems Constitutional: See HPI. denies: Fever EENT: No symptoms reported Cardiovascular: No symptoms reported Respiratory: No symptoms reported Gastrointestinal: See HPI. denies: Diarrhea, Nausea, Vomiting Genitourinary: See HPI, Pain Male Genitourinary: No symptoms reported Musculoskeletal: No symptoms reported Skin: No symptoms reported Hematologic/Lymphatic: No symptoms reported Neurological/Psychological: No symptoms reported -: Yes All other systems reviewed and negative Physical Exam - Vital signs Vitals: Temp Pulse Resp BP Pulse Ox 97.6 F 69 14 154/90 H 97 02/14/20 15:46 02/14/20 15:46 02/14/20 15:46 02/14/20 15:46 02/14/20 15:46 - General General appearance: Appears well, Alert - HEENT Head: Normocephalic, Atraumatic Eyes: Normal Pupils: PERRL Pharynx: Normal - Respiratory Respiratory status: No respiratory distress Chest status: Nontender Breath sounds: Normal Chest palpation: Normal - Cardiovascular Rhythm: Regular Heart sounds: Normal auscultation Murmur: No - Abdominal Inspection: Normal Distension: No distension Bowel sounds: Normal Tenderness: Nontender - Extremities General upper extremity: Normal inspection. No: Edema General lower extremity: Normal inspection. No: Edema - Neurological Neuro grossly intact: Yes Cognition: Other - Poor memory reporting medical history. Orientation: AAOx4 - Psychological Associated symptoms: Normal affect, Normal mood - Skin Skin Temperature: Warm Skin Moisture: Dry Skin Color: Normal Course - Re-evaluation Re-evalutation: 02/14/20 18:05 MDM 64 year old male with complex past medical history - recovering from extended stay (8 weeks in [facility]) for vertebral osteomyelitis, htn, dm and deaf left ear is here with what appear as bladder cramps and acute retention. James removed and drained 1500 ml when replaced and he feels better. No fever and no chest pain and no sob. Apparently, some debris had occluded the james and that is now better. No acute infection noted here but there is some hyponatremia. He can follow up regarding this. He is stable here. - Vital Signs Vital signs: Temp Pulse Resp BP Pulse Ox 97.6 F 69 14 154/90 H 97 02/14/20 15:55 02/14/20 15:46 02/14/20 15:46 02/14/20 15:46 02/14/20 15:46 - Laboratory Result Diagrams: 02/14/20 17:05 02/14/20 17:05 Laboratory results interpreted by me: 02/14/20 02/14/20 02/14/20 17:01 17:05 17:05 Hgb 12.2 L Hct 36.7 L MCH 26.6 L RDW 14.4 H Plt Count 453 H Lymph % (Auto) 10.2 L Absolute Neuts (auto) 8.3 H Seg Neutrophils % 81.6 H Sodium 128.2 L Chloride 95 L Glucose 118 H POC Glucose 114 H Calcium 10.3 H Total Protein 8.3 H Urine Blood Ur Leukocyte Esterase 02/14/20 17:05 Hgb Hct MCH RDW Plt Count Lymph % (Auto) Absolute Neuts (auto) Seg Neutrophils % Sodium Chloride Glucose POC Glucose Calcium Total Protein Urine Blood LARGE H Ur Leukocyte Esterase MODERATE H Discharge - Discharge Clinical Impression: Complication, blocked James catheter Hypertension Qualifiers: Hypertension type: unspecified Qualified Code(s): I10 - Essential (primary) hypertension Diabetes Qualifiers: Diabetes mellitus type: type 2 Diabetes mellitus fci insulin use: with fci use Diabetes mellitus complication status: without complication Qualified Code(s): E11.9 - Type 2 diabetes mellitus without complications; Z79.4 - longterm (current) use of insulin Condition: Stable Disposition: HOME, SELF-CARE Instructions: James Catheter Care ([facility]), Hyponatremia ([facility]) Additional Instructions: Keep your follow up with the Urologist - Dr. Chavarria - and return here for any problems or any concerns including but not limited to fever, weakness or other problems or concerns. Continue with the physical therapy you are doing. Your sodium in your blood was a bit low and needs to be rechecked. Have that rechecked in the next week. Referrals: CATHERINE AVERY PA-C [Primary Care Provider] - Follow up as needed I personally performed the services described in the documentation, reviewed and edited the documentation which was dictated to the scribe in my presence, and it accurately records my words and actions.
[2020-02-14 19:13] VITALS: BP 137/79
== END 2020-02-14 20:01 | disposition home or self-care (01) ==
LOC: ER 15:41
DX: T83.9XXA Unspecified complication of genitourinary prosthetic device, implant and graft, initial encounter (principal); I10 Essential (primary) hypertension; R39.198 Other difficulties with micturition; R10.30 Lower abdominal pain, unspecified; E11.9 Type 2 diabetes mellitus without complications; Z79.4 Long term (current) use of insulin; I25.10 Atherosclerotic heart disease of native coronary artery without angina pectoris; I25.2 Old myocardial infarction; J44.9 Chronic obstructive pulmonary disease, unspecified
CPT/HCPCS: 99283; 51702; 36415; 82962; 83605; 85025; 85610; 80053; 81001; A9270; J1815

== ENCOUNTER 2020-03-09 02:19 | Emergency (ER) | payer MEDICARE ==
[2020-03-09] MEDS ORDERED: LIDOCAINE 2% URO-JET 5 ML KIT MM ONE (03:10)
--- NOTE | 2020-03-09 03:10 | ER Document Report ---
ED GI/ - General Chief Complaint: Needs Urinary Cath Replaced Stated Complaint: CATHETER DISLODGED Time Seen by Provider: 03/09/20 03:09 Primary Care Provider: CATHERINE AVERY PA-C [Primary Care Provider] - Follow up as needed Notes: Patient is a 64-year-old male who comes emergency department for chief complaint of his Diaz catheter becoming dislodged. He states that this was nontraumatic, he states it simply fell out and it looked like the balloon "somehow just deflated". He denies any bleeding. He denies abdominal pain. He states he was told he has an enlarged prostate and he is following with urology for additional management for this with a current indwelling Diaz. He denies any other complaints including fever, flank pain, nausea, vomiting. He states that he was told that if it came out that he needed to come to the emergency department immediately and he is "scared of is going to bust". TRAVEL OUTSIDE OF THE [place] IN LAST 30 DAYS: No - Related Data Allergies/Adverse Reactions: No Known Allergies Allergy (Verified 02/04/20 17:04) Home Medications: flexeril,advair,metformin,magnesium,colace,finasteride,asa 81 mg,. lposartan, flomax Past Medical History - General Information source: Patient - Social History Smoking Status: Never Smoker Frequency of alcohol use: None Drug Abuse: None Lives with: Family Family History: CAD, DM, Hypertension Patient has homicidal ideation: No - Past Medical History Cardiac Medical History: Reports: Hx Coronary Artery Disease, Hx Heart Attack, Hx Hypercholesterolemia, Hx Hypertension Denies: Hx Atrial Fibrillation, Hx Congestive Heart Failure Pulmonary Medical History: Reports: Hx Asthma, Hx Bronchitis, Hx COPD Neurological Medical History: Denies: Hx Seizures Endocrine Medical History: Reports: Hx Diabetes Mellitus Type 2. Denies: Hx Diabetes Mellitus Type 1, Hx Hyperthyroidism, Hx Hypothyroidism GI Medical History: Denies: Hx Cirrhosis, Hx Crohn's Disease, Hx Hepatitis, Hx Ulcerative Colitis Musculoskeletal Medical History: Denies Hx Arthritis, Denies Hx Gout Skin Medical History: Denies Hx Eczema, Denies Hx Psoriasis Psychiatric Medical History: Denies: Hx Depression Infectious Medical History: Denies: Hx Hepatitis Past Surgical History: Reports: Hx Cardiac Catheterization, Hx Cardiac Surgery - stent x 2, Hx Coronary Stent, Hx Nose Surgery - sinus sx x 2 - Immunizations Immunizations up to date: Yes Hx Diphtheria, Pertussis, Tetanus Vaccination: Yes Review of Systems - Review of Systems Constitutional: No symptoms reported EENT: No symptoms reported Cardiovascular: No symptoms reported Respiratory: No symptoms reported Gastrointestinal: No symptoms reported Genitourinary: See HPI Male Genitourinary: No symptoms reported Musculoskeletal: No symptoms reported Skin: No symptoms reported Hematologic/Lymphatic: No symptoms reported Neurological/Psychological: No symptoms reported Physical Exam - Vital signs Vitals: Temp Pulse Resp BP Pulse Ox 97.5 F 111 H 16 149/88 H 98 03/09/20 02:37 03/09/20 02:37 03/09/20 02:37 03/09/20 02:37 03/09/20 02:37 - Notes Notes: GENERAL: Alert, interacts well. No acute distress. HEAD: Normocephalic, atraumatic. EYES: Pupils equal, round, and reactive to light. Extraocular movements intact. ENT: Oral mucosa moist, tongue midline. Oropharynx unremarkable. Airway patent. NECK: Full range of motion. Supple. Trachea midline. No lymphadenopathy. LUNGS: Clear to auscultation bilaterally, no wheezes, rales, or rhonchi. No respiratory distress. Non-tender chest wall. HEART: Regular rate and rhythm. No murmur ABDOMEN: Soft, non-tender. Non-distended. Bowel sounds present in all 4 quadrants. GENITOURINARY: No Diaz catheter is in place. There is no bleeding, tenderness, swelling, erythema noted. EXTREMITIES: Moves all 4 extremities spontaneously. No edema, normal radial and dorsalis pedis pulses bilaterally. No cyanosis. BACK: no cervical, thoracic, lumbar midline tenderness. No saddle anesthesia, normal distal neurovascular exam. Moves all extremities in full range of motion. NEUROLOGICAL: Alert and oriented x3. Normal speech. Cranial nerves II through XII grossly intact. Strength 5/5 in all extremities. PSYCH: Normal affect, normal mood. SKIN: Warm, dry, normal turgor. No rashes or lesions noted. Course - Re-evaluation Re-evalutation: Patient has a 16 [place] Diaz catheter which has come out, there appears to be a problem with the balloon, this was nontraumatic, there is no bleeding, tenderness, there is no abdominal pain, vomiting, fever. Patient has no current complaints other than needing the Diaz to urinate. Diaz has only been out for several hours. A new 16 [place] Diaz catheter was placed without any difficulty. Good clear urine was noticed in the new bag. Urine does appear infected, culture was placed, placed on Keflex after discussing pros and cons with patient. Patient has good urology follow-up already planned. Discussed follow-up and return precautions with patient. Patient states understanding and agreement. Patient recorded to be tachycardic but he is not tachycardic on my exam and has no complaints. Stable and well-appearing at time of discharge. - Vital Signs Vital signs: Temp Pulse Resp BP Pulse Ox 97.4 F 108 H 16 128/79 H 98 03/09/20 05:04 03/09/20 05:04 03/09/20 05:04 03/09/20 05:04 03/09/20 05:04 - Laboratory Laboratory results interpreted by me: 03/09/20 03:50 Urine Protein 100 H Urine Blood LARGE H Urine Nitrite POSITIVE H Ur Leukocyte Esterase MODERATE H Discharge - Discharge Clinical Impression: Dislodged Diaz catheter Qualifiers: Encounter type: initial encounter Qualified Code(s): T83.021A - Displacement of indwelling urethral catheter, initial encounter Condition: Stable Disposition: HOME, SELF-CARE Additional Instructions: A new Diaz catheter has been placed. We have urine culture growing the lab, take the antibiotic as prescribed for suspected urinary tract infection. Please follow closely with your urologist for additional management including of your enlarged prostate. Return for any concerning symptoms including developing abdominal pain, vomiting, fever, or any other concerning or worsening symptoms. Prescriptions: Cephalexin Monohydrate [Keflex 500 mg Capsule] 500 mg PO BID 7 Days #14 capsule Referrals: CATHERINE AVERY PA-C [Primary Care Provider] - Follow up as needed
[2020-03-09 04:19] LABS: APPEARANCE,URINE SLIGHTLY-CLOUDY; BILIRUBIN,URINE NEGATIVE (NEGATIVE); COLOR,URINE YELLOW; GLUCOSE, URINE NEGATIVE (NEGATIVE); KETONES,URINE NEGATIVE (NEGATIVE); LEUKOCYTE ESTERASE,URINE MODERATE (NEGATIVE); NITRITE,URINE POSITIVE (NEGATIVE); PROTEIN,URINE 100 mg/dL (NEGATIVE); URINE SPECIFIC GRAVITY 1.019; UROBILINOGEN,URINE NEGATIVE mg/dL (<2.0)
[2020-03-09 05:07] VITALS: BP 128/79
== END 2020-03-09 05:50 | disposition home or self-care (01) ==
LOC: ER 02:19
DX: T83.021A Displacement of indwelling urethral catheter, initial encounter (principal); Y84.6 Urinary catheterization as the cause of abnormal reaction of the patient, or of later complication, without mention of misadventure at the time of the procedure; N40.0 Benign prostatic hyperplasia without lower urinary tract symptoms; I25.10 Atherosclerotic heart disease of native coronary artery without angina pectoris; I10 Essential (primary) hypertension; I25.2 Old myocardial infarction; J44.9 Chronic obstructive pulmonary disease, unspecified; E11.9 Type 2 diabetes mellitus without complications; Z79.899 Other long term (current) drug therapy; Z79.84 Long term (current) use of oral hypoglycemic drugs; Z79.82 Long term (current) use of aspirin
CPT/HCPCS: 36415; 51702; 81001; 87086; 87088; 87186; 99283

== ENCOUNTER 2020-07-28 11:31 | Emergency (ER) | payer MEDICARE ==
[2020-07-28 12:21] LABS: ABSOLUTE BASOPHILS # (AUTO) 0.1 10^3/uL (0.0-0.2); ABSOLUTE EOSINOPHILS # (AUTO) 0.8 10^3/uL (0.0-0.6); ABSOLUTE LYMPHOCYTES (AUTO) 1.3 10^3/uL (0.5-4.7); ABSOLUTE MONOCYTES (AUTO) 0.5 10^3/uL (0.1-1.4); ABSOLUTE NEUT (AUTO) 3.4 10^3/uL (1.7-8.2); BASOPHILS % (AUTO) 1.4 % (0-2); EOSINOPHILS % (AUTO) 13.5 % (0-6); HEMATOCRIT 35.4 % (37.9-51.0); HEMOGLOBIN 11.8 g/dL (13.5-17.0); LYMPHOCYTES % (AUTO) 21.7 % (13-45); MEAN CORPUSCULAR HEMOGLOBIN 27.7 pg (27.0-33.4); MEAN CORPUSCULAR HGB CONC 33.4 g/dL (32.0-36.0); MEAN CORPUSCULAR VOLUME 83 fl (80-97); MONOCYTES % (AUTO) 7.8 % (3-13); PLATELET COUNT 372 10^3/uL (150-450); RED BLOOD COUNT 4.27 10^6/uL (4.35-5.55); RED CELL DISTRIBUTION WIDTH 14.8 % (11.5-14.0); SEGMENTED NEUTROPHILS % (AUTO) 55.6 % (42-78); TOTAL CELLS COUNTED % (AUTO) 100 %; WHITE BLOOD COUNT 6.2 10^3/uL (4.0-10.5)
[2020-07-28 12:40] LABS: ALBUMIN 4.1 g/dL (3.5-5.0); ALKALINE PHOSPHATASE 99 U/L (38-126); ANION GAP 10 (5-19); ASPARTATE AMINO TRANSFERASE 17 U/L (17-59); BILIRUBIN,DIRECT 0.1 mg/dL (0.0-0.4); BILIRUBIN,TOTAL 0.2 mg/dL (0.2-1.3); BLOOD UREA NITROGEN 14 mg/dL (7-20); CALCIUM 9.8 mg/dL (8.4-10.2); CARBON DIOXIDE 26 mmol/L (22-30); CHLORIDE 105 mmol/L (98-107); GLUCOSE 86 mg/dL (75-110); POTASSIUM 3.9 mmol/L (3.6-5.0); TOTAL PROTEIN 7.7 g/dL (6.3-8.2)
--- NOTE | 2020-07-28 12:57 | RADIOLOGY REPORT (SQ) ---
EXAM DESCRIPTION: CHEST SINGLE VIEW IMAGES COMPLETED DATE/TIME: 07/28/2020 12:34 pm REASON FOR STUDY: SOB COMPARISON: 11/13/2019 EXAM PARAMETERS: NUMBER OF VIEWS: One view. TECHNIQUE: Single frontal radiographic view of the chest acquired. RADIATION DOSE: NA LIMITATIONS: None. FINDINGS: LUNGS AND PLEURA: No opacities, masses or pneumothorax. No pleural effusion. MEDIASTINUM AND HILAR STRUCTURES: No masses. Contour normal. HEART AND VASCULAR STRUCTURES: Heart normal in size. Normal vasculature. BONES: No acute findings. HARDWARE: None in the chest. OTHER: No other significant finding. IMPRESSION: NO ACUTE RADIOGRAPHIC FINDING IN THE CHEST. TECHNICAL DOCUMENTATION: JOB ID: [id number] 2010 [email or web address]- All Rights Reserved Reading location - IP/workstation name: [email or web address]
[2020-07-28] MEDS ORDERED: NORMAL SALINE 1000 ML 1,000 ML IV ONE (13:12)
[2020-07-28] MEDS ORDERED: CEFTRIAXONE 2 GM/D5W RTU 2 GM/50 ML RTUPB IV ONE (14:22)
[2020-07-28] MEDS ORDERED: METHYLPREDNISOLONE INJ 125 MG/2 ML SDV IV ONE (14:29)
[2020-07-28] MEDS ORDERED: IPRATROPIUM BROMIDE 0.02% NEB 0.5 MG/2.5 ML AMPUL NEB ONE (14:29)
[2020-07-28] MEDS ORDERED: ALBUTEROL SULFATE 0.083% NEB 2.5 MG/3 ML AMPUL NEB ONE (14:29)
--- NOTE | 2020-07-28 14:31 | RADIOLOGY REPORT (SQ) ---
EXAM DESCRIPTION: CTA CHEST IMAGES COMPLETED DATE/TIME: 07/28/2020 1:44 pm REASON FOR STUDY: cancer/sob COMPARISON: None. TECHNIQUE: CT scan of the chest performed using helical scanning technique with dynamic intravenous contrast injection. Images reviewed with lung, soft tissue and bone windows. Reconstructed coronal and sagittal MPR images reviewed. Additional 3 dimensional post-processing performed to develop Maximal Intensity Projection images (TN P). All images stored on PACS. All CT scanners at this facility use dose modulation, iterative reconstruction, and/or weight based d osing when appropriate to reduce radiation dose to as low as reasonably achievable (ALARA). [facility]: Dose Right [facility]: CareDose [facility]: Dose Right [facility]: Teradose 4D [facility]: [employer] CONTRAST TYPE AND DOSE: contrast/concentration: Isovue 350.00 mmol/ml; Total Contrast Delivered: 66. 0 ml; Total Saline Delivered: 57.0 ml Contrast bolus optimized for the pulmonary arteries. Imaging delayed because of patient distress. RENAL FUNCTION: GFR > 60. RADIATION DOSE: CT Rad equipment meets quality standard of care and radiation dose reduction techniq ues were employed. CTDIvol: 6.6 - 19.8 mGy. DLP: 718 mGy-cm. . LIMITATIONS: . Contrast injection delayed during the scan because of distress by the patient. Inje ction resumed after ensuring patient safety. FINDINGS: LUNGS AND PLEURA: No masses, infiltrates, or pneumothorax. No pleural effusions or pleura l calcifications. AORTA AND GREAT VESSELS: No aneurysm. Contrast bolus not optimized for the aorta. HEART: No pericardial effusion. No significant coronary artery calcifications. PULMONARY ARTERIES: No emboli visualized in the main pulmonary arteries or the segmental branches. HILAR AND MEDIASTINAL STRUCTURES: No identified masses or abnormal nodes. HARDWARE: None in the chest. UPPER ABDOMEN: No significant findings. Limited exam. THYROID AND OTHER SOFT TISSUES: No masses. No adenopathy. BONES: No acute or significant finding. 3D MIPS: Confirm above findings. OTHER: No other significant finding. IMPRESSION: No evidence of pulmonary emboli or aortic aneurysm. Accuracy of visualization of the pu lmonary artery's compromised by temporary delay in scanning by patient distress. Nuclear medicine pe rfusion scan or lower extremity venous Doppler may be considerations if clinically suspicious of embo li. No pulmonary infiltrates. No mediastinal pathology. COMMENT: Quality ID # [id number]: Final reports with documentation of one or more dose reduction techniques (e.g., Automated exposure control, adjustment of the mA and/or kV according to patient size, use of iterative reconstruction technique) TECHNICAL DOCUMENTATION: JOB ID: [id number] 2010 [employer]- All Rights Reserved Reading location - IP/workstation name: [email or web address]
[2020-07-28] MEDS ORDERED: INSULIN GLARGINE,HUM.REC.ANLOG 1,000 UNIT/10 ML VIAL SUBCUT ONE (14:46)
--- NOTE | 2020-07-28 14:52 | ER Document Report ---
ED General - General Chief Complaint: Shortness Of Breath Stated Complaint: SHORTNESS OF BREATH Time Seen by Provider: 07/28/20 12:42 Primary Care Provider: CATHERINE AVERY PA-C [PHYSIC[facility] [employer]] - Follow up in 3-5 days Mode of Arrival: Medic Information source: Patient TRAVEL OUTSIDE OF THE [place] IN LAST 30 DAYS: No - HPI Notes: Patient is brought in by ambulance for shortness of breath. Patient states that for several days he has had cough productive of yellow-green sputum as well as sinus congestion. He also has been short of breath. He states he has been using his inhalers at home but is still feeling short of breath. He states this morning it was significant so he called the ambulance. He is also had some we akness. No significant pain. His shortness of breath has been intermittent. It is worse with exertion and better with rest. - Related Data Allergies/Adverse Reactions: No Known Allergies Allergy (Verified 02/04/20 17:04) Home Medications: insulin 70/30, albuterol, Past Medical History - General Information source: Patient - Social History Smoking Status: Former Smoker Chew tobacco use (# tins/day): No Frequency of alcohol use: None Drug Abuse: None Family History: CAD, DM, Hypertension Patient has homicidal ideation: No - Past Medical History Cardiac Medical History: Reports: Hx Coronary Artery Disease, Hx Heart Attack, Hx Hypercholesterolemia, Hx Hypertension Denies: Hx Atrial Fibrillation, Hx Congestive Heart Failure Pulmonary Medical History: Reports: Hx Asthma, Hx Bronchitis, Hx COPD Neurological Medical History: Denies: Hx Seizures Endocrine Medical History: Reports: Hx Diabetes Mellitus Type 2. Denies: Hx Diabetes Mellitus Type 1, Hx Hyperthyroidism, Hx Hypothyroidism GI Medical History: Denies: Hx Cirrhosis, Hx Crohn's Disease, Hx Hepatitis, Hx Ulcerative Colitis Musculoskeletal Medical History: Denies Hx Arthritis, Denies Hx Gout Skin Medical History: Denies Hx Eczema, Denies Hx Psoriasis Psychiatric Medical History: Denies: Hx Depression Infectious Medical History: Denies: Hx Hepatitis Past Surgical History: Reports: Hx Cardiac Catheterization, Hx Cardiac Surgery - stent x 2, Hx Coronary Stent, Hx Genitourinary Surgery - Prostate, Hx Nose Surgery - sinus sx x 2 - Immunizations Immunizations up to date: Yes Hx Diphtheria, Pertussis, Tetanus Vaccination: Yes Review of Systems - Review of Systems Constitutional: Malaise. denies: Chills Cardiovascular: denies: Chest pain, Palpitations Respiratory: Cough, Short of breath -: Yes All other systems reviewed and negative Physical Exam - Vital signs Vitals: Temp Pulse Ox 97.6 F 98 07/28/20 11:31 07/28/20 11:31 Interpretation: Normal - General General appearance: Appears well, Alert - HEENT Head: Normocephalic, Atraumatic Eyes: Normal Pupils: PERRL - Respiratory Respiratory status: Respiratory distress - Mild Chest status: Nontender Breath sounds: Decreased air movement, Productive cough, Wheezing Chest palpation: Normal - Cardiovascular Rhythm: Tachycardia Heart sounds: Normal auscultation Murmur: No - Abdominal Inspection: Normal Distension: No distension Bowel sounds: Normal Tenderness: Nontender Organomegaly: No organomegaly - Back Back: Normal, Nontender - Extremities General upper extremity: Normal inspection, Nontender, Normal color, Normal ROM, Normal temperature General lower extremity: Nontender, Normal ROM, Normal temperature, Normal weight bearing - Neurological Neuro grossly intact: Yes Cognition: Normal Orientation: AAOx4 Bushnell Coma Scale Eye Opening: Spontaneous Michael Coma Scale Verbal: Oriented Bushnell Coma Scale Motor: Obeys Commands Bushnell Coma Scale Total: 15 Speech: Normal Motor strength normal: LUE, RUE, LLE, RLE Sensory: Normal - Psychological Associated symptoms: Normal affect, Normal mood - Skin Skin Temperature: Warm Skin Moisture: Dry Skin Color: Normal Course - Re-evaluation Re-evalutation: 07/28/20 14:47 Patient presents complaint of shortness of breath. CT of the chest is not remarkable for any type of infiltrate. Patient's laboratories are reassuring. He has remained persistently tachycardic however is received several albuterol's. Looking over his previous vital signs he has been tachycardic numerous times in the past as well. He has some mild tachypnea but there is not a significant increased work of breathing. He does remain with wheezes in all hernandez even after treatments. He does have purulent green discharge from the left nostril continuously. I am going to give the patient antibiotics, as well as albuterol and Atrovent treatments. He already received several butyryl and Atrovent treatments by paramedics as well as receiving steroids by paramedics. - Vital Signs Vital signs: Temp Pulse Resp BP Pulse Ox 97.6 F 18 139/86 H 97 07/28/20 11:31 07/28/20 13:01 07/28/20 13:01 07/28/20 13:01 - Laboratory Result Diagrams: 07/28/20 11:48 07/28/20 11:48 Laboratory results interpreted by me: 07/28/20 11:48 RBC 4.27 L Hgb 11.8 L Hct 35.4 L RDW 14.8 H Eos % (Auto) 13.5 H Absolute Eos (auto) 0.8 H - Diagnostic Test Radiology reviewed: Image reviewed, Reports reviewed - EKG Interpretation by Me EKG shows normal: Sinus rhythm Rate: Tachycardia - 120 Rhythm: NSR [place]/QRS: Left axis deviation Discharge - Discharge Clinical Impression: COPD exacerbation Condition: Stable Disposition: OTHER Instructions: Chronic Obstructive Lung Disease ([facility]) Additional Instructions: Please follow-up with your primary doctor as soon as possible Prescriptions: Cefdinir 300 mg PO BID 10 Days #20 capsule Referrals: CATHERINE AVERY PA-C [PHYSICIAN [employer]] - Follow up in 3-5 days
[2020-07-28] MEDS ORDERED: INSULIN LISPRO 100 UNIT/ML 3 ML VIAL SUBCUT SCH (16:00)
--- NOTE | 2020-07-28 18:01 | EKG REPORT ---
SEVERITY:- BORDERLINE ECG - SINUS TACHYCARDIA BASELINE ARTEFACT : Confirmed by: Palomo Roman MD 28-Jul-2020 18:00:43
--- NOTE | 2020-07-28 18:33 | PDOC CONSULTATION ---
Consultation Consult Date: 07/28/20 Attending physician:: CARLOS MANUEL BYRNE Provider Consulted: BLOSSOM CHOUDHURY Consult reason:: ED evaluation for asthma and bacterial sinusitis History of Present Illness History of Present Illness: MIC DIAZ is a 65 year old male with past medical history significant for asthma, HTN, T2DM, CAD status post stent, prostate cancer status post prostatectomy 3 weeks ago who presents with 2 days of progressive shortness of breath/cough with yellow mucus/wheezing. Patient uses nebulizer at home but has recently run out of his albuterol. He denies any fever/chills/nausea/diarrhea/abdominal pain. He states he did vomit one time when the copious mucus from his nose gagged him. He denies any blood in his vomit or stool. He states his postop period after a prostatectomy has been doing very well. He has been taking all of his home medications consistently. He denies any exposure to sick contacts and states he stays at home essentially all the time because he is fearful of pres[place] COVID-19. Past Medical History Cardiac Medical History: Reports: Coronary Artery Disease, Myocardial Infarction, Hyperlipidema, Hypertension Denies: Atrial Fibrillation, Congestive Heart Failure Pulmonary Medical History: Reports: Asthma, Bronchitis, Chronic Obstructive Pulmonary Disease (COPD) Neurological Medical History: Denies: Seizures Endocrine Medical History: Reports: Diabetes Mellitus Type 2 Denies: Diabetes Mellitus Type 1, Hyperthyroidism, Hypothyroidism GI Medical History: Denies: Cirrhosis, Crohn's Disease, Hepatitis, Ulcerative Colitis Musculoskeltal Medical History: Denies: Arthritis, Gout Skin Medical History: Denies: Eczema, Psoriasis Psychiatric Medical History: Denies: Depression Hematology: Denies: Anemia, Bleeding Tendencies Past Surgical History Past Surgical History: Reports: Cardiac Catheterization, Coronary Stent, Other - Prostatectomy Social History Information Source: Patient, Emergency Med Personnel Smoking Status: Former Smoker Electronic Cigarette use?: No Frequency of Alcohol Use: None Hx Recreational Drug Use: No Drugs: None Hx Prescription Drug Abuse: No - Advance Directive Resuscitation Status: Full Code Family History Family History: CAD, DM, Hypertension Parental Family History Reviewed: Yes Children Family History Reviewed: Yes Sibling(s) Family History Reviewed.: Yes Medication/Allergy Home Medications: Albuterol Sulfate [Albuterol Sulfate Hfa] 2 puff IH Q6 11/13/19 Albuterol Sulfate [Ventolin 0.083% Neb 2.5 mg/3 mL Ampul] 1 vial NEB RTQ6 11/13/19 Fluticasone/Salmeterol [Advair 500-50 Diskus 14 Dose/Diskus] 1 puff IH Q12 11/13/19 Insulin Aspart Prot/Insuln Asp [Novolog Mix 70-30 Flexpen] 8 unit SQ QPM 11/13/19 Insulin Aspart Prot/Insuln Asp [Novolog Mix 70-30 Flexpen] 15 unit SQ QAM 11/13/19 Losartan Potassium [Cozaar 50 mg Tablet] 50 mg PO Q12 11/13/19 Metformin HCl [Glucophage 500 mg Tablet] 500 mg PO BID 11/13/19 Tamsulosin HCl [Flomax] 0.4 mg PO DAILY 11/13/19 Tiotropium [place] [Spiriva Respimat] 1 puff IH DAILY 11/13/19 Amlodipine Besylate [Norvasc 5 mg Tablet] 5 mg PO QHS tablet 11/23/19 Vancomycin HCl [Vancocin Inj 1000 mg Vial] 1,000 mg IV Q8 vial 11/23/19 Sulfamethoxazole/Trimethoprim [Bactrim Ds Tablet] 1 each PO BID #14 tablet 02/04/20 Cephalexin Monohydrate [Keflex 500 mg Capsule] 500 mg PO BID 7 Days #14 capsule 03/09/20 Cefdinir 300 mg PO BID 10 Days #20 capsule 07/28/20 Allergies/Adverse Reactions: No Known Allergies Allergy (Verified 02/04/20 17:04) Review of Systems All systems: reviewed and no additional remarkable complaints except as stated - Per HPI otherwise negative Physical Exam Vital Signs: Temp Pulse Resp BP Pulse Ox 97.6 F 16 127/79 H 98 07/28/20 11:31 07/28/20 17:01 07/28/20 17:01 07/28/20 17:01 Intake & Output 07/27/20 07/28/20 07/29/20 06:59 06:59 06:59 Intake Total 1050 Balance 1050 Weight 93.7 kg Exam: General appearance: PRESENT: no acute distress, well-developed, well-nourished, states he feels much better since arriving to the ED Head exam: PRESENT: atraumatic, normocephalic Eye exam: PRESENT: conjunctiva pink. ABSENT: scleral icterus Mouth exam: PRESENT: moist Respiratory exam: PRESENT: Essentially clear to auscultation roma, I do not hear any significant wheezing or other abnormalities at this time. ABSENT: rales, rhonchi, wheezes Cardiovascular exam: PRESENT: RRR. ABSENT: diastolic murmur, rubs, systolic murmur; +1 BLE edema baseline per patient GI/Abdominal exam: PRESENT: normal bowel sounds, soft. ABSENT: distended, guarding, mass, organolmegaly, rebound, tenderness Neurological exam: PRESENT: alert, awake, oriented to person, oriented to place, oriented to time, oriented to situation Psychiatric exam: PRESENT: appropriate affect, normal mood Skin exam: PRESENT: dry, intact, warm Results Laboratory Results: 07/28/20 11:48 07/28/20 11:48 07/28/20 07/28/20 11:48 11:48 WBC 6.2 RBC 4.27 L Hgb 11.8 L Hct 35.4 L MCV 83 MCH 27.7 MCHC 33.4 RDW 14.8 H Plt Count 372 Seg Neutrophils % 55.6 Sodium 140.8 Potassium 3.9 Chloride 105 Carbon Dioxide 26 Anion Gap 10 BUN 14 Creatinine 0.71 Est GFR ( Amer) > 60 Glucose 86 Calcium 9.8 Total Bilirubin 0.2 AST 17 Alkaline Phosphatase 99 Total Protein 7.7 Albumin 4.1 Impressions: Chest X-Ray 07/28/20 11:41 IMPRESSION: NO ACUTE RADIOGRAPHIC FINDING IN THE CHEST. Chest/Abdomen CTA 07/28/20 13:11 IMPRESSION: No evidence of pulmonary emboli or aortic aneurysm. Accuracy of visualization of the pulmonary artery's compromised by temporary delay in scanning by patient distress. Nuclear medicine perfusion scan or lower extremity venous Doppler may be considerations if clinically suspicious of emboli. No pulmonary infiltrates. No mediastinal pathology. Assessment and Plan - Diagnosis (1) Acute bacterial sinusitis Is this a current diagnosis for this admission?: Yes Plan: Significant yellow mucus from nose per patient amount of Recommend prescribing Augmentin 875 mg twice daily for 5 days Mucinex as needed if this is effective for the patient, scant evidence for this intervention but does seem to help some people Nasal saline spray 3 times daily as needed (2) COPD exacerbation Is this a current diagnosis for this admission?: Yes Plan: Mild Wheezing essentially resolved after getting Solu-Medrol and nebulizer treatment in ED Recommend prednisone 40 mg daily for 5 days Refill patient nebulizer medication as he has recently run out of it, he states he only uses albuterol and denies using duo nebs (3) Diabetes mellitus type 2 in nonobese Is this a current diagnosis for this admission?: Yes Plan: Well-controlled per patient, states he frequently checks his blood sugar faithfully at home Discussed with patient that he will likely need to increase his insulin dosing while he was on prednisone and he stated he is well aware of this fact and will make adjustments as needed States he has all home meds with refills at home (4) Hypertension Qualifiers: Hypertension type: unspecified Qualified Code(s): I10 - Essential (primary) hypertension Is this a current diagnosis for this admission?: Yes Plan: Discussed with patient his blood pressure may also rise on prednisone he should be checking his blood pressure at least twice daily Patient should report any abnormally elevated blood pressure to his PCP for medication adjustments - Plan Summary Summary: Patient eager to go home and believe it would be reasonable with the above interventions to allow him to go home and continue outpatient treatment with close follow-up with his PCP tomorrow if possible. Patient was instructed to return to the hospital if he experiences fevers or chills or if he develops any respiratory distress or further trouble breathing. Patient voiced that he was in full agreement with this plan and would like to call his to bring him some clean clothes and then go home afterwards. I discussed all the above information with the ED attending and they are in agreement with this plan as well. Medicine service available, please call with any questions or concerns. - Time Time Spent with patient: 35 or more minutes Medications reviewed and adjusted accordingly: Yes Anticipated Discharge Disposition: Home, Self Care Anticipated Discharge Timeframe: within 24 hours
[2020-07-28 19:01] VITALS: BP 159/82
== END 2020-07-28 19:00 | disposition home or self-care (01) ==
LOC: ER 11:31
DX: J01.80 Other acute sinusitis (principal); B96.89 Other specified bacterial agents as the cause of diseases classified elsewhere; J44.1 Chronic obstructive pulmonary disease with (acute) exacerbation; R06.02 Shortness of breath; R05 Cough; I25.10 Atherosclerotic heart disease of native coronary artery without angina pectoris; I25.2 Old myocardial infarction; E78.5 Hyperlipidemia, unspecified; I10 Essential (primary) hypertension; E11.9 Type 2 diabetes mellitus without complications; Z79.84 Long term (current) use of oral hypoglycemic drugs
CPT/HCPCS: 93005; 99285; 96361; 96365; 36415; 82962; 85025; 80053; 71045; 71275; 93010; J7030; A9270 ×2; J0696; J7613; J7644